=== PATIENT | male | born 1945 | race Caucasian/White ===

== ENCOUNTER 2017-05-12 09:27 | Inpatient (IN) | END 2017-05-14 11:49 | disposition home health service (06) | DRG 189 ==

== ENCOUNTER 2017-05-28 07:51 | Inpatient (IN) | END 2017-06-03 19:20 | disposition home health service (06) | DRG 871 ==

== ENCOUNTER 2018-05-11 15:07 | Observation (INO) | payer MEDICARE, OTHER ==
[~2018-05-11] VITALS: Ht 165.1 cm; Wt 79.0 kg
[~2018-05-11 15:07] MED LIST: ALFU10TA2 PO; ALLO100T PO; ASPI1CPM8 PO; CLON0.5T14 PO; DONE10TA7 PO; DUTA0.5C PO; FOLI-49 PO; ISOS30TA67 PO; LEVO25TA6 PO; MONT10TA24 PO; SEVE800T7 PO; TEMA15CA PO; TRAZ-111 PO
[2018-05-11] MEDS ORDERED: ALBUTEROL 0.5% (NEB) 2.5 MG/0.5 ML AMP INH STA (15:15)
[2018-05-11] MEDS ORDERED: METHYLPREDNISOLONE 125 MG INJ IV ONE (16:00)
[2018-05-11] MEDS ORDERED: FEBU40TA PO (16:22)
[2018-05-11] MEDS ORDERED: ALLO100T PO (16:22)
[2018-05-11] MEDS ORDERED: LEVO25TA6 PO (16:23)
[2018-05-11] MEDS ORDERED: CLON1TAB13 PO (16:23)
[2018-05-11] MEDS ORDERED: MONT10TA24 PO (16:24)
[2018-05-11] MEDS ORDERED: SEVE800T7 PO (16:24)
[2018-05-11] MEDS ORDERED: FOLI-49 PO (16:24)
[2018-05-11] MEDS ORDERED: DEXL60CA2 PO (16:25)
[2018-05-11] MEDS ORDERED: ROPI0.5T2 PO (16:26)
[2018-05-11] MEDS ORDERED: ROPI0.253 PO (16:27)
[2018-05-11] MEDS ORDERED: FENO160T13 PO (16:27)
[2018-05-11] MEDS ORDERED: ASPI1CPM8 PO (16:29)
[2018-05-11] MEDS ORDERED: VILA40TA PO (16:31)
[2018-05-11] MEDS ORDERED: LORAZEPAM 2 MG INJ IV ONE (17:30)
--- NOTE | 2018-05-11 18:16 | ERD ---
ER Documentation Chief Complaint Chief Complaint SOB 1 HOUR INTO DIALYSIS HPI This is 72 male with a history of asthma, COPD, ESRD who went to [facility] ER for COPD exacerbation/short of breath this morning. He was given breathing treatments and sent home. The patient then went to dialysis just prior to arrival and he was on the chair for about an hour when he began having shortness of breath again. The patient was brought here instead. He is complaining of shortness of breath consistent with prior COPD exacerbations. No recent cough illness or fever. No chest pain. The patient has oxygen at home he is wearing his oxygen 24/ for the past couple of weeks ROS All systems reviewed and are negative except as per history of present illness. Medications Home Meds Reported Medications Vilazodone Hcl (Viibryd) 40 Mg Tablet, 40 MG PO DAILY, TAB 05/11/18 Aspirin-Dipyridamole* (Aggrenox*) 25-200 Mg Cpmp.12hr, 1 CAP PO BID, CAP 05/11/18 Fenofibrate, Micronized* (Fenofibrate*) 160 Mg Tablet, 160 MG PO DAILY, TAB 05/11/18 Ropinirole Hcl* (Ropinirole Hcl*) 0.25 Mg Tablet, 0.25 MG PO HS, TAB 05/11/18 Dexlansoprazole (Dexilant) 60 Mg Jese., 60 MG PO DAILY, #30 CAP 05/11/18 Sevelamer Carbonate* (Renvela*) 800 Mg Tablet, 0.8 GM PO WITH MEALS, TAB 05/11/18 Montelukast Sodium* (Montelukast Sodium*) 10 Mg Tablet, 10 MG PO QHS, #30 TAB 05/11/18 Folic Acid* (Folic Acid*) 1 Mg Tablet, 1 MG PO DAILY, TAB 05/11/18 Levothyroxine Sodium* (Levothyroxine Sodium*) 25 Mcg Tablet, 25 MCG PO BEFORE BREAKFAST, #30 TAB 05/11/18 Clonazepam* (Clonazepam*) 1 Mg Tablet, 1 MG PO BID PRN for ANXIETY, TAB 05/11/18 Allopurinol* (Allopurinol*) 100 Mg Tablet, 100 MG PO DAILY, TAB 05/11/18 Febuxostat* (Uloric*) 40 Mg Tablet, 40 MG PO DAILY, TAB 05/11/18 Discontinued Reported Medications Ropinirole Hcl* (Ropinirole Hcl*) 0.5 Mg Tablet, 0.5 MG PO HS, TAB 05/11/18 Trazodone Hcl* (Trazodone Hcl*) 50 Mg Tablet, 50 MG PO QHS, #30 TAB 05/28/17 Temazepam* (Temazepam*) 15 Mg Capsule, 15 MG PO HS PRN for INSOMNIA, CAP 05/28/17 Sevelamer Carbonate* (Renvela*) 800 Mg Tablet, 1.6 GM PO WITH MEALS, TAB 05/28/17 Montelukast Sodium* (Montelukast Sodium*) 10 Mg Tablet, 10 MG PO QHS, #30 TAB 05/28/17 Levothyroxine Sodium* (Levothyroxine Sodium*) 25 Mcg Tablet, 25 MCG PO BEFORE BREAKFAST, #30 TAB 05/28/17 Isosorbide Mononitrate* (Isosorbide Mononitrate*) 30 Mg Tab.er.24h, 30 MG PO DAILY, TAB 05/28/17 Folic Acid* (Folic Acid*) 1 Mg Tablet, 1 MG PO DAILY, TAB 05/28/17 Dutasteride* (Avodart*) 0.5 Mg Capsule, 0.5 MG PO DAILY, CAP 05/28/17 Clonazepam* (Clonazepam*) 0.5 Mg Tablet, 0.5 MG PO BID PRN for ANXIETY, TAB 05/28/17 Donepezil* (Aricept*) 10 Mg Tablet, 10 MG PO QHS, TAB 05/28/17 Allopurinol* (Allopurinol*) 100 Mg Tablet, 100 MG PO DAILY, TAB 05/28/17 Alfuzosin Hcl* (Alfuzosin Hcl*) 10 Mg Tab.er.24h, 10 MG PO DAILY, #30 TAB.SA 05/28/17 Aspirin-Dipyridamole* (Aggrenox*) 25-200 Mg Cpmp.12hr, 1 CAP PO DAILY, CAP 05/28/17 Allergies Allergies: Coded Allergies: No Known Allergy (Unverified , 05/11/18) PMhx/Soc History of Surgery: Yes (LEFT KIDNEY REMOVAL, LEFT ARM STENT PLACEMENT) Anesthesia Reaction: No Hx Neurological Disorder: No Hx Respiratory Disorders: Yes (COPD) Hx Cardiac Disorders: Yes Hx Psychiatric Problems: No Hx Miscellaneous Medical Probl: Yes (CKD) Hx Alcohol Use: No Hx Substance Use: No Hx Tobacco Use: No Smoking Status: Unknown if ever smoked FmHx Family History: No coronary disease Physical Exam Vitals Vital Signs Date Temp Pulse Resp B/P (MAP) Pulse Ox O2 O2 Flow FiO2 Time Delivery Rate 05/11/18 95 30 131/53 97 Nasal 3.0 17:57 (79) Cannula 05/11/18 87 19 98 Nasal 3.0 16:34 Cannula 05/11/18 83 21 155/84 99 Nasal 16:23 (107) Cannula 05/11/18 Nasal 3.0 15:15 Cannula 05/11/18 Nasal 3 15:15 Cannula 05/11/18 97.8 78 24 152/76 95 15:12 (101) Physical Exam Const: Well-developed, well-nourished Head: Atraumatic, normocephalic Eyes: Normal Conjunctiva, PERRLA, EOMI, normal sclera, no nystagmus ENT: Normal External Ears, Nose and Mouth, moist mucus membranes. Neck: Full range of motion. No meningismus, no lymphadenopathy. Resp: Moderate increased work of breathing with decreased breath sounds bilaterally] Cardio: Regular rate and rhythm, no murmurs, S1 S2 present Abd: Soft, non tender x 4, non distended. Normal bowel sounds, no guarding or rebound, no pulsitile abdominal masses or bruits Skin: No petechiae or rashes, no ecchymosis , no maculopapular rash Back: No midline or flank tenderness Ext: No cyanosis, or edema, FROM x 4, normal inspection, neurovascularly intact x 4 Neur: Awake and alert, STR 5/5 x 4, sensation intact x 4, no focal findings, cerebellum intact Psych: Normal Mood and Affect Result Diagram: 05/11/18 1524 05/11/18 1524 Results 24 hrs Laboratory Tests Test 05/11/18 15:24 White Blood Count 6.7 10^3/ul Red Blood Count 3.71 10^6/ul Hemoglobin 11.5 g/dl Hematocrit 36.6 % Mean Corpuscular Volume 98.7 fl Mean Corpuscular Hemoglobin 31.0 pg Mean Corpuscular Hemoglobin Concent 31.4 g/dl Red Cell Distribution Width 14.4 % Platelet Count 225 10^3/UL Mean Platelet Volume 9.3 fl Immature Granulocytes % 0.500 % Neutrophils % 94.3 % Lymphocytes % 2.7 % Monocytes % 2.0 % Eosinophils % 0.3 % Basophils % 0.2 % Nucleated Red Blood Cells % 0.0 /100WBC Immature Granulocytes # 0.030 10^3/ul Neutrophils # 6.3 10^3/ul Lymphocytes # 0.2 10^3/ul Monocytes # 0.1 10^3/ul Eosinophils # 0.0 10^3/ul Basophils # 0.0 10^3/ul Nucleated Red Blood Cells # 0.0 10^3/ul Prothrombin Time 12.3 Sec Prothrombin Time Ratio 1.0 INR International Normalized Ratio 0.90 Activated Partial Thromboplast Time 37.5 Sec Sodium Level 137 mmol/L Potassium Level 4.0 mmol/L Chloride Level 89 mmol/L Carbon Dioxide Level 35 mmol/L Anion Gap 13 Blood Urea Nitrogen 53 mg/dl Creatinine 8.29 mg/dl Est Glomerular Filtrat Rate mL/min mL/min Glucose Level 124 mg/dl Calcium Level 9.5 mg/dl Total Bilirubin 0.1 mg/dl Direct Bilirubin 0.00 mg/dl Indirect Bilirubin 0.1 mg/dl Aspartate Amino Transf (AST/SGOT) 13 IU/L Alanine Aminotransferase (ALT/SGPT) 9 IU/L Alkaline Phosphatase 77 IU/L Troponin I 0.015 ng/ml Total Protein 8.3 g/dl Albumin 4.6 g/dl Globulin 3.70 g/dl Albumin/Globulin Ratio 1.24 Current Medications Medications Dose Sig/Juan Start Time Status Last (Trade) Ordered Route PRN Stop Time Admin Dose Reason Admin Albuterol 10 mg ONCE STAT 05/11/18 DC 05/11/18 (Proventil INH 15:15 05/11/18 16:34 0.5% (Neb)) 15:16 125 mg ONCE ONCE 05/11/18 DC 05/11/18 Methylprednis IV 16:00 05/11/18 16:05 olone Sodium 16:01 Succinate (Solu-Medrol) Lorazepam 0.5 mg ONCE ONCE 05/11/18 DC 05/11/18 (Ativan) IV 17:30 05/11/18 17:42 17:31 Procedures/MDM EKG: Rate/Rhythm: Normal sinus rhythm with PAC, heart rate 79, incomplete right bundle branch block QRS, ST, QT: NORMAL CA, QRS, QT] Impression: Abnormal EKG PROCEDURE: XR Chest. CLINICAL INDICATION: Shortness of breath TECHNIQUE: Single portable view of the chest was obtained COMPARISON: CR CHEST 11/23/2015 FINDINGS: The trachea is midline. The cardiac silhouette and pulmonary vascularity are within normal limits. The lungs are clear. The costophrenic angles are sharp. IMPRESSION: 1. No evidence of acute cardiopulmonary disease. RPTAT: AAPP Carl Moser Physician Date Time Electronically viewed and signed by Carl Moser Physician on 05/11/2018 15:53 JL/ CC: AMOS MARQUIS DO [id number] Patient received neb treatments here 10 mg continuous with IV Solu-Medrol. I will admit the patient for observation for COPD exacerbation because he has gone to the ER twice today and is not improving. He also only had 1 hour of dialysis and may need to have this done more tonight. Departure Diagnosis: Primary Impression: COPD exacerbation Additional Impression: Shortness of breath Condition: Stable AMOS MARQUIS DO May 11, 2018 18:16
[2018-05-11] MEDS ORDERED: ONDANSETRON 4 MG INJ IV PRN (18:30)
[2018-05-11] MEDS ORDERED: ACETAMINOPHEN 325 MG TAB PO PRN (18:30)
--- NOTE | 2018-05-11 18:49 | HP ---
Date/Time of Note Date/Time of Note DATE: 05/11/18 TIME: 18:43 Assessment/Plan VTE Prophylaxis Pharmacological prophylaxis: heparin Lines/Catheters IV Catheter Type (from Nrs): Saline Lock Assessment/Plan Hospital Course 72-year-old male with end-stage renal disease who presents with shortness of breath for the last couple weeks as well as with seems like urinary retention Shortness of breath: -Given known emphysema is suspected to this though he does not have any audible wheezing. We will still treat him with bronchodilators. This is not from overloaded his x-ray is clear. We will check an echo. We will check a VQ scan as well to exclude PE per Dr Santacruz ESRD: - HD per renal Suprapubic tenderness/fullness concerning for retention: - Caraballo insertion Gout: - Allopurinol Discharge pending workup Result Diagram: 05/11/18 1524 05/11/18 1524 Results 24hrs Laboratory Tests Test 05/11/18 15:24 White Blood Count 6.7 Red Blood Count 3.71 #L Hemoglobin 11.5 #L Hematocrit 36.6 #L Mean Corpuscular Volume 98.7 Mean Corpuscular Hemoglobin 31.0 Mean Corpuscular Hemoglobin Concent 31.4 L Red Cell Distribution Width 14.4 Platelet Count 225 # Mean Platelet Volume 9.3 Immature Granulocytes % 0.500 H Neutrophils % 94.3 H Lymphocytes % 2.7 L Monocytes % 2.0 Eosinophils % 0.3 Basophils % 0.2 Nucleated Red Blood Cells % 0.0 Immature Granulocytes # 0.030 Neutrophils # 6.3 Lymphocytes # 0.2 L Monocytes # 0.1 L Eosinophils # 0.0 Basophils # 0.0 Nucleated Red Blood Cells # 0.0 Prothrombin Time 12.3 Prothrombin Time Ratio 1.0 INR International Normalized Ratio 0.90 Activated Partial Thromboplast Time 37.5 H Sodium Level 137 Potassium Level 4.0 Chloride Level 89 L Carbon Dioxide Level 35 H Anion Gap 13 Blood Urea Nitrogen 53 H Creatinine 8.29 H Est Glomerular Filtrat Rate mL/min Glucose Level 124 Calcium Level 9.5 Total Bilirubin 0.1 L Direct Bilirubin 0.00 Indirect Bilirubin 0.1 Aspartate Amino Transf (AST/SGOT) 13 L Alanine Aminotransferase (ALT/SGPT) 9 L Alkaline Phosphatase 77 Troponin I 0.015 Total Protein 8.3 H Albumin 4.6 Globulin 3.70 H Albumin/Globulin Ratio 1.24 HPI/ROS Admit Date/Time Admit Date/Time Hx of Present Illness This 72-year-old male with a history of end-stage renal disease, and emphysema who presents with shortness of breath. Patient describes shortness of breath for the last couple weeks. Has generally been tolerant to this and did not seek medical care until today. Went to an outside ER at [facility] where they gave him prednisone and nebulizer treatments. They then sent him to his normally scheduled dialysis treatment. There he complained of shortness of breath though treating procurement forester Dr. Santacruz noted clear lungs at that time. Given his complaint however he was sent to the emergency room. Here he again he has been given bronchodilators. When I saw him he feels better. His daughter is at the bedside says that he has been having a hard time even walking across the room because he gets winded. He also complains of pain in his lower pelvis feels like he is retaining urine. He does have prominent tenderness in the suprapubic region PMH/Family/Social Past Medical History Medical History: renal disease Medications Current Medications Ondansetron HCl (Zofran Inj) 4 mg ER BRIDGE PRN IV NAUSEA AND/OR VOMITING; Start 05/11/18 at 18:30; Stop 05/12/18 at 18:29 Acetaminophen (Tylenol Tab) 650 mg ER BRIDGE PRN PO MILD PAIN(1-3)OR ELEVATED TEMP; Start 05/11/18 at 18:30; Stop 05/12/18 at 18:29 IV Flush (NS 3 ml) 3 ml PER PROTOCOL IV ; Start 05/11/18 at 19:00; Status UNV Acetaminophen/ Hydrocodone Bitart ([place] (5/325)) 1 tab Q6H PRN PO MODERATE PAIN LEVEL 4-6; Start 05/11/18 at 19:00; Status UNV Heparin Sodium (Porcine) (Heparin (5000 Units/1ml)) 5,000 unit Q12 SC ; Start 05/11/18 at 21:00; Status UNV Coded Allergies: No Known Allergy (Unverified , 05/11/18) Past Surgical History Past Surgical Hx: no surgical history Family History Significant Family History: no pertinent family hx Social History Alcohol Use: none Smoking Status: Unknown if ever smoked Drug Use: none Exam/Review of Systems Vital Signs Vitals Vital Signs Date Temp Pulse Resp B/P (MAP) Pulse Ox O2 O2 Flow FiO2 Time Delivery Rate 05/11/18 95 30 131/53 97 Nasal 3.0 17:57 (79) Cannula 05/11/18 97.8 15:12 Exam Exam Appears well and is in no distress Regular rate and rhythm with flat neck veins Breathing comfortably. Lungs are clear though distant breath sounds. No wheezing Abdomen with prominent suprapubic tenderness Remedies without edema JENELLE SIMPSON MD May 11, 2018 18:49
[2018-05-11] MEDS ORDERED: HYDROCODONE/APAP (5/325) TAB PO PRN (19:00)
[2018-05-11] MEDS ORDERED: NACL 0.9% 3 ML SYG IV SCH (19:00)
[2018-05-11] MEDS ORDERED: ROPINIROLE 0.25 MG TAB PO SCH (21:00)
[2018-05-11] MEDS: HEPARIN 5,000 UNIT/1 ML VIAL SC SCH (21:25)
[2018-05-11] MEDS: DIPYRIDAMOLE/ASPIRIN (SR) CAP PO SCH (21:25)
[2018-05-11] MEDS: MONTELUKAST 10 MG TAB PO SCH (21:25)
[2018-05-11] MEDS: ALBUTEROL/IPRATROPIUM (NEB) 3 ML AMP HHN SCH (21:34)
[2018-05-11 22:00] VITALS: Ht 165.1 cm; Wt 79.0 kg
[2018-05-11 22:27] VITALS: BP 147/70; PULSE 92; RESP 18
[2018-05-11 23:03] VITALS: PULSE 93
[2018-05-12] VITALS (18 sets, daily range): BP systolic 98–151; BP diastolic 52–93; PULSE 52–98; RESP 17–20
[2018-05-12] MEDS: ALBUTEROL/IPRATROPIUM (NEB) 3 ML AMP HHN SCH ×4 (01:04→20:00)
[2018-05-12] MEDS: clonAZEPAM 0.5 MG TAB PO PRN ×2 (04:27→20:41)
[2018-05-12] MEDS: LEVOTHYROXINE 25 MCG TAB PO SCH (06:28)
--- NOTE | 2018-05-12 08:23 | CONS ---
DATE OF ADMISSION: 05/11/2018 DATE OF CONSULTATION: 05/12/2018 TYPE OF CONSULTATION: Nephrology. REASON FOR CONSULTATION: End-stage renal disease. REQUESTING PHYSICIAN: Dr. Garcia. HISTORY OF PRESENT ILLNESS: This is a 72-year-old male with a past medical history of end-stage willard l disease, history of COPD, history of hypertension, anxiety disorder, and anemia who presents to [facility] from his dialysis center with shortness of breath. The patient states that he was having hemodialysis and in approximately 1 hour developed shortness of breath. The patient a s a result was brought in to the emergency room. Upon arrival in the emergency room, the patient had a chest x-ray which showed no obvious infiltrates. The patient was treated for COPD exacerbation wi th nebulizers, supplemental oxygen and steroids. The patient was then subsequently admitted to [facility] for continued care and further evaluation. Upon my evaluation of the patient at this time, he is complaining of general anxiety. Continue to co mplain of cough. Denies any hemoptysis, hematemesis, hematochezia. PAST MEDICAL HISTORY: As stated above, history of end-stage renal disease, history of COPD, history of mineral bone disorder, history of anxiety disorder. PAST SURGICAL HISTORY: Status post left nephrectomy, status post cataract surgery, status post Perm- A-Cath, status post AV fistula. FAMILY HISTORY: Noncontributory. SOCIAL HISTORY: Does not drink, smoke or do drugs. MEDICATIONS: The patient's medications have been reviewed. REVIEW OF SYSTEMS: A 14-point review of systems conducted. Pertinent positives stated in HPI, other villagomez negative. PHYSICAL EXAMINATION: VITAL SIGNS: Blood pressure is 146/86, respirations 16, pulse of 76, temperature 98.6. HEENT: Head is normocephalic. Pupils are reactive to light. NECK: Supple. HEART: Regular rate. LUNGS: Show diminished breath sounds at the base. ABDOMEN: Soft, nontender to palpation without rebound or guarding. EXTREMITIES: Negative for clubbing, cyanosis, no edema. DERMATOLOGIC: No rashes. MUSCULOSKELETAL: No joint effusions. NEUROLOGIC: No focal deficits. MEDICATIONS: The patient's medications have been reviewed. LABORATORY DATA: Has a white count 5.5, hemoglobin 10.6, platelet count 268. Sodium 141, potassium 4.5, BUN 76, creatinine 9.39, calcium is 8.3. ASSESSMENT AND PLAN: This is a 72-year-old male who presents with: 1. End-stage renal disease. The patient is on dialysis Friday, Friday, Friday. The patient had approximately 1 hour of hemodialysis yesterday. Plan is for dialysis today for 3 hours 3k bath, brandy cium 2.5. We will ultrafiltrate as tolerated. 2. Anemia. Continue to monitor hemoglobin and hematocrit levels. Will give Epogen as needed. 3. Mineral bone disorder, monitor calcium and phosphorus levels. 4. Hypertension. Continue current blood pressure regimen. Continue ultrafiltration dialysis. 5. Chronic obstructive pulmonary disease exacerbation. Continue medical management. Continue nebul izers, supplemental oxygen. 6. Urinary retention. The patient is status post Caraballo catheter placement. Continue to monitor. 7. History of gout. Continue allopurinol. Thank you, Dr. Garcia, for this interesting consult. It will be a pleasure to follow the patient wi th you throughout the hospital course. Dictated By: KITA ALVAREZ DO NR/NTS Conf#: [id number] DID#: [id number] CC: JENELLE GARCIA MD; SANKET SOLIMAN DO;*EndCC*
[2018-05-12] MEDS: FOLIC ACID 1 MG TAB PO SCH (09:20)
[2018-05-12] MEDS: predniSONE 20 MG TAB PO SCH (09:20)
[2018-05-12] MEDS: FEBUXOSTAT 40 MG TABLET PO SCH (09:20)
[2018-05-12] MEDS: SEVELAMER CARBONATE 0.8 GM PKT PO SCH ×3 (09:20→17:07)
[2018-05-12] MEDS: ALLOPURINOL 100 MG TAB PO SCH (09:20)
[2018-05-12] MEDS: HEPARIN 5,000 UNIT/1 ML VIAL SC SCH ×2 (09:49→20:43)
[2018-05-12] MEDS: DIPYRIDAMOLE/ASPIRIN (SR) CAP PO SCH ×2 (09:52→20:41)
--- NOTE | 2018-05-12 11:04 | RADRPT ---
Echocardiogram Report Patient Name: JERRICA HOPPER Gender: Male Date: 1945 Study Date: 12-May-2018 Supervisor Curing Room: [facility] Location: 503 Ref. Physician: JENELLE SIMPSON Quality: Technically Difficult Study Procedures: Transthoracic echocardiogram with complete 2D, M-Mode, and doppler examination. Indications: Shortness of breath. 2D/M Mode Doppler Measurement Value Normal Ranges Measurement Value Normal Ranges LVIDd 2D 4.2 3.5 - 5.6 cm AV Peak Merrill 1.4 m/sec LVIDs 2D 2.5 2.1 - 4.1 cm AV Peak PG 8.0 mmHg LVPWd 2D 1.2 0.6 - 1.1 cm LVOT Peak Merrill 0.8 m/sec IVSd 2D 1.2 0.6 - 1.1 cm LVOT Peak PG 3.0 mmHg AoR Diam 2D 3.1 2.0 - 3.7 cm TR Peak Merrill 2.8 m/sec LA/Ao 2D 1 0 - 1 TR Peak PG 31.0 mmHg LA Dimen 2D 3.7 2.3 - 4.0 cm RVSP 39.0 mmHg RA Pressure 8.0 Findings Left Ventricle: Normal left ventricular systolic function. Normal left ventricular cavity size. Mild concentric left ventricular hypertrophy. Ejection fraction is visually estimated at 60 %. Right Ventricle: Normal right ventricular size. Normal right ventricular systolic function. Left Atrium: The left atrium is normal in size. Right Atrium: The right atrium is normal in size. Mitral Valve: Normal appearance and function of the mitral valve with trace physiologic regurgitation. Aortic Valve: Normal appearance of the aortic valve. No significant aortic stenosis or insufficiency. Tricuspid Valve: Normal appearance of the tricuspid valve. Estimated peak PA systolic pressure 39 mmHg. There is mild tricuspid regurgitation. Pulmonic Valve: Normal pulmonic valve appearance. Pericardium: Normal pericardium with no significant pericardial effusion. Aorta: Normal aortic root. IVC: Dilated IVC with respiratory collapse consistent with elevated right atrial pressure. Conclusions Normal left ventricular systolic function. Normal left ventricular cavity size. Mild concentric left ventricular hypertrophy. Ejection fraction is visually estimated at 60 %. Normal appearance and function of the mitral valve with trace physiologic regurgitation. Normal appearance of the tricuspid valve. Estimated peak PA systolic pressure 39 mmHg. There is mild tricuspid regurgitation. Normal appearance of the aortic valve. No significant aortic stenosis or insufficiency. Electronically Signed By: Eladio Curiel 12-May-2018 11:02:50 -0800 Patient Name: JERRICA HOPPER Study Date: 12-May-[id number]
[2018-05-12] MEDS ORDERED: ONDANSETRON 4 MG INJ ONE (11:29)
[2018-05-12] MEDS: ONDANSETRON 4 MG INJ IV PRN (11:31)
--- NOTE | 2018-05-12 13:37 | CONS ---
Date/Time of Note Date/Time of Note DATE: 05/12/18 TIME: 13:36 Assessment/Plan Assessment/Plan Hospital Course Summary Assessment and Plan: Assessment: Epigastric pain Persistent nausea History of smokingquit 3 years ago COPD with exacerbation ESRD on HD Plan: Gallbladder us- if neg may need to repeat EGD Start PPI Endoscopy - risks/benefits/alternatives/indications of procedure and sedation/anesthesia discussed with patient who states understanding and gives informed consent to proceed. Monitor labs Patient seen in collaboration with Dr. Sesay Result Diagram: 05/12/18 0539 05/12/1839 Results 24hrs Laboratory Tests Test 05/11/18 15:24 05/12/18 05:39 White Blood Count 6.7 5.5 Red Blood Count 3.71 #L 3.41 L Hemoglobin 11.5 #L 10.6 L Hematocrit 36.6 #L 33.4 L Mean Corpuscular Volume 98.7 97.9 Mean Corpuscular Hemoglobin 31.0 31.1 Mean Corpuscular Hemoglobin Concent 31.4 L 31.7 L Red Cell Distribution Width 14.4 14.5 Platelet Count 225 # 268 Mean Platelet Volume 9.3 9.7 Immature Granulocytes % 0.500 H 0.700 H Neutrophils % 94.3 H 91.7 H Lymphocytes % 2.7 L 2.9 L Monocytes % 2.0 4.7 Eosinophils % 0.3 0.0 Basophils % 0.2 0.0 Nucleated Red Blood Cells % 0.0 0.0 Immature Granulocytes # 0.030 0.040 H Neutrophils # 6.3 5.0 Lymphocytes # 0.2 L 0.2 L Monocytes # 0.1 L 0.3 Eosinophils # 0.0 0.0 Basophils # 0.0 0.0 Nucleated Red Blood Cells # 0.0 0.0 Prothrombin Time 12.3 Prothrombin Time Ratio 1.0 INR International Normalized Ratio 0.90 Activated Partial Thromboplast Time 37.5 H Sodium Level 137 141 Potassium Level 4.0 4.5 Chloride Level 89 L 86 L Carbon Dioxide Level 35 H 36 H Anion Gap 13 19 H Blood Urea Nitrogen 53 H 76 H Creatinine 8.29 H 9.39 H Est Glomerular Filtrat Rate mL/min Glucose Level 124 124 Calcium Level 9.5 10.3 H Total Bilirubin 0.1 L 0.0 L Direct Bilirubin 0.00 0.00 Indirect Bilirubin 0.1 0.0 Aspartate Amino Transf (AST/SGOT) 13 L 14 L Alanine Aminotransferase (ALT/SGPT) 9 L 16 Alkaline Phosphatase 77 58 Troponin I 0.015 Total Protein 8.3 H 7.2 # Albumin 4.6 4.4 Globulin 3.70 H 2.80 Albumin/Globulin Ratio 1.24 1.57 Hemoglobin A1c 5.5 CC: ARLEEN COONEY ; Consultation Date/Type/Reason Admit Date/Time Date of Consultation: May 12, 2018 Type of Consult GI Reason for Consultation Persistent nausea Hx of Present Illness This is 72 male with PMH of asthma, COPD, ESRD admitted for SOB. With evaluation patient noted to have epigastric pain and postprandial nausea off and on for the past 2 months. Consulted for further evaluation. At time evaluation patient has just returned from nuclear med he is status post VQ scan, results showing ventilation/perfusion scan is considered technically in the ED determinant/intermediate probability of PE primarily secondary to obstructive airway disease. 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 He has not tried anything to alleviate the pain. He states he previously had an upper endoscopy about 3-6 months ago per patient he believes it was negative he is unable to obtain results. He additionally states he had a colonoscopy about a year ago also believes this is negative. Patient denies diarrhea, constipation, hematochezia. Does complain of dark stool however patient is on iron. Discussed plan to start PPI we will additionally obtain gallbladder ultrasound, if negative may need to repeat EGD patient verbalized understanding and is agreeable to plan. Review of Systems: A 12 system, review was conducted and is negative except as noted in the HPI or here. Past Medical History Medical History: renal disease Medications Current Medications IV Flush (NS 3 ml) 3 ml PER PROTOCOL IV ; Start 05/11/18 at 19:00 Acetaminophen/ Hydrocodone Bitart ([place] (5/325)) 1 tab Q6H PRN PO MODERATE PAIN LEVEL 4-6; Start 05/11/18 at 19:00 Heparin Sodium (Porcine) (Heparin (5000 Units/1ml)) 5,000 unit Q12 SC Last administered on 05/12/18at 09:49; Admin Dose 5,000 UNIT; Start 05/11/18 at 21:00 Allopurinol (Zyloprim) 100 mg DAILY PO Last administered on 05/12/18 09:20; Admin Dose 100 MG; Start 05/12/18 at 09:00 Dipyridamole/ Aspirin (Aggrenox) 1 cap BID PO Last administered on 05/12/18 09:52; Admin Dose 1 CAP; Start 05/11/18 at 21:00 Clonazepam (Klonopin) 1 mg BID PRN PO ANXIETY Last administered on 05/12/18 04:27; Admin Dose 1 MG; Start 05/11/18 at 19:00 Febuxostat (Uloric) 40 mg DAILY PO Last administered on 05/12/18 09:20; Admin Dose 40 MG; Start 05/12/18 at 09:00 Folic Acid (Folic Acid) 1 mg DAILY PO Last administered on 05/12/18 09:20; Admin Dose 1 MG; Start 05/12/18 at 09:00 Levothyroxine Sodium (Synthroid) 25 mcg BEFORE BREAKFAST PO Last administered on 05/12/18 06:28; Admin Dose 25 MCG; Start 05/12/18 at 07:00 Montelukast Sodium (Singulair) 10 mg QHS PO Last administered on 05/11/18 21:25; Admin Dose 10 MG; Start 05/11/18 at 21:00 Sevelamer Carbonate (Renvela) 0.8 gm WITH MEALS PO Last administered on 05/12/18 11:31; Admin Dose 0.8 GM; Start 05/12/18 at 07:55 Albuterol/ Ipratropium (Duoneb) 3 ml Q6H RESP THERAPY HHN Last administered on 05/12/18 13:23; Admin Dose 3 ML; Start 05/11/18 at 20:00 Prednisone (Prednisone) 40 mg DAILY PO Last administered on 05/12/18 09:20; Admin Dose 40 MG; Start 05/12/18 at 09:00 Ondansetron HCl (Zofran Inj) 4 mg Q6H PRN IV NAUSEA AND/OR VOMITING Last administered on 05/12/18 11:31; Admin Dose 4 MG; Start 05/12/18 at 11:30 Allergies: Coded Allergies: No Known Allergy (Unverified , 05/11/18) Past Surgical History Past Surgical Hx: no surgical history Social History Alcohol Use: none Smoking Status: Former smoker Drug Use: none Exam/Review of Systems Vital Signs Vitals Vital Signs Date Temp Pulse Resp B/P (MAP) Pulse Ox O2 O2 Flow FiO2 Time Delivery Rate 05/12/18 67 20 97 Nasal 2.0 13:24 Cannula 05/12/18 98.0 98/53 (68) 11:30 Intake and Output 05/11/18 05/11/18 05/12/18 1515:00 23:00 07:00 IntakeIntake Total 300 ml OutputOutput Total 450 ml BalanceBalance -150 ml Exam Constitutional: alert, oriented Psych: no complaints Head: normocephalic Eyes: nl conjunctiva ENMT: nl external ears & nose Neck: supple Respiratory: clear to auscultation, crackles/rales Cardiovascular: regular rate and rhythm Gastrointestinal: soft, bowel sounds; No ascites, No distended, No firm, No hepatomegaly, No mass Skin: other (dialysis catheter) Medications Medications Current Medications IV Flush (NS 3 ml) 3 ml PER PROTOCOL IV ; Start 05/11/18 at 19:00 Acetaminophen/ Hydrocodone Bitart ([place] (5/325)) 1 tab Q6H PRN PO MODERATE PAIN LEVEL 4-6; Start 05/11/18 at 19:00 Heparin Sodium (Porcine) (Heparin (5000 Units/1ml)) 5,000 unit Q12 SC Last administered on 05/12/18at 09:49; Admin Dose 5,000 UNIT; Start 05/11/18 at 21:00 Allopurinol (Zyloprim) 100 mg DAILY PO Last administered on 05/12/18at 09:20; Admin Dose 100 MG; Start 05/12/18 at 09:00 Dipyridamole/ Aspirin (Aggrenox) 1 cap BID PO Last administered on 05/12/18at 09:52; Admin Dose 1 CAP; Start 05/11/18 at 21:00 Clonazepam (Klonopin) 1 mg BID PRN PO ANXIETY Last administered on 05/12/18at 04:27; Admin Dose 1 MG; Start 05/11/18 at 19:00 Febuxostat (Uloric) 40 mg DAILY PO Last administered on 05/12/18at 09:20; Admin Dose 40 MG; Start 05/12/18 at 09:00 Folic Acid (Folic Acid) 1 mg DAILY PO Last administered on 05/12/18 09:20; Admin Dose 1 MG; Start 05/12/18 at 09:00 Levothyroxine Sodium (Synthroid) 25 mcg BEFORE BREAKFAST PO Last administered on 05/12/18 06:28; Admin Dose 25 MCG; Start 05/12/18 at 07:00 Montelukast Sodium (Singulair) 10 mg QHS PO Last administered on 05/11/18 21:25; Admin Dose 10 MG; Start 05/11/18 at 21:00 Sevelamer Carbonate (Renvela) 0.8 gm WITH MEALS PO Last administered on 05/12/18 11:31; Admin Dose 0.8 GM; Start 05/12/18 at 07:55 Albuterol/ Ipratropium (Duoneb) 3 ml Q6H RESP THERAPY HHN Last administered on 05/12/18 13:23; Admin Dose 3 ML; Start 05/11/18 at 20:00 Prednisone (Prednisone) 40 mg DAILY PO Last administered on 05/12/18 09:20; Admin Dose 40 MG; Start 05/12/18 at 09:00 Ondansetron HCl (Zofran Inj) 4 mg Q6H PRN IV NAUSEA AND/OR VOMITING Last administered on 05/12/18 11:31; Admin Dose 4 MG; Start 05/12/18 at 11:30 ALBA LEE May 12, 2018 13:37
--- NOTE | 2018-05-12 13:44 | PN ---
Date/Time of Note Date/Time of Note DATE: 05/12/18 TIME: 13:42 Assessment/Plan VTE Prophylaxis SCD applied (from Nsg): No SCD contraindicated: low risk/ambulating Pharmacological prophylaxis: heparin Lines/Catheters IV Catheter Type (from Nrsg): Saline Lock Central line still needed: Yes Urinary Cath still in place: Yes Reason Cath still needed: urinary retention Assessment/Plan Hospital Course 72-year-old male with end-stage renal disease who presents with shortness of breath for the last couple weeks as well as with seems like urinary retention Shortness of breath: -Given known emphysema is suspected to this though he does not have any audible wheezing. We will still treat him with bronchodilators. This is not from overloaded his x-ray is clear. Echo nnoraml. We will check a VQ scan as well to exclude PE per Dr Santacruz - Swapnil standing nebs as causing agitation, breathing normalized Dyspepsia and nausea: - EGD per GI given onc risk factors Anxiety; - Continue chronic benzos, has been on klonipin daily for many years he says ESRD: - HD per renal Suprapubic tenderness/fullness concerning for retention: - swapnil patel Gout: - Allopurinol Discharge pending workup Result Diagram: 05/12/18 0539 05/12/18 0539 Results 24hrs Laboratory Tests Test 05/11/18 15:24 05/12/18 05:39 White Blood Count 6.7 5.5 Red Blood Count 3.71 #L 3.41 L Hemoglobin 11.5 #L 10.6 L Hematocrit 36.6 #L 33.4 L Mean Corpuscular Volume 98.7 97.9 Mean Corpuscular Hemoglobin 31.0 31.1 Mean Corpuscular Hemoglobin Concent 31.4 L 31.7 L Red Cell Distribution Width 14.4 14.5 Platelet Count 225 # 268 Mean Platelet Volume 9.3 9.7 Immature Granulocytes % 0.500 H 0.700 H Neutrophils % 94.3 H 91.7 H Lymphocytes % 2.7 L 2.9 L Monocytes % 2.0 4.7 Eosinophils % 0.3 0.0 Basophils % 0.2 0.0 Nucleated Red Blood Cells % 0.0 0.0 Immature Granulocytes # 0.030 0.040 H Neutrophils # 6.3 5.0 Lymphocytes # 0.2 L 0.2 L Monocytes # 0.1 L 0.3 Eosinophils # 0.0 0.0 Basophils # 0.0 0.0 Nucleated Red Blood Cells # 0.0 0.0 Prothrombin Time 12.3 Prothrombin Time Ratio 1.0 INR International Normalized Ratio 0.90 Activated Partial Thromboplast Time 37.5 H Sodium Level 137 141 Potassium Level 4.0 4.5 Chloride Level 89 L 86 L Carbon Dioxide Level 35 H 36 H Anion Gap 13 19 H Blood Urea Nitrogen 53 H 76 H Creatinine 8.29 H 9.39 H Est Glomerular Filtrat Rate mL/min Glucose Level 124 124 Calcium Level 9.5 10.3 H Total Bilirubin 0.1 L 0.0 L Direct Bilirubin 0.00 0.00 Indirect Bilirubin 0.1 0.0 Aspartate Amino Transf (AST/SGOT) 13 L 14 L Alanine Aminotransferase (ALT/SGPT) 9 L 16 Alkaline Phosphatase 77 58 Troponin I 0.015 Total Protein 8.3 H 7.2 # Albumin 4.6 4.4 Globulin 3.70 H 2.80 Albumin/Globulin Ratio 1.24 1.57 Hemoglobin A1c 5.5 Subjective 24 Hr Interval Summary Free Text/Dictation Complaints of nausea, some dysphagia and heartburn over past months. Lots of TUMS. some benefit Anxiety and tremors as well Exam/Review of Systems Vital Signs Vitals Vital Signs Date Temp Pulse Resp B/P (MAP) Pulse Ox O2 O2 Flow FiO2 Time Delivery Rate 05/12/18 67 20 97 Nasal 2.0 13:24 Cannula 05/12/18 98.0 98/53 (68) 11:30 Intake and Output 05/11/18 05/11/18 05/12/18 1515:00 23:00 07:00 IntakeIntake Total 300 ml OutputOutput Total 450 ml BalanceBalance -150 ml Exam Constitutional: alert, oriented, well developed Psych: no complaints, nl mood/affect Head: normocephalic, atraumatic Eyes: nl conjunctiva, EOMI, nl lids, nl sclera, PERRL ENMT: nl external ears & nose, nl lips & teeth, nl nasal mucosa & septum Neck: supple, non-tender Respiratory: clear to auscultation, normal air movement Cardiovascular: regular rate and rhythm, nl pulses Gastrointestinal: soft, nl liver, spleen, non-tender Musculoskeletal: nl extremities to inspection, nl gait and stance Extremities: normal pulses 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, nl mental status, nl speech, nl strength Skin: nl turgor; No rash or lesions Lymph: nl lymph nodes Medications Medications Current Medications IV Flush (NS 3 ml) 3 ml PER PROTOCOL IV ; Start 05/11/18 at 19:00 Acetaminophen/ Hydrocodone Bitart ([place] (5/325)) 1 tab Q6H PRN PO MODERATE PAIN LEVEL 4-6; Start 05/11/18 at 19:00 Heparin Sodium (Porcine) (Heparin (5000 Units/1ml)) 5,000 unit Q12 SC Last administered on 05/12/18 09:49; Admin Dose 5,000 UNIT; Start 05/11/18 at 21:00 Allopurinol (Zyloprim) 100 mg DAILY PO Last administered on 05/12/18 09:20; Admin Dose 100 MG; Start 05/12/18 at 09:00 Dipyridamole/ Aspirin (Aggrenox) 1 cap BID PO Last administered on 05/12/18 09:52; Admin Dose 1 CAP; Start 05/11/18 at 21:00 Clonazepam (Klonopin) 1 mg BID PRN PO ANXIETY Last administered on 05/12/18 04:27; Admin Dose 1 MG; Start 05/11/18 at 19:00 Febuxostat (Uloric) 40 mg DAILY PO Last administered on 05/12/18 09:20; Admin Dose 40 MG; Start 05/12/18 at 09:00 Folic Acid (Folic Acid) 1 mg DAILY PO Last administered on 05/12/18 09:20; Admin Dose 1 MG; Start 05/12/18 at 09:00 Levothyroxine Sodium (Synthroid) 25 mcg BEFORE BREAKFAST PO Last administered on 05/12/18 06:28; Admin Dose 25 MCG; Start 05/12/18 at 07:00 Montelukast Sodium (Singulair) 10 mg QHS PO Last administered on 05/11/18 21:25; Admin Dose 10 MG; Start 05/11/18 at 21:00 Sevelamer Carbonate (Renvela) 0.8 gm WITH MEALS PO Last administered on 05/12/18 11:31; Admin Dose 0.8 GM; Start 05/12/18 at 07:55 Albuterol/ Ipratropium (Duoneb) 3 ml Q6H RESP THERAPY HHN Last administered on 05/12/18 13:23; Admin Dose 3 ML; Start 05/11/18 at 20:00 Prednisone (Prednisone) 40 mg DAILY PO Last administered on 05/12/18 09:20; Admin Dose 40 MG; Start 05/12/18 at 09:00 Ondansetron HCl (Zofran Inj) 4 mg Q6H PRN IV NAUSEA AND/OR VOMITING Last admin istered on 05/12/18at 11:31; Admin Dose 4 MG; Start 05/12/18 at 11:30 JENELLE SIMPSON MD May 12, 2018 13:44
[2018-05-12] MEDS: MONTELUKAST 10 MG TAB PO SCH (20:41)
[2018-05-13] VITALS (14 sets, daily range): BP systolic 102–144; BP diastolic 55–72; PULSE 68–102; RESP 18–38
[2018-05-13] MEDS: ALBUTEROL/IPRATROPIUM (NEB) 3 ML AMP HHN SCH ×2 (01:18→07:41)
[2018-05-13] MEDS: LEVOTHYROXINE 25 MCG TAB PO SCH (05:59)
[2018-05-13] MEDS ORDERED: PANTOPRAZOLE (EC) 40 MG TAB PO SCH (06:00)
[2018-05-13] MEDS: SEVELAMER CARBONATE 0.8 GM PKT PO SCH ×3 (07:55→17:26)
[2018-05-13] MEDS: DIPYRIDAMOLE/ASPIRIN (SR) CAP PO SCH ×2 (08:12→20:05)
[2018-05-13] MEDS: predniSONE 20 MG TAB PO SCH (08:12)
[2018-05-13] MEDS: FOLIC ACID 1 MG TAB PO SCH (08:12)
[2018-05-13] MEDS: FEBUXOSTAT 40 MG TABLET PO SCH (08:12)
[2018-05-13] MEDS: ALLOPURINOL 100 MG TAB PO SCH (08:12)
--- NOTE | 2018-05-13 08:21 | PN ---
DATE: 05/13/2018 SUBJECTIVE: The patient continues to have cough and is pending EGD this morning. The patient also c ontinues to have episodes of agitation. No other events noted. OBJECTIVE: VITAL SIGNS: Blood pressure is 141/71, respirations 19, pulse 68, temperature 97.7. HEENT: Head is normocephalic. NECK: Supple. HEART: Regular rate. LUNGS: Show diminished breath sounds at the base. ABDOMEN: Soft, nontender to palpation without rebound or guarding. EXTREMITIES: Negative for clubbing, cyanosis, no edema. DERMATOLOGIC: No rashes. MUSCULOSKELETAL: No joint effusion. NEUROLOGIC: No change in exam. MEDICATIONS: The patient's medications have been reviewed. LABORATORY DATA: From 05/12/18 has been reviewed. Laboratory data from 05/13/2018 is pending. ASSESSMENT AND PLAN: 1. End-stage renal disease. The patient is on Friday, Friday, Friday. Currently, off schedule. The patient had hemodialysis yesterday, tolerated well. Plan is for dialysis tomorrow. 2. Anemia. Continue to monitor hemoglobin and hematocrit levels. We will continue Epogen as needed . 3. Mineral bone disorder. We will check calcium and phosphorus, vitamin D levels. We will continue phosphate binders, vitamin D analogs as needed. 4. Hypertension. Continue current blood pressure regimen. Continue ultrafiltration dialysis. 5. Nausea, vomiting, epigastric pain. Continue proton pump inhibitor. The patient is pending EGD. 6. Chronic obstructive pulmonary disease exacerbation. Continue medical management. Continue nebul izers. 7. Urinary retention. Continue to monitor. Consider discontinuing Caraballo catheter. 8. History of gout. Continue allopurinol. 9. Anxiety disorder. Continue p.r.n. Ativan. Dictated By: KITA ALVAREZ DO NR/NTS Conf#: [id number] DID#: [id number] CC: JENELLE SIMPSON MD; SANKET SOLIMAN DO;*EndCC*
[2018-05-13] MEDS: clonAZEPAM 0.5 MG TAB PO PRN ×2 (10:18→22:06)
[2018-05-13] MEDS ORDERED: ALBUTEROL/IPRATROPIUM (NEB) 3 ML AMP HHN PRN (11:00)
--- NOTE | 2018-05-13 13:48 | PREAC ---
Date/Time of Note Date/Time of Note DATE: 05/13/18 TIME: 13:44 Anesthesia Eval and Record Evaluation Time Pre-Procedure Interview DATE: 05/13/18 TIME: 13:44 Age 72 Sex male NPO: 8 hrs Preoperative diagnosis epigastric pain Planned procedure egd Past Medical History Past Medical History: Includes Pulm: COPD Musculoskeletal: Other (gout ) Renal: ESRD on dialysis Heme: Anemia Surgery & Anesthesia Issues No known issue Meds Anticoagulation: No Beta Kaitlynn within 24 hr: No Reason Beta Kaitlynn not given: Pt. not on B-Kaitlynn Reported Medications Vilazodone Hcl (Viibryd) 40 Mg Tablet, 40 MG PO DAILY, TAB 05/11/18 Aspirin-Dipyridamole* (Aggrenox*) 25-200 Mg Cpmp.12hr, 1 CAP PO BID, CAP 05/11/18 Fenofibrate, Micronized* (Fenofibrate*) 160 Mg Tablet, 160 MG PO DAILY, TAB 05/11/18 Ropinirole Hcl* (Ropinirole Hcl*) 0.25 Mg Tablet, 0.25 MG PO HS, TAB 05/11/18 Dexlansoprazole (Dexilant) 60 Mg Jese., 60 MG PO DAILY, #30 CAP 05/11/18 Sevelamer Carbonate* (Renvela*) 800 Mg Tablet, 0.8 GM PO WITH MEALS, TAB 05/11/18 Montelukast Sodium* (Montelukast Sodium*) 10 Mg Tablet, 10 MG PO QHS, #30 TAB 05/11/18 Folic Acid* (Folic Acid*) 1 Mg Tablet, 1 MG PO DAILY, TAB 05/11/18 Levothyroxine Sodium* (Levothyroxine Sodium*) 25 Mcg Tablet, 25 MCG PO BEFORE BREAKFAST, #30 TAB 05/11/18 Clonazepam* (Clonazepam*) 1 Mg Tablet, 1 MG PO BID PRN for ANXIETY, TAB 05/11/18 Allopurinol* (Allopurinol*) 100 Mg Tablet, 100 MG PO DAILY, TAB 05/11/18 Febuxostat* (Uloric*) 40 Mg Tablet, 40 MG PO DAILY, TAB 05/11/18 Discontinued Reported Medications Ropinirole Hcl* (Ropinirole Hcl*) 0.5 Mg Tablet, 0.5 MG PO HS, TAB 05/11/18 Trazodone Hcl* (Trazodone Hcl*) 50 Mg Tablet, 50 MG PO QHS, #30 TAB 05/28/17 Temazepam* (Temazepam*) 15 Mg Capsule, 15 MG PO HS PRN for INSOMNIA, CAP 05/28/17 Sevelamer Carbonate* (Renvela*) 800 Mg Tablet, 1.6 GM PO WITH MEALS, TAB 05/28/17 Montelukast Sodium* (Montelukast Sodium*) 10 Mg Tablet, 10 MG PO QHS, #30 TAB 05/28/17 Levothyroxine Sodium* (Levothyroxine Sodium*) 25 Mcg Tablet, 25 MCG PO BEFORE BREAKFAST, #30 TAB 05/28/17 Isosorbide Mononitrate* (Isosorbide Mononitrate*) 30 Mg Tab.er.24h, 30 MG PO DAILY, TAB 05/28/17 Folic Acid* (Folic Acid*) 1 Mg Tablet, 1 MG PO DAILY, TAB 05/28/17 Dutasteride* (Avodart*) 0.5 Mg Capsule, 0.5 MG PO DAILY, CAP 05/28/17 Clonazepam* (Clonazepam*) 0.5 Mg Tablet, 0.5 MG PO BID PRN for ANXIETY, TAB 05/28/17 Donepezil* (Aricept*) 10 Mg Tablet, 10 MG PO QHS, TAB 05/28/17 Allopurinol* (Allopurinol*) 100 Mg Tablet, 100 MG PO DAILY, TAB 05/28/17 Alfuzosin Hcl* (Alfuzosin Hcl*) 10 Mg Tab.er.24h, 10 MG PO DAILY, #30 TAB.SA 05/28/17 Aspirin-Dipyridamole* (Aggrenox*) 25-200 Mg Cpmp.12hr, 1 CAP PO DAILY, CAP 05/28/17 Current Medications IV Flush (NS 3 ml) 3 ml PER PROTOCOL IV ; Start 05/11/18 at 19:00 Acetaminophen/ Hydrocodone Bitart ([place] (5/325)) 1 tab Q6H PRN PO MODERATE PAIN LEVEL 4-6 Last administered on 05/13/18at 01:51; Admin Dose 1 TAB; Start 05/11/18 at 19:00 Heparin Sodium (Porcine) (Heparin (5000 Units/1ml)) 5,000 unit Q12 SC Last administered on 1/8/19at 20:43; Admin Dose 5,000 UNIT; Start 05/11/18 at 21:00; Status Hold Allopurinol (Zyloprim) 100 mg DAILY PO Last administered on 05/13/18 08:12; Admin Dose 100 MG; Start 05/12/18 at 09:00 Dipyridamole/ Aspirin (Aggrenox) 1 cap BID PO Last administered on 05/13/18 08:12; Admin Dose 1 CAP; Start 05/11/18 at 21:00 Clonazepam (Klonopin) 1 mg BID PRN PO ANXIETY Last administered on 05/13/18 10:18; Admin Dose 1 MG; Start 05/11/18 at 19:00 Febuxostat (Uloric) 40 mg DAILY PO Last administered on 05/13/18 08:12; Admin Dose 40 MG; Start 05/12/18 at 09:00 Folic Acid (Folic Acid) 1 mg DAILY PO Last administered on 05/13/18 08:12; Admin Dose 1 MG; Start 05/12/18 at 09:00 Levothyroxine Sodium (Synthroid) 25 mcg BEFORE BREAKFAST PO Last administered on 05/13/18 05:59; Admin Dose 25 MCG; Start 05/12/18 at 07:00 Montelukast Sodium (Singulair) 10 mg QHS PO Last administered on 05/12/18 20:41; Admin Dose 10 MG; Start 05/11/18 at 21:00 Sevelamer Carbonate (Renvela) 0.8 gm WITH MEALS PO Last administered on 05/12/18 17:07; Admin Dose 0.8 GM; Start 05/12/18 at 07:55 Prednisone (Prednisone) 40 mg DAILY PO Last administered on 05/13/18 08:12; Admin Dose 40 MG; Start 05/12/18 at 09:00 Ondansetron HCl (Zofran Inj) 4 mg Q6H PRN IV NAUSEA AND/OR VOMITING Last administered on 05/12/18 11:31; Admin Dose 4 MG; Start 05/12/18 at 11:30 Pantoprazole (Protonix Tab) 40 mg DAILY@06 PO Last administered on 05/13/18 05:59; Admin Dose 40 MG; Start 05/13/18 at 06:00 Epoetin Jamar (Epogen (Esrd)) 8,000 units MoWeFr@17 SC ; Start 05/13/18 at 17:00 Albuterol/ Ipratropium (Duoneb) 3 ml Q6H RESP THERAPY PRN HHN dypsnea; Start 05/13/18 at 11:00 Meds reviewed: Yes Allergies Coded Allergies: No Known Allergy (Unverified , 05/11/18) Allergies Reviewed: Yes Labs/Studies Labs Reviewed: Reviewed by anesthesiologist Result Diagram: 05/13/18 0703 05/13/18 0703 Laboratory Tests 05/13/18 07:03 test: N/A Pre-procedure Exam Last vitals Vital Signs Date Temp Pulse Resp B/P (MAP) Pulse Ox O2 O2 Flow FiO2 Time Delivery Rate 05/13/18 92 12:10 05/13/18 98.0 19 129/59 100 11:04 (82) 05/13/18 Nasal 2.0 07:51 Cannula Airway: Adequate mouth opening, Adequate thyromental dist Mallampati: Mallampati III Teeth: Abnormal (none) Lung: Normal Heart: Normal ASA Physical Status ASA physical status: 4 Emergency: None Pre-operative Attestations Prior to commencing anesthesia and surgery, the patient was re-evaluated, there was verification of: *The patient's identity *The results of appropriate recent lab work and preoperative vital signs *The above evaluation not changing prior to induction *Anesthetic plan, risk benefits, alternative and complications discussed with patient/family; questions answered; patient/family understands, accepts and wishes to proceed. KAROLINA IZQUIERDO DO May 13, 2018 13:48
[2018-05-13] MEDS ORDERED: ETOMIDATE 20 MG INJ ONE (13:52)
[2018-05-13] MEDS ORDERED: LIDOCAINE 2% (SDV) 5 ML INJ ONE (13:52)
[2018-05-13] MEDS ORDERED: PROPOFOL 20 ML ONE (13:52)
[2018-05-13] MEDS ORDERED: MIDAZOLAM 1 MG/ML 2 ML INJ ONE (13:52)
--- NOTE | 2018-05-13 14:41 | PAC ---
Date/Time of Note Date/Time of Note DATE: 05/13/18 TIME: 14:41 Post-Anesthesia Notes Post-Anesthesia Note Last documented vital signs Vital Signs Date Temp Pulse Resp B/P (MAP) Pulse Ox O2 O2 Flow FiO2 Time Delivery Rate 05/13/18 98 70 15 135/62 100 1441 05/13/18 98.0 19 129/59 100 11:04 (82) 05/13/18 Nasal 2.0 07:51 Cannula Activity: WNL Respiratory function: WNL Cardiovascular function: WNL Mental status: Baseline Pain reasonably controlled: Yes Hydration appropriate: Yes Nausea/Vomiting absent: Yes KAROLINA IZQUIERDO DO May 13, 2018 14:41
--- NOTE | 2018-05-13 14:42 | PN ---
Date/Time of Note Date/Time of Note DATE: 05/13/18 TIME: 14:42 Assessment/Plan VTE Prophylaxis SCD applied (from Nsg): Yes Pharmacological prophylaxis: heparin Lines/Catheters IV Catheter Type (from Nrsg): Saline Lock Urinary Cath still in place: No Assessment/Plan Hospital Course 72-year-old male with end-stage renal disease who presents with shortness of breath for the last couple weeks as well as with seems like urinary retention Shortness of breath: -Given known emphysema is suspected to this though he does not have any audible wheezing. We will still treat him with bronchodilators. This is not from overloaded his x-ray is clear. Echo nnoraml. We will check a VQ scan as well to exclude PE per Dr Santacruz - Swapnil standing nebs as causing agitation, breathing normalized Dyspepsia and nausea: - EGD per GI given onc risk factors Anxiety; - Continue chronic benzos, has been on klonipin daily for many years he says ESRD: - HD per renal Suprapubic tenderness/fullness concerning for retention: - swapnil patel Gout: - Allopurinol Discharge pending workup Result Diagram: 05/13/18 0703 05/13/18 0703 Results 24hrs Laboratory Tests Test 05/12/18 17:16 05/13/18 07:03 Hepatitis B Surface Antigen NEGATIVE White Blood Count 6.8 # Red Blood Count 3.39 L Hemoglobin 10.4 L Hematocrit 33.9 L Mean Corpuscular Volume 100.0 Mean Corpuscular Hemoglobin 30.7 Mean Corpuscular Hemoglobin Concent 30.7 L Red Cell Distribution Width 14.5 Platelet Count 245 Mean Platelet Volume 9.9 Immature Granulocytes % 0.600 H Neutrophils % 80.7 H Lymphocytes % 7.8 L Monocytes % 10.7 Eosinophils % 0.1 Basophils % 0.1 Nucleated Red Blood Cells % 0.0 Immature Granulocytes # 0.040 H Neutrophils # 5.5 Lymphocytes # 0.5 L Monocytes # 0.7 Eosinophils # 0.0 Basophils # 0.0 Nucleated Red Blood Cells # 0.0 Sodium Level 140 Potassium Level 4.3 Chloride Level 92 L Carbon Dioxide Level 35 H Anion Gap 13 Blood Urea Nitrogen 66 H Creatinine 8.36 H Est Glomerular Filtrat Rate mL/min Glucose Level 85 Calcium Level 10.0 Phosphorus Level 6.7 H Magnesium Level 2.5 Subjective 24 Hr Interval Summary Free Text/Dictation Breathing stable Awaiting EGD today Exam/Review of Systems Vital Signs Vitals Vital Signs Date Temp Pulse Resp B/P (MAP) Pulse Ox O2 O2 Flow FiO2 Time Delivery Rate 05/13/18 2.0 14:27 05/13/18 97.5 92 24 136/64 98 13:53 (88) 05/13/18 Nasal 13:45 Cannula Intake and Output 05/12/18 05/12/18 05/13/18 1515:00 23:00 07:00 IntakeIntake Total 900 ml 200 ml OutputOutput Total 900 ml 5848 ml 0 ml BalanceBalance -900 ml -4948 ml 200 ml Medications Medications Current Medications IV Flush (NS 3 ml) 3 ml PER PROTOCOL IV ; Start 05/11/18 at 19:00 Acetaminophen/ Hydrocodone Bitart (Berthoud (5/325)) 1 tab Q6H PRN PO MODERATE PAIN LEVEL 4-6 Last administered on 05/13/18 01:51; Admin Dose 1 TAB; Start 05/11/18 at 19:00 Heparin Sodium (Porcine) (Heparin (5000 Units/1ml)) 5,000 unit Q12 SC Last administered on 05/12/18at 20:43; Admin Dose 5,000 UNIT; Start 05/11/18 at 21:00; Status Hold Allopurinol (Zyloprim) 100 mg DAILY PO Last administered on 05/13/18 08:12; Admin Dose 100 MG; Start 05/12/18 at 09:00 Dipyridamole/ Aspirin (Aggrenox) 1 cap BID PO Last administered on 05/13/18 08:12; Admin Dose 1 CAP; Start 05/11/18 at 21:00 Clonazepam (Klonopin) 1 mg BID PRN PO ANXIETY Last administered on 05/13/18 10:18; Admin Dose 1 MG; Start 05/11/18 at 19:00 Febuxostat (Uloric) 40 mg DAILY PO Last administered on 05/13/18 08:12; Admin Dose 40 MG; Start 05/12/18 at 09:00 Folic Acid (Folic Acid) 1 mg DAILY PO Last administered on 05/13/18 08:12; Admin Dose 1 MG; Start 05/12/18 at 09:00 Levothyroxine Sodium (Synthroid) 25 mcg BEFORE BREAKFAST PO Last administered on 05/13/18 05:59; Admin Dose 25 MCG; Start 05/12/18 at 07:00 Montelukast Sodium (Singulair) 10 mg QHS PO Last administered on 05/12/18 20:41; Admin Dose 10 MG; Start 05/11/18 at 21:00 Sevelamer Carbonate (Renvela) 0.8 gm WITH MEALS PO Last administered on 05/12/18 17:07; Admin Dose 0.8 GM; Start 05/12/18 at 07:55 Prednisone (Prednisone) 40 mg DAILY PO Last administered on 05/13/18 08:12; Admin Dose 40 MG; Start 05/12/18 at 09:00 Ondansetron HCl (Zofran Inj) 4 mg Q6H PRN IV NAUSEA AND/OR VOMITING Last administered on 05/12/18 11:31; Admin Dose 4 MG; Start 05/12/18 at 11:30 Epoetin Jamar (Epogen (Esrd)) 8,000 units MoWeFr@17 SC ; Start 05/13/18 at 17:00 Albuterol/ Ipratropium (Duoneb) 3 ml Q6H RESP THERAPY PRN HHN dypsnea; Start 05/13/18 at 11:00 Pantoprazole (Protonix Tab) 40 mg BID PO ; Start 05/13/18 at 21:00; Status JENELLE HOLT MD May 13, 2018 14:42
[2018-05-13] MEDS ORDERED: EPOETIN 4000 UNITS/1 ML INJ (ESRD) SC SCH (17:00)
[2018-05-13] MEDS: PANTOPRAZOLE (EC) 40 MG TAB PO SCH (17:27)
[2018-05-13] MEDS: MONTELUKAST 10 MG TAB PO SCH (20:05)
[2018-05-13] MEDS: HEPARIN 5,000 UNIT/1 ML VIAL SC SCH (20:15)
[2018-05-14] VITALS (22 sets, daily range): BP systolic 111–148; BP diastolic 52–75; PULSE 62–95; RESP 17–20
[2018-05-14] MEDS: ONDANSETRON 4 MG INJ IV PRN (02:04)
[2018-05-14] MEDS: LEVOTHYROXINE 25 MCG TAB PO SCH (05:02)
[2018-05-14] MEDS: PANTOPRAZOLE (EC) 40 MG TAB PO SCH (05:02)
[2018-05-14] MEDS: FEBUXOSTAT 40 MG TABLET PO SCH (08:18)
[2018-05-14] MEDS: SEVELAMER CARBONATE 0.8 GM PKT PO SCH ×2 (08:18→11:50)
[2018-05-14] MEDS: FOLIC ACID 1 MG TAB PO SCH (08:18)
[2018-05-14] MEDS: predniSONE 20 MG TAB PO SCH (08:18)
[2018-05-14] MEDS: DIPYRIDAMOLE/ASPIRIN (SR) CAP PO SCH (08:18)
[2018-05-14] MEDS: ALLOPURINOL 100 MG TAB PO SCH (08:18)
[2018-05-14] MEDS: HEPARIN 5,000 UNIT/1 ML VIAL SC SCH (08:24)
--- NOTE | 2018-05-14 08:32 | PN ---
DATE: 05/14/2018 SUBJECTIVE: The patient's esophagogastroduodenoscopy performed yesterday, found evidence of gastriti s. Overnight, the patient has been anxious. No other acute events noted. OBJECTIVE: VITAL SIGNS: Blood pressure is 148/64, respirations 20, pulse 69, temperature 98.0. HEENT: Head is normocephalic. NECK: Supple. HEART: Regular rate. LUNGS: Show diminished breath sounds at the base. ABDOMEN: Soft, nontender to palpation without rebound or guarding. EXTREMITIES: Negative for clubbing, cyanosis, no edema. DERMATOLOGIC: No rashes. MUSCULOSKELETAL: No joint effusion. NEUROLOGIC: No change in exam. MEDICATIONS: Reviewed. LABORATORY DATA: Reviewed. There are no new labs for 05/14/2018. ASSESSMENT AND PLAN: 1. End-stage renal disease. The patient is on dialysis Friday, Friday, and Friday. Currently, o ff schedule. Plan is for hemodialysis today. We will dialyze for 3 hours 3k bath, calcium 2.5. 2. Anemia. Continue to monitor hemoglobin and hematocrit levels. We will continue Epogen as needed . 3. Mineral bone disorder, monitor calcium and phosphorus levels. Continue phosphate binders, vitami n D analogs. 4. Hypertension. Continue current blood pressure regimen. Continue ultrafiltration dialysis. 5. Peptic ulcer disease/gastroesophageal reflux disease. The patient is status post esophagogastrod uodenoscopy with evidence of gastritis. Continue proton pump inhibitor. 6. Chronic obstructive pulmonary disease exacerbation, improving. Continue medical management. Con tinue taper down steroids. 7. History of gout. Continue allopurinol. 8. Anxiety disorder. Continue antiemetics and clonazepam. 9. Hypothyroidism. Continue Synthroid. Dictated By: KITA ALVAREZ DO NR/NTS Conf#: [id number] DID#: [id number] CC: SANKET SOLIMAN DO; JENELLE SIMPSON MD;*End*
[2018-05-14] MEDS: clonAZEPAM 0.5 MG TAB PO PRN (09:29)
[2018-05-14] MEDS ORDERED: ALBU90AE INHALATION (10:20)
[2018-05-14] MEDS ORDERED: BUDE6.9H INHALATION (10:20)
[2018-05-14] MEDS ORDERED: clonAZEPAM 0.5 MG TAB PO ONE (11:30)
[2018-05-14] MEDS ORDERED: PANT40TA4 PO (12:24)
--- NOTE | 2018-05-14 12:28 | PDOCDIS ---
Discharge Instructions DIAGNOSIS Discharge Diagnosis Emphysema CONDITION [id number] Patient Condition: [id number] Stable FOLLOW UP/APPOINTMENTS Follow-up Plan It is very important to see your doctor to manage your emphysema. You will have this condition forever and you need to use inhalers everyday You also have gastritis for which I have prescribed you an antiacid medication. Call the office of Dr Sesay to schedule a follow up appointment. His office number is Continue dialysis as prescribed JENELLE SIMPSON MD May 14, 2018 12:28
--- NOTE | 2018-05-14 12:49 | DS ---
Date/Time of Note Date/Time of Note DATE: 05/14/18 TIME: 12:47 Discharge Summary Admission/Discharge Info Admit Date/Time May 11, 2018 at 18:17 Discharge Date/Time Discharge Diagnosis Emphysema Patient Condition: Stable Hx of Present Illness This 72-year-old male with a history of end-stage renal disease, and emphysema who presents with shortness of breath. Patient describes shortness of breath for the last couple weeks. Has generally been tolerant to this and did not seek medical care until today. Went to an outside ER at [facility] where they gave him prednisone and nebulizer treatments. They then sent him to his normally scheduled dialysis treatment. There he complained of shortness of breath though treating infrastructure director Dr. Santacruz noted clear lungs at that time. Given his complaint however he was sent to the emergency room. Here he again he has been given bronchodilators. When I saw him he feels better. His daughter is at the bedside says that he has been having a hard time even walking across the room because he gets winded. He also complains of pain in his lower pelvis feels like he is retaining urine. He does have prominent tenderness in the suprapubic region Hospital Course 72-year-old male with end-stage renal disease who presents with shortness of breath for the last couple weeks as well as dysphagia/nausea He was treated with systemic steroids and bronchodilators for emphysema. respiratory status was stable. He was counseled on lifelong nature of COPD and need for daily inhaler adherence. He was prescribed symibcort and albuterol PRN at discharge He complained of priandial nausea and dypahgia. He underwent EGD showing esophogitis. He was prescribed PPI BID and encouraged to follow up with Dr Sesay He was continued on HD for ESRD Home Meds Reported Medications Vilazodone Hcl (Viibryd) 40 Mg Tablet, 40 MG PO DAILY, TAB 05/11/18 Aspirin-Dipyridamole* (Aggrenox*) 25-200 Mg Cpmp.12hr, 1 CAP PO BID, CAP 05/11/18 Fenofibrate, Micronized* (Fenofibrate*) 160 Mg Tablet, 160 MG PO DAILY, TAB 05/11/18 Ropinirole Hcl* (Ropinirole Hcl*) 0.25 Mg Tablet, 0.25 MG PO HS, TAB 05/11/18 Dexlansoprazole (Dexilant) 60 Mg , 60 MG PO DAILY, #30 CAP 05/11/18 Sevelamer Carbonate* (Renvela*) 800 Mg Tablet, 0.8 GM PO WITH MEALS, TAB 05/11/18 Montelukast Sodium* (Montelukast Sodium*) 10 Mg Tablet, 10 MG PO QHS, #30 TAB 05/11/18 Folic Acid* (Folic Acid*) 1 Mg Tablet, 1 MG PO DAILY, TAB 05/11/18 Levothyroxine Sodium* (Levothyroxine Sodium*) 25 Mcg Tablet, 25 MCG PO BEFORE BREAKFAST, #30 TAB 05/11/18 Clonazepam* (Clonazepam*) 1 Mg Tablet, 1 MG PO BID PRN for ANXIETY, TAB 05/11/18 Allopurinol* (Allopurinol*) 100 Mg Tablet, 100 MG PO DAILY, TAB 05/11/18 Febuxostat* (Uloric*) 40 Mg Tablet, 40 MG PO DAILY, TAB 05/11/18 Discontinued Reported Medications Ropinirole Hcl* (Ropinirole Hcl*) 0.5 Mg Tablet, 0.5 MG PO HS, TAB 05/11/18 Trazodone Hcl* (Trazodone Hcl*) 50 Mg Tablet, 50 MG PO QHS, #30 TAB 05/28/17 Temazepam* (Temazepam*) 15 Mg Capsule, 15 MG PO HS PRN for INSOMNIA, CAP 05/28/17 Sevelamer Carbonate* (Renvela*) 800 Mg Tablet, 1.6 GM PO WITH MEALS, TAB 05/28/17 Montelukast Sodium* (Montelukast Sodium*) 10 Mg Tablet, 10 MG PO QHS, #30 TAB 05/28/17 Levothyroxine Sodium* (Levothyroxine Sodium*) 25 Mcg Tablet, 25 MCG PO BEFORE BREAKFAST, #30 TAB 05/28/17 Isosorbide Mononitrate* (Isosorbide Mononitrate*) 30 Mg Tab.er.24h, 30 MG PO DAILY, TAB 05/28/17 Folic Acid* (Folic Acid*) 1 Mg Tablet, 1 MG PO DAILY, TAB 05/28/17 Dutasteride* (Avodart*) 0.5 Mg Capsule, 0.5 MG PO DAILY, CAP 05/28/17 Clonazepam* (Clonazepam*) 0.5 Mg Tablet, 0.5 MG PO BID PRN for ANXIETY, TAB 05/28/17 Donepezil* (Aricept*) 10 Mg Tablet, 10 MG PO QHS, TAB 05/28/17 Allopurinol* (Allopurinol*) 100 Mg Tablet, 100 MG PO DAILY, TAB 05/28/17 Alfuzosin Hcl* (Alfuzosin Hcl*) 10 Mg Tab.er.24h, 10 MG PO DAILY, #30 TAB.SA 05/28/17 Aspirin-Dipyridamole* (Aggrenox*) 25-200 Mg Cpmp.12hr, 1 CAP PO DAILY, CAP 05/28/17 Follow-up Plan It is very important to see your doctor to manage your emphysema. You will have this condition forever and you need to use inhalers everyday You also have gastritis for which I have prescribed you an antiacid medication. Call the office of Dr Sesay to schedule a follow up appointment. His office number is Continue dialysis as prescribed Primary Care Provider Not On Staff Doctor JENELLE SIMPSON MD May 14, 2018 12:49
[2018-06-01] MEDS ORDERED: DOCU-159 PO (16:55)
[2018-06-01] MEDS ORDERED: TRAZ150T65 PO (16:55)
[2018-06-01] MEDS ORDERED: METO-448 PO (16:55)
[2018-06-01] MEDS ORDERED: BUDE6HFA INHALATION (16:55)
[2018-06-01] MEDS ORDERED: ROPI1TAB PO (16:55)
[2018-06-01] MEDS ORDERED: ATOR10TA65 PO (16:55)
[2018-06-01] MEDS ORDERED: TAMS-14 PO (16:55)
[2018-06-02] MEDS ORDERED: CLON1TAB13 PO (16:36)
[2018-06-04] MEDS ORDERED: PRED20TA PO (12:34)
[2018-06-04] MEDS ORDERED: LEVO250T9 PO (12:34)
[2018-06-12] MEDS ORDERED: MIRT15TA5 PO (10:35)
[2018-06-12] MEDS ORDERED: LEVO500T48 PO (10:35)
[2018-06-12] MEDS ORDERED: CLON1TAB13 PO (10:35)
== END 2018-05-14 16:08 | disposition home or self-care (01) ==
LOC: E/R 15:07 → TEL 18:17
PROVIDERS: ADMIT Internal Medicine; ATTEND Internal Medicine
DX: J43.9 Emphysema, unspecified (principal); I12.0 Hypertensive chronic kidney disease with stage 5 chronic kidney disease or end stage renal disease; N18.6 End stage renal disease; Z99.2 Dependence on renal dialysis; D64.9 Anemia, unspecified; M89.9 Disorder of bone, unspecified; R33.9 Retention of urine, unspecified; M10.9 Gout, unspecified; E03.9 Hypothyroidism, unspecified; F41.9 Anxiety disorder, unspecified
CPT/HCPCS: 36415; 71045; 76705; 78582; 80048; 80053; 83036; 83735; 84100; 84484; 85025; 85610; 85730; 87340; 88305; 90935; 93005; 93306; 94640; 94644; 94664; 96374; 96375; 99285; A9540; G0378; J1644; J2060; J2250; J2405; J2930; J7512; 88312; G0257; Q4081

== ENCOUNTER 2018-06-24 14:41 | Inpatient (IN) | payer MEDICARE, OTHER ==
[~2018-06-24] VITALS: Ht 167.6 cm; Wt 83.8 kg
[~2018-06-24 14:41] MED LIST changes: +ALBU90AE INHALATION; -ALFU10TA2 PO; -ALLO100T PO; +ATOR10TA65 PO; +BUDE6HFA INHALATION; -CLON0.5T14 PO; +CLON1TAB13 PO; +DOCU-159 PO; -DONE10TA7 PO; -DUTA0.5C PO; +FEBU40TA PO; -ISOS30TA67 PO; +LEVO500T48 PO; +METO-448 PO; +MIRT15TA5 PO; +ROPI1TAB PO; +TAMS-14 PO; -TEMA15CA PO; -TRAZ-111 PO
[2018-06-24] MEDS ORDERED: LORAZEPAM 2 MG INJ IV ONE ×3 (15:30→18:30)
[2018-06-24] MEDS ORDERED: ACETAMINOPHEN 325 MG TAB PO PRN (18:00)
[2018-06-24] MEDS ORDERED: ONDANSETRON 4 MG INJ IV PRN (18:00)
[2018-06-24] MEDS ORDERED: ALBUTEROL 0.5% (NEB) 2.5 MG/0.5 ML AMP NEB STA (18:55)
[2018-06-24] MEDS ORDERED: LORAZEPAM 2 MG INJ IM ONE (19:00)
--- NOTE | 2018-06-24 19:01 | ERD ---
ER Documentation Chief Complaint Chief Complaint bib ra from dialysis for sob, and weakness, only finished 45 min of dialysi HPI 72-year-old male with a history of hypertension, COPD, dementia brought in by ambulance from his dialysis center for shortness of breath and generalized weakness. He did not complete dialysis secondary to his symptoms. Patient is denying any chest pain but he seems very confused and is very agitated. He is unable to answer my questions. ROS Unable to obtain due to mental status Medications Home Meds Active Scripts Mirtazapine* (Mirtazapine*) 15 Mg Tablet, 15 MG PO HS for 30 Days, #60 TAB take 15mg for 1 week and increase to 30mg at night Prov:HANK LUO MD 06/12/18 Levofloxacin* (Levaquin*) 500 Mg Tablet, 500 MG PO Q48H for 1 Day, #1 TAB take on 06/14 Prov:HANK LUO MD 06/12/18 Clonazepam* (Clonazepam*) 1 Mg Tablet, 1 MG PO BID PRN for ANXIETY for 10 Days, #20 TAB Prov:HANK LUO MD 06/12/18 Albuterol Sulfate (Proair Respiclick) 90 Mcg Aer.pow.ba, 2 PUFFS INHALATION Q6 PRN for SHORTNESS OF BREATH, #1 BOTTLE 5 Refills Prov:JENELLE SIMPSON MD 05/14/18 Reported Medications Docusate Sodium* (Docusate Sodium*) 100 Mg Capsule, 100 MG PO DAILY, #30 CAP 06/01/18 Tamsulosin Hcl* (Flomax*) 0.4 Mg Cap.er.24h, 0.4 MG PO HS, CAP 06/01/18 Ropinirole Hcl* (Ropinirole Hcl*) 1 Mg Tablet, 1 MG PO HS, TAB 06/01/18 Metoprolol Tartrate* (Lopressor*) 25 Mg Tab, 12.5 MG PO BID, #60 TAB 06/01/18 Budesonide-Formoterol Fumarate* (Symbicort*) 160-4.5 Hfa.aer.ad, 2 PUFF INHALATION BID, #1 EACH 06/01/18 Atorvastatin Calcium (Atorvastatin Calcium) 10 Mg Tablet, 10 MG PO QHS, #30 TAB 06/01/18 Aspirin-Dipyridamole* (Aggrenox*) 25-200 Mg Cpmp.12hr, 1 CAP PO BID, CAP 1/7/19 Sevelamer Carbonate* (Renvela*) 800 Mg Tablet, 1600 MG PO WITH MEALS, TAB 05/11/18 Montelukast Sodium* (Montelukast Sodium*) 10 Mg Tablet, 10 MG PO QHS, #30 TAB 05/11/18 Folic Acid* (Folic Acid*) 1 Mg Tablet, 1 MG PO DAILY, TAB 05/11/18 Levothyroxine Sodium* (Levothyroxine Sodium*) 25 Mcg Tablet, 25 MCG PO BEFORE BREAKFAST, #30 TAB 05/11/18 Febuxostat* (Uloric*) 40 Mg Tablet, 40 MG PO DAILY, TAB 05/11/18 Allergies Allergies: Coded Allergies: No Known Allergy (Unverified , 06/08/18) PMhx/Soc History of Surgery: Yes (Left upper arm AV fistula) Anesthesia Reaction: No Hx Respiratory Disorders: Yes (COPD) Hx Cardiac Disorders: Yes (HTN, high cholesterol) Hx Psychiatric Problems: No Hx Miscellaneous Medical Probl: Yes (ANXIETY, ESRD, ON HD, HTN , COPD , CAD, GOUT , ANEMIA) Hx Alcohol Use: Yes (stopped drinking 4 years ago) Hx Substance Use: No Hx Tobacco Use: No (stopped smoking 4 years ago) Smoking Status: Former smoker FmHx Family History: No diabetes Physical Exam Vitals Vital Signs Date Temp Pulse Resp B/P (MAP) Pulse Ox O2 O2 Flow FiO2 Time Delivery Rate 06/24/18 96 18 138/72 100 BIPAP 17:34 (94) 06/24/18 95 99 25 17:00 06/24/18 Nasal 15:45 Cannula 06/24/18 98.1 100 19 115/65 100 14:50 (82) 06/24/18 98.1 101 19 119/63 100 14:45 (81) Physical Exam Const: Very agitated, restless, trying to climb out of bed Head: Atraumatic Eyes: Normal Conjunctiva ENT: Normal External Ears, Nose and Mouth. Neck: Full range of motion. No meningismus. No JVD Resp: Diminished breath sounds bilaterally with expiratory wheezing Cardio: Regular rate and rhythm, no murmurs Abd: Soft, non tender, non distended. Normal bowel sounds Skin: No petechiae or rashes Back: No midline or flank tenderness Ext: No cyanosis, trace peripheral edema Neur: Awake and alert, normal speech, moving all extremities Psych: Agitated, anxious Result Diagram: 06/24/18 1514 06/24/18 1514 Results 24 hrs Laboratory Tests Test 06/24/18 15:11 06/24/18 15:14 06/24/18 15:29 06/24/18 16:41 Bedside Glucose 140 mg/dL White Blood 6.5 10^3/ul Count Red Blood Count 2.52 10^6/ul Hemoglobin 7.8 g/dl Hematocrit 25.3 % Mean Corpuscular 100.4 fl Volume Mean Corpuscular 31.0 pg Hemoglobin Mean Corpuscular 30.8 g/dl Hemoglobin Monica nt Red Cell 14.8 % Distribution Width Platelet Count 178 10^3/UL Mean Platelet 9.9 fl Volume Immature 0.600 % Granulocytes % Neutrophils % 81.3 % Lymphocytes % 5.6 % Monocytes % 11.3 % Eosinophils % 1.2 % Basophils % 0.0 % Nucleated Red 0.0 /100WBC Blood Cells % Immature 0.040 10^3/ul Granulocytes # Neutrophils # 5.3 10^3/ul Lymphocytes # 0.4 10^3/ul Monocytes # 0.7 10^3/ul Eosinophils # 0.1 10^3/ul Basophils # 0.0 10^3/ul Nucleated Red 0.0 10^3/ul Blood Cells # Prothrombin Time 11.7 Sec Prothrombin Time 0.9 Ratio INR 0.85 International Normalized Ratio Activated 30.9 Sec Partial Thrombop last Time Sodium Level 141 mmol/L Potassium Level 4.1 mmol/L Chloride Level 95 mmol/L Carbon Dioxide 28 mmol/L Level Anion Gap 18 Blood Urea 102 mg/dl Nitrogen Creatinine 10.69 mg/dl Est Glomerular mL/min Filtrat Rate mL/min Glucose Level 138 mg/dl Calcium Level 9.4 mg/dl Troponin I 0.043 ng/ml B-Type 3140 PG/ML Natriuretic Peptide POC Venous 1.2 mmol/L Lactate Blood Gas Blood arterial Specimen Source Arterial Blood 06/24/2018 4:37:5 Date Drawn 6 PM Arterial Blood 7.263 pH (Temp corrected) Arterial Blood 71.6 mmhg pCO2 (Temp correct) Arterial Blood 121.6 mmHG pO2 (Temp corrected) Arterial Blood 31.6 mmol/L HCO3 Arterial Blood 3.6 mmol/L Base Excess Arterial Blood 97.2 mmHG Oxygen Saturatio n Beck Test N/A Arterial Blood Right Brachial Gas Puncture Site Arterial 0.6 % Blood Carboxyhem oglobin Arterial Blood 0.8 % Methemoglobin Blood Gas A-a O2 30.1 mmHg Differential Oxyhemoglobin 95.8 % Percent Blood Gas 37.0 C Temperature Blood Gas NASAL CANNULA Modality FiO2 33.0 % Blood Gas DR. CORREA Critical Value Read Back Blood Gas M.DMickey Notified Whom Blood Gas 06/24/2018 4:45:2 Notified Time 6 PM Current Medications Medications Dose Sig/Juan Start Time Status Last (Trade) Ordered Route PRN Stop Time Admin Dose Reason Admin Lorazepam 0.5 mg ONCE ONCE 06/24/18 DC 06/24/18 (Ativan) IV 15:30 15:24 06/24/18 15:31 Lorazepam 0.5 mg ONCE ONCE 06/24/18 DC 06/24/18 (Ativan) IV 17:00 17:04 06/24/18 17:01 Ondansetron 4 mg ER BRIDGE 06/24/18 HCl (Zofran PRN IV 18:00 Inj) NAUSEA/VOMITI 06/25/18 17:59 NG 650 mg ER BRIDGE 06/24/18 Acetaminophen PRN PO 18:00 (Tylenol .MILD PAIN 06/25/18 17:59 Tab) 1-3 OR TEMP Lorazepam 0.5 mg ONCE ONCE 06/24/18 DC (Ativan) IV 18:30 06/24/18 18:31 Procedures/MDM EMERGENT LABS AND DIAGNOSTIC STUDIES: Lab Results above were reviewed and interpreted by me. CBC: Anemia BMP: Evidence of renal failure with uremia but with no electrolyte abnormality. Troponin within normal limits, not indicative of cardiac ischemia ABG shows evidence of acidosis with elevated PaCO2, consistent with hypercapnic respiratory failure 12-lead EKG was interpreted by Zoila Correa MD: Sinus rhythm with PACs at 95 bpm Normal axis Normal intervals No acute ST or T wave changes suggestive of acute ischemia or STEMI. Radiology Results as interpreted by Radiology below were reviewed by Prasanna Correa MD: Chest x-ray shows no acute abnormalities Initial Nursing notes reviewed. Previous Medical Records requested via the Electronic Health Record. EMERGENCY DEPARTMENT COURSE / MEDICAL DECISION MAKING: Patient is presenting with agitation and respiratory distress. His saturations are normal but he is tachypneic on exam with wheezing. EKG did not show any evidence of acute ischemia. Workup consistent with hypercapnic respiratory failure. Doubt sepsis or pneumonia. Doubt pulmonary embolism or ACS. Patient required multiple doses of Ativan due to his agitation. This may be secondary to his dementia, uremia, on top of his hypercapnia. He was started on BiPAP and albuterol. He will require admission for further stabilization. Critical Care Time: 50 minutes Treatments/Evaluations: Close monitoring and treatment of unstable vital signs, cardiorespiratory, and neurologic status, while maintaining tight balance of fluid, respiratory, and cardiac interventions. This time includes discussing the case with the patient and the patients family. This time does not include all procedures stated elsewhere in this record. This time also includes reviewing old records, labs and radiological studies. This time includes examining and re- examining the patient. Additionally, this time also includes arranging care with admitting and consulting physicians. Accepting Care Team: Current data and ongoing care discussed. Time: Time of admission Primary Provider: Dr. Christi Rosado Diagnosis: Primary Impression: Acute hypercapnic respiratory failure Additional Impressions: Chronic anemia Altered mental status Altered mental status type: disorientation Qualified Codes: R41.0 - Disorientation, unspecified Condition: Serious DONIS CORREA MD Jun 24, 2018 19:01
[2018-06-24] MEDS ORDERED: NACL 0.9% 3 ML SYG IV SCH (20:00)
[2018-06-24] MEDS ORDERED: DOCUSATE SODIUM 100 MG CAP PO PRN (20:00)
[2018-06-24] MEDS ORDERED: ALBUTEROL/IPRATROPIUM (NEB) 3 ML AMP NEB PRN (20:00)
[2018-06-24 20:30] VITALS: PULSE 95
[2018-06-24 20:32] VITALS: PULSE 96
[2018-06-24] MEDS: ALBUTEROL/IPRATROPIUM (NEB) 3 ML AMP NEB SCH (20:32)
[2018-06-24 20:44] VITALS: BP 133/71; PULSE 97; RESP 21
--- NOTE | 2018-06-24 20:46 | HP ---
DATE OF ADMISSION: 06/24/2018 REASON FOR ADMISSION: Encephalopathy, acute hypercapnic respiratory failure. HISTORY OF PRESENT ILLNESS: The patient is an unfortunate 72-year-old [place]ine[place]-speaking male, very we ll known to me from recent admission to [facility]. The patient has a history of end -stage renal disease, COPD advanced, hypertension, anxiety disorder, gout, and hypothyroidism who has been admitted multiple times to the hospital in the past few months due to anxiety, pneumonia, and r espiratory failure. The patient was just discharged two days ago from [facility] as he was treated for respiratory failure, pneumonia, and ongoing anxiety. He was seen by the psychiatr ist and he was prescribed Zyprexa and Ativan. The patient was doing overall okay up until this morni ng when he was noted to be slightly more anxious. He went to the dialysis center and in the dialysis center, he was noted to be more encephalopathic, confused, and with shortness of breath. He was not ed to be weaker. The patient could not complete his dialysis and was brought into the Emergency Depa [facility]ment of [facility]. He was noted to be confused and very agitated, unable to answer quest ions. The patient underwent extensive workup including labs. White count was normal at 6.5. Hemogl obin was slightly low at 7.8. Chemistry showed a BUN of 102 and a creatinine of 10.69. Potassium wa s normal at 4.1. BNP is high at 3140. ABG showed respiratory acidosis, pH of 7.26, pCO2 of 71, bica rbonate 32, O2 sat 97% at 33% FIO2. The patient was placed immediately on BiPAP and received Ativan 1 mg IM x1. The patient is to be admitted to telemetry for further care. He did not appear to be in fluid overlo ad state. Again, patient was unable to complete his dialysis session today. I requested a nephrolog y consultation with his hotel room attendant, Dr. Elliot Marcial. Case discussed with daughter at bedside regjosé miguel villasenoring the patient's overall condition and plan of care. The patient is admitted for further care. PAST MEDICAL HISTORY: End-stage renal disease, hypertension, COPD, hypoxemic hypercapnic respiratory failure, anxiety, gout, hypothyroidism, coronary artery disease. SURGICAL HISTORY: Left upper extremity AV fistula and status post left nephrectomy. SOCIAL HISTORY: The patient is a prior smoker. Alcohol and IV drug abuse none. The patient is in h ospice. The patient currently resides at the shelter facility at [facility], previously was at home. FAMILY HISTORY: Noncontributory. MEDICATIONS: The patient's medications reviewed. Per reconciliation, these are the medication he ta kes: 1. Flomax 0.4 at bedtime. 2. Aggrenox, but I believe he only takes Aspirin 81 mg daily. 3. Atorvastatin 10 mg at bedtime. 4. Lopressor 12.5 b.i.d. 5. Clonazepam 1 mg b.i.d. p.r.n. 6. Mirtazapine 50 mg at bedtime. 7. Ropinirole 1 mg at bedtime. 8. Renvela 1600 with meals. 9. Symbicort two puffs b.i.d. 10. Singulair 10 mg at bedtime. 11. Colace 100 daily. 12. Synthroid 25 mcg daily. 13. Folic acid 1 mg daily. 14. Uloric 40 mg daily. We will also review his current meds at [facility] in which I believe they are slightly differen t. PHYSICAL EXAMINATION: VITAL SIGNS: Temperature is 98.1, pulse 76, respiration 18, blood pressure is 138/72, saturation 100 % on BiPAP 125% FIO2. GENERAL: The patient is in no acute distress. BiPAP is in place. The patient is a sleeping, restin g, difficult to arouse or to communicate with currently. CARDIOVASCULAR: S1, S2, regular rate. LUNGS: Clear. ABDOMEN: Soft, nontender. EXTREMITIES: Actually, no clubbing, cyanosis or edema. Spontaneously moving all extremities. Left AV fistula is in place. LABORATORY DATA: White count 6.5, hemoglobin 7.8, hematocrit 25, platelet count 178, neutrophil 81%, lymphocytes 6%, and monocytes 11%. Chemistry: Sodium 141, potassium 4.1, chloride 95, bicarbonate 20, BUN is 102, creatinine 10.69, and glucose 138. Calcium is 9.4. Troponin negative at 0.043. BNP 3140. INR 0.85. IMAGING DATA: The patient's chest x-ray shows no acute cardiopulmonary disease. ASSESSMENT AND PLAN: This is a 72-year-old [place]-speaking male with history of end-stage renal dis ease, chronic obstructive pulmonary disease, and anxiety disorder who presented with encephalopathy a nd hypercapnic respiratory failure. 1. Respiratory failure. The patient with hypercapnic respiratory failure and elevated CO2. The pat ient will be placed on BiPAP at night and p.r.n. We will consult housekeeping room attendant. We well to obtain A BG in the a.m. Chest x-ray is otherwise negative. No evidence of fluid overload state, status post recent treatment for pneumonia. 2. Cardiovascular. The patient was placed on heparin for DVT prophylaxis. Continue beta blockers. Monitor vitals closely in telemetry unit. Troponin is negative. 3. Infectious disease. Currently, no evidence of infectious process. Recently completed treatment for pneumonia. 4. Encephalopathy, may be due to uremia or hypercapnic respiratory failure. In the meantime, contin ue with BiPAP. Anxiolytics p.r.n. Continue Zyprexa. Monitor mood closely. This may be due to hosp ital psychosis, new environment and shelter facility, etc. We will follow closely. Currentl y, there is no evidence of infectious process to explain above encephalopathy. We will follow. 5. Hypothyroidism. Continue Synthroid. 6. Gout. Followup uric acid levels. 7. History of coronary artery disease. Continue statin and aspirin. Control his risk factors. 8. We will request a sitter to maximum the patient's safety and restraints as needed. 9. Anemia, likely anemia of chronic kidney disease. Epogen to be given by nephrology team. Transf use p.r.n. There is no evidence of blood loss or bleeding. We will place the patient on Protonix fo r GI prophylaxis. 10. Restless leg syndrome. Continue Requip. 11 Benign prostatic hypertrophy. Continue Flomax. 12. Case discussed with daughter at bedside. We will monitor closely. Family are aware of plan of care. Dictated By: LEONORA SNIDER/VIKTOR Conf#: [id number] DID#: [id number]
[2018-06-24 21:00] VITALS: Ht 167.6 cm; Wt 83.8 kg
[2018-06-24] MEDS: TAMSULOSIN (SR) 0.4 MG CAP PO SCH (21:00)
[2018-06-24] MEDS: ATORVASTATIN 10 MG TAB PO SCH (21:00)
[2018-06-24] MEDS: ROPINIROLE 1 MG TAB PO SCH (21:00)
[2018-06-24] MEDS: MIRTAZAPINE 15 MG TAB PO SCH (21:00)
[2018-06-24] MEDS: METOPROLOL 25 MG TAB PO SCH (21:00)
[2018-06-24] MEDS: MONTELUKAST 10 MG TAB PO SCH (21:00)
[2018-06-24 21:43] VITALS: PULSE 96
[2018-06-24] MEDS: LORAZEPAM 2 MG INJ IV PRN (22:03)
[2018-06-24 22:10] VITALS: BP 136/52; PULSE 87; RESP 30
[2018-06-24] MEDS: HEPARIN 5,000 UNIT/1 ML VIAL SC SCH (23:06)
[2018-06-24] MEDS: DEXTROSE 5%-0.45% NACL 1,000 ML IV SCH (23:06)
[2018-06-24 23:24] VITALS: PULSE 90
[2018-06-25] VITALS (31 sets, daily range): BP systolic 102–162; BP diastolic 48–91; PULSE 74–99; RESP 16–24
[2018-06-25] MEDS: ALBUTEROL/IPRATROPIUM (NEB) 3 ML AMP NEB SCH ×6 (01:19→21:10)
[2018-06-25] MEDS: LORAZEPAM 2 MG INJ IV PRN ×4 (03:40→22:16)
[2018-06-25] MEDS: morphine 2 MG INJ IV PRN ×2 (05:32→23:34)
[2018-06-25] MEDS: PANTOPRAZOLE 40 MG INJ IV SCH (06:06)
[2018-06-25] MEDS: LEVOTHYROXINE 25 MCG TAB PO SCH (06:41)
[2018-06-25] MEDS: SEVELAMER CARBONATE 0.8 GM PKT PO SCH ×3 (07:55→17:55)
--- NOTE | 2018-06-25 08:31 | CONS ---
DATE OF ADMISSION: 06/24/2018 DATE OF CONSULTATION: 06/25/2018 HOSPITAL COURSE : This is a 72-year-old male well known to me with a past medical history of end-sta ge renal disease, on dialysis Friday, Friday, Friday, access AV fistula, history of chronic obstru ctive pulmonary disease, history of anemia, history of anxiety disorder, history of cognitive decline , history of hypothyroidism, who presents to the [facility] from the dialysis unit with respiratory failure. The patient went to dialysis unit, was noted to be very confused and agita ramin. As a result, he was brought into [facility] Emergency Room. Upon arrival, the patient had laboratory data drawn, which showed white count 6.5, hemoglobin 7.8, BUN of 102, creatinine 10.6 9. The patient also had ABG, which showed hypercapnic respiratory failure with a pH of 7.26, pCO2 of 71. The patient was placed on BiPAP, was given Ativan, admitted to telemetry for evaluation. In terms of patient's renal history, the patient is on dialysis Friday, Friday and Friday. Last h emodialysis is unknown. The patient denies any hemoptysis, hematemesis or hematochezia. PAST SURGICAL HISTORY: History of end-stage renal disease, hypertension, chronic obstructive pulmona ry disease, anxiety, gout, hypothyroidism, coronary artery disease. PAST SURGICAL HISTORY: Left upper extremity AV fistula, status post left nephrectomy. SOCIAL HISTORY: Prior smoker. FAMILY HISTORY: Noncontributory. MEDICATIONS: The patient's medications have been reviewed. REVIEW OF SYSTEMS: A 14-point review of systems was conduction. Pertinent positives stated in HPI, otherwise negative. PHYSICAL EXAMINATION: VITAL SIGNS: Blood pressure is 146/72, respirations 16, pulse 96, temperature 98.8. HEENT: Head is normocephalic. NECK: Supple. HEART: Regular rate. LUNGS: Show diminished breath sounds at the base. ABDOMEN: Soft, nontender to palpation. No rebound or guarding. EXTREMITIES: Negative for clubbing, cyanosis, no edema. DERMATOLOGIC: No rashes. MUSCULOSKELETAL: No joint effusion. NEUROLOGIC: No change in exam. LABORATORY DATA: Showed a white count of 5.2, hemoglobin 7.6, platelet count 156. Sodium 141, potas sium 4.1, BUN 102, creatinine 10.69. ASSESSMENT AND PLAN: This is a 72-year-old male who presents with: 1. End-stage renal disease, access AV fistula. Anticipate dialysis daily for solute clearance volum e removal. We will plan for dialysis today for 3 hours 3k bath, calcium 2.5, ultrafiltrate as tolera ramin. 2. Anemia. We will check iron panel. Give the patient Epogen. Monitor hemoglobin and hematocrit l evels. 3. Mineral bone disorder, monitor calcium and phosphorus levels. Continue phosphate binders. 4. Hypertension. Continue current blood pressure regimen. 5. Acute hypoxemic respiratory failure. Etiology is possibly secondary to chronic obstructive pulmo nary disease exacerbation, questionable pneumonia. Continue BiPAP. Continue nebulizers. Follow up with pulmonary. 6. Encephalopathy, etiology is multifactorial, toxic metabolic, possible uremia. Plan is to continu e hemodialysis for solute clearance and monitor closely. 7. Anxiety disorder. Continue Ativan. 8. Coronary artery disease. Continue medical management. 9. History of restless leg syndrome. Continue medical management. 10. Benign prostatic hypertrophy. Continue Flomax. 12. Hypothyroidism. Continue Synthroid. Thank you, Dr. Barraza, for this interesting consult. It will be a pleasure to follow patient with you throughout the hospital course. Dictated By: KITA ALVAREZ DO NR/NTS Conf#: [id number] DID#: [id number] CC: LEONORA BARRAZA MD;*EndCC*
[2018-06-25] MEDS: FOLIC ACID 1 MG TAB PO SCH (09:00)
[2018-06-25] MEDS: METOPROLOL 25 MG TAB PO SCH ×2 (09:00→21:00)
[2018-06-25] MEDS: DOCUSATE SODIUM 100 MG CAP PO SCH (09:00)
[2018-06-25] MEDS: OLANZAPINE 5 MG TAB PO SCH (09:00)
[2018-06-25] MEDS: HEPARIN 5,000 UNIT/1 ML VIAL SC SCH (10:00)
[2018-06-25] MEDS: METHYLPREDNISOLONE 40 MG INJ IV SCH ×2 (13:40→18:44)
--- NOTE | 2018-06-25 13:52 | CONS ---
DATE OF ADMISSION: 06/24/2018 DATE OF CONSULTATION: TYPE OF CONSULTATION: Pulmonary. REASON FOR CONSULTATION: Shortness of breath. Thank you, Dr. Barraza, for this consultation. HISTORY OF PRESENT ILLNESS: This is an unfortunate 72-year-old gentleman with multiple medical probl ems, recent admission to [facility] for advanced COPD, comes in this time with increa sing shortness of breath, orthopnea, PND following recent discharge. He remains significantly agitat ed, hypoxemic with mild respiratory acidosis on recent arterial blood gas. PAST MEDICAL HISTORY: 1. As noted COPD. 2. Chronic hypercapnic respiratory failure. 3. End-stage renal failure, on hemodialysis. 4. Hypothyroidism. MEDICATIONS: Extensive, please see chart. SOCIAL HISTORY: He Is an ex-smoker. No alcohol, no history of drug use. FAMILY HISTORY: Noncontributory. REVIEW OF SYSTEMS: A 12-point review of systems was negative other than that mentioned above. PHYSICAL EXAMINATION: GENERAL: Agitated, elderly appearing gentleman. VITAL SIGNS: Temperature 98, pulse 91, blood pressure 134/91, O2 saturation 98% on 2 liters nasal ca nnula. NECK: Supple. No JVD or lymphadenopathy. CARDIAC: S1, S2. No added sounds or murmurs. CHEST: Diminished air entry bilaterally. ABDOMEN: Soft, nontender. No guarding or rebound. EXTREMITIES: No cyanosis, clubbing or edema. NEUROLOGIC: Generalized weakness. LABORATORY DATA: White count 5.2, hemoglobin 7.6, platelets of 157. BUN 109, creatinine 12.07. INR was 1.85. DIAGNOSTIC DATA: Chest x-ray was reviewed, which showed no acute cardiopulmonary disease. IMPRESSION AND PLAN: 1. Acute on chronic hypoxemic and hypercapnic respiratory failure secondary to chronic obstructive p ulmonary disease exacerbation. 2. Underlying significant encephalopathy complicated by likely dementia and psychiatric disease. 3. End-stage renal failure on hemodialysis; however no evidence of volume overload on chest x-ray. The patient will require: 1. Steroid taper. 2. Bronchodilators. 3. P.r.n. noninvasive positive pressure ventilation. 4. Aspiration precautions. 5. DVT and GI prophylaxis. Dictated By: BIA VALDIVIA MD SV/VIKTOR Conf#: [id number] DID#: [id number] CC: LEONORA BARRAZA MD;*End*
--- NOTE | 2018-06-25 15:31 | PN ---
DATE: 06/25/2018 SUBJECTIVE: The patient was seen, currently on nasal cannula. ABG showed respiratory acidosis, pH 7 .27, pCO2 of 64, bicarbonate 29, saturation is 94% on 31% FiO2 earlier on BiPAP. The patient a t 7:00 p.m. yesterday. The patient was seen by nephrology and pulmonology. Plan for dialysis today. Case was discussed with complex case manager regarding placement. It was difficult to place recently due t o patient's anxiety disorder. PHYSICAL EXAMINATION: VITAL SIGNS: Temperature 98.7, pulse 99, respirations 24, blood pressure 134/91, saturation 98% on 2 liters. GENERAL: The patient is resting in bed, nasal cannula in place, currently difficult to communicate w ith and he is difficult to arouse, overall moving around. CARDIOVASCULAR: S1, S2. LUNGS: Decreased bilaterally. ABDOMEN: Soft, nontender. EXTREMITIES: No clubbing, cyanosis or edema. LABORATORY DATA: White count 5.2, hemoglobin 7.6, hematocrit 25, platelet count 157, neutrophils 71% , lymphs 11%, monocytes 15%. Chemistry: Sodium 144, potassium 4.6, chloride 104, bicarbonate 25, BU N is 109, creatinine 12.07, glucose of 88. Hemoglobin A1c is 5.5. DIAGNOSTIC DATA: Chest x-ray dated yesterday shows no acute cardiopulmonary disease. MEDICATIONS: 1. Epogen 10,000 every Friday, Friday and Friday. 2. Solu-Medrol 40 IV q.6. 3. Colace 100 daily. 4. Folic acid daily. 5. Zyprexa 5 mg daily. 6. Renvela 1.6 t.i.d. meals. 7. Synthroid 25 daily. 8. Protonix 40 IV daily. 9. Heparin 5000 q.12. 10. DuoNeb every 4 hours. 11. Lipitor 10 mg at bedtime. 12. Lopressor 12.5 b.i.d. 13. Remeron 15 at bedtime. 14. Singulair 10 mg at bedtime. 15. Requip 1 mg at bedtime. 16. Flomax 0.4 at bedtime. 17. Ativan p.r.n. 18. Zofran. 19. Tylenol p.r.n. 20. Morphine. 21. Colace. 22. Milk of Magnesia. 23. D5 half normal at 35 mL an hour. ASSESSMENT AND PLAN: This is a 72-year-old Irish-speaking male with history of end-stage renal dis ease, chronic obstructive pulmonary disease, anxiety disorder, presented with encephalopathy and hype rcapnic respiratory failure. 1. Respiratory. The patient with hypercapnic respiratory failure. We would like him to be on BiPAP at night and p.r.n. The patient was started on steroids for chronic obstructive pulmonary disease e xacerbation and also already on breathing treatment. We will continue to monitor. Steroids may exac erbate his psychosis. 2. Cardiovascular. Deep venous thrombosis prophylaxis will be provided. Observe. 3. Infectious disease. Currently off antibiotics, status post recent treatment for pneumonia. 4. Encephalopathy, may be multifactorial due to his recurrent hospitalizations, uremia, infectious p rocess, dementia, et cetera. We will follow. Anxiolytics p.r.n. and Zyprexa was recently by the jose armando chiatrist. 5. Hypothyroidism. Continue Synthroid. 6. Diet: Currently n.p.o. as the patient was too lethargic to participate with speech therapy. We will continue to follow. Continue D5 half normal saline for now. 7. End-stage renal disease, dialysis 3 times a week. The patient will be dialyzed today. 8. Anemia of chronic disease due to chronic kidney disease. Continue Epogen per nephrology team. 9. Restless leg syndrome. Continue Requip. 10. Benign prostatic hypertrophy, on Flomax. Continue to follow. Case was discussed with family regarding placement possibly at [facility] as they have a Irish-speaking staff. Previously, it was difficult to place him there du e to patient's ongoing severe anxiety. We will follow. Dictated By: LEONORA SNIDER/NTS Conf#: [id number] DID#: [id number] CC: BIA VALDIVIA MD;*End*
[2018-06-25] MEDS: DEXTROSE 5%-0.45% NACL 1,000 ML IV SCH (19:46)
[2018-06-25] MEDS: TAMSULOSIN (SR) 0.4 MG CAP PO SCH (21:00)
[2018-06-25] MEDS: MONTELUKAST 10 MG TAB PO SCH (21:00)
[2018-06-25] MEDS: ROPINIROLE 1 MG TAB PO SCH (21:00)
[2018-06-25] MEDS: ATORVASTATIN 10 MG TAB PO SCH (21:00)
[2018-06-25] MEDS: MIRTAZAPINE 15 MG TAB PO SCH (21:00)
[2018-06-26] VITALS (36 sets, daily range): BP systolic 110–161; BP diastolic 50–100; PULSE 68–119; RESP 16–25
[2018-06-26] MEDS ORDERED: hydrALAzine 20 MG INJ IV PRN
[2018-06-26] MEDS: ONDANSETRON 4 MG INJ IV PRN (00:28)
[2018-06-26] MEDS: METHYLPREDNISOLONE 40 MG INJ IV SCH ×4 (00:34→22:11)
[2018-06-26] MEDS: HEPARIN 5,000 UNIT/1 ML VIAL SC SCH ×3 (00:39→22:22)
[2018-06-26] MEDS: HALOPERIDOL 5 MG INJ IV PRN ×4 (00:53→14:51)
[2018-06-26] MEDS: LORAZEPAM 2 MG INJ IV PRN ×6 (01:18→23:59)
[2018-06-26] MEDS: ALBUTEROL/IPRATROPIUM (NEB) 3 ML AMP NEB SCH ×6 (01:22→20:40)
[2018-06-26] MEDS: EPOETIN 10000 UNITS/1 ML INJ (ESRD) SC ONE ×2 (01:43→01:49)
[2018-06-26] MEDS: morphine 2 MG INJ IV PRN (03:37)
[2018-06-26] MEDS: PANTOPRAZOLE 40 MG INJ IV SCH (05:48)
[2018-06-26] MEDS: LEVOTHYROXINE 25 MCG TAB PO SCH (07:00)
[2018-06-26] MEDS: OLANZAPINE 5 MG TAB PO SCH ×2 (07:47→22:10)
[2018-06-26] MEDS: FOLIC ACID 1 MG TAB PO SCH (07:47)
[2018-06-26] MEDS: SEVELAMER CARBONATE 0.8 GM PKT PO SCH ×3 (07:47→17:55)
[2018-06-26] MEDS: DOCUSATE SODIUM 100 MG CAP PO SCH (07:48)
[2018-06-26] MEDS: METOPROLOL 25 MG TAB PO SCH ×2 (07:49→22:12)
--- NOTE | 2018-06-26 08:20 | PN ---
DATE: 06/26/2018 SUBJECTIVE: The patient remains confused, had a sitter overnight. No other events noted. OBJECTIVE: VITAL SIGNS: Blood pressure is 145/72, respirations 16, pulse 72, temperature 98.6. HEENT: Head is normocephalic. Pupils are reactive to light. NECK: Supple. HEART: Regular rate. LUNGS: Show diminished breath sounds at the base. ABDOMEN: Soft, nontender to palpation. No rebound or guarding. EXTREMITIES: Negative for clubbing, cyanosis, no edema. DERMATOLOGIC: No rashes. MUSCULOSKELETAL: No joint effusion. NEUROLOGIC: No change in exam. MEDICATIONS: Reviewed. LABORATORY DATA: From 06/25/2018 has been reviewed. ASSESSMENT AND PLAN: 1. End-stage renal disease with access AV fistula. The patient had hemodialysis yesterday, tolerate d well. Plan is for dialysis again today for solute clearance. 2. Anemia. Continue to monitor hemoglobin and hematocrit levels. We will give Epogen as needed. 3. Mineral bone disorder, monitor calcium and phosphorus levels. 4. Hypertension. Continue current blood pressure regimen. 5. Acute hypoxemic respiratory failure, etiology is secondary to chronic obstructive pulmonary disea se exacerbation, possible pneumonia. Continue medical management. Continue nebulizers. 6. Encephalopathy. Etiology is likely multifactorial, toxic metabolic, uremic. Continue hemodialys is for solute clearance. 7. Anxiety disorder. Continue Ativan. 8. Coronary artery disease. Continue medical management. 9. History of restless leg syndrome. Continue current treatment plan. 10. Benign prostatic hypertrophy. Continue Flomax. 11. Hypothyroidism. Continue Synthroid. Dictated By: KITA ALVAREZ DO NR/NTS Conf#: [id number] DID#: [id number] CC: LEONORA LOUISE MD; BIA VALDIVIA MD;*EndCC*
--- NOTE | 2018-06-26 14:00 | PN ---
DATE: 06/26/2018 SUBJECTIVE: The patient was seen, appears to be very anxious still ongoing. We will taper down the Solu-Medrol. This may be exacerbate his psychosis and anxiety. ABG today showed improved in the pat ient's CO2, pH of 7.36, pCO2 of 52, bicarbonate 29, pO2 is 53, saturation is documented at 85% on 25% FiO2. PHYSICAL EXAMINATION: VITAL SIGNS: Temperature 98.2, pulse is 73, respiratory rate 20, saturation 94% on 2 liters. GENERAL: No acute distress. HEENT: The patient is anxious, pale. CARDIOVASCULAR: S1, S2. LUNGS: Decreased bilaterally clear. ABDOMEN: Soft, nontender. EXTREMITIES: No clubbing, cyanosis or edema. LABORATORY DATA: White count is 6, hemoglobin 7.9, hematocrit 25, platelets 172, neutrophils 91%, ly mphs 4%. Chemistry: Sodium 137, potassium 4.9, chloride 100, bicarbonate 29, BUN is 57, creatinine 6.68, glucose of 95. The patient's MRSA screening is negative. DIAGNOSTIC DATA: Chest x-ray done on 06/24/2018 shows no acute cardiopulmonary disease. MEDICATIONS: Reviewed and they include: 1. Solu-Medrol 40 IV q.6. We will reduce it to q.12. 2. Epogen 10,000 every Friday, Friday, Friday. 3. Haldol 2 mg IV q.4 p.r.n. 4. Hydralazine p.r.n. 5. Colace 100 daily. 6. Folic acid 1 mg daily. 7. Zyprexa 5 mg daily. 8. Renvela with meals. 9. Synthroid 25 mcg daily. 10. Lipitor 40 mg IV daily. 11. Heparin 5000 q.12. 12. DuoNeb q.4. 13. Lipitor 10 mg at bedtime. 14. Lopressor 12.5 b.i.d. 15. Remeron 15 mg at bedtime. 16. Singulair 10 mg at bedtime. 17. Requip 1 mg at bedtime. 16. Flomax 0.4 at bedtime. 17. Ativan as directed. 18. Zofran. 19. Tylenol. 20. Morphine. 21. Milk of Magnesia. 22. D5 half normal at 35 mL an hour. This patient has a tendency for mild hypoglycemia. ASSESSMENT AND PLAN: This is a 72-year-old Mexican-speaking male with history of end-stage renal dis ease, chronic obstructive pulmonary disease, anxiety disorder, presented with encephalopathy and hype rcapnic respiratory failure. 1. Respiratory. The patient with hypercapnic respiratory failure. Continue BiPAP at night and p.r. n. Pulmonary is following. Taper down steroids. No evidence of infectious process. 2. Cardiovascular. Continue deep venous thrombosis prophylaxis. Vitals are overall stable. 3. Infectious disease, off antibiotics. 4. Encephalopathy, likely due to multiple hospitalizations, possible hospital psychosis, possible st eroid-induced psychosis, possible uremia versus other. We will continue to monitor. Increase Zyprex a to 5 mg b.i.d. then taper down steroids. Continue to monitor. P.r.n. Ativan and Haldol will be pr ovided. The patient with restraints plus or minus sitter. 5. Hypothyroidism. Continue Synthroid. 6. Diet as tolerated. 7. Tendency for hypoglycemic. Continue D5 half normal at 30 mL an hour. 8. End-stage renal disease. Dialysis 3 times a week. No tremaine fluid overload state. Monitor elect rolytes. 9. Restless leg syndrome. Continue Requip. 10. Benign prostatic hypertrophy. Continue Flomax. We will follow closely. Dictated By: LEONORA SNIDER/VIKTOR Conf#: [id number] DID#: [id number] CC: BIA VALDIVIA MD;*EndCC*
--- NOTE | 2018-06-26 15:47 | CONS ---
Consult Date/Type/Reason Admit Date/Time Jun 24, 2018 at 17:49 Initial Consult Date Type of Consult Pulmonary Date/Time of Note DATE: 06/26/18 TIME: 15:47 Subjective Less agitated. Objective Vital Signs Date Temp Pulse Resp B/P (MAP) Pulse Ox O2 O2 Flow FiO2 Time Delivery Rate 06/26/18 71 92 35 15:43 06/26/18 28 Nasal 4.0 13:54 Cannula 06/26/18 134/65 12:00 (88) 06/26/18 98.2 11:36 Intake and Output 06/25/18 06/25/18 06/26/18 1515:00 23:00 07:00 IntakeIntake Total 0 ml OutputOutput Total 200 ml 1400 ml BalanceBalance -200 ml -1400 ml Exam PHYSICAL EXAMINATION: GENERAL: Agitated, elderly appearing gentleman. VITAL SIGNS: Temperature 98, pulse 91, blood pressure 134/91, O2 saturation 98% on 2 liters nasal cannula. NECK: Supple. No JVD or lymphadenopathy. CARDIAC: S1, S2. No added sounds or murmurs. CHEST: Diminished air entry bilaterally. ABDOMEN: Soft, nontender. No guarding or rebound. EXTREMITIES: No cyanosis, clubbing or edema. NEUROLOGIC: Generalized weakness. Vent Setting Fraction of Inspired Oxygen pe: 28 Results/Medications Result Diagram: 06/26/18 0931 06/26/18 0654 Results 24 hrs Laboratory Tests Test 06/26/18 05:00 06/26/18 06:54 06/26/18 09:31 Blood Gas Specimen Source Blood arterial Arterial Blood Date Drawn 06/26/2018 4:49:13 AM Arterial Blood pH 7.364 (Temp corrected) Arterial Blood pCO2 52.4 H (Temp correct) Arterial Blood pO2 53.1 *L (Temp corrected) Arterial Blood HCO3 29.2 H Arterial Blood Base Excess 2.9 Arterial Blood 84.6 L Oxygen Saturation Beck Test ACCEPTAB Arterial Blood Gas Right Radial Puncture Site Arterial 0.8 Blood Carboxyhemoglobin Arterial Blood Methemoglobin 0.3 Blood Gas A-a O2 62.9 H Differential Oxyhemoglobin Percent 83.7 L Blood Gas Temperature 37.0 Blood Gas Respiration Rate 14.0 Blood Gas Actual 24 Respiration Rate Blood Gas Modality MASK - BIPAP FiO2 25.0 Blood Gas IPAP/EPAP Ratio 18/6 Blood Gas Critical Value J SANTANA RN Read Back Blood Gas Notified Whom ROSALIA Blood Gas Notified Time 06/26/2018 4:54:16 AM Sodium Level 137 Potassium Level 4.9 Chloride Level 100 Carbon Dioxide Level 29 Anion Gap 8 Blood Urea Nitrogen 57 #H Creatinine 6.68 #H Est Glomerular Filtrat Rate mL/min Glucose Level 95 Calcium Level 9.1 Phosphorus Level 5.9 H Magnesium Level 2.0 White Blood Count 6.0 Red Blood Count 2.50 L Hemoglobin 7.9 L Hematocrit 25.4 L Mean Corpuscular Volume 101.6 H Mean Corpuscular Hemoglobin 31.6 Mean Corpuscular 31.1 L Hemoglobin Concent Red Cell Distribution Width 14.6 H Platelet Count 173 Mean Platelet Volume 9.9 Immature Granulocytes % 0.700 H Neutrophils % 91.3 H Lymphocytes % 4.0 L Monocytes % 3.8 Eosinophils % 0.0 Basophils % 0.2 Nucleated Red Blood Cells % 0.0 Immature Granulocytes # 0.040 H Neutrophils # 5.5 Lymphocytes # 0.2 L Monocytes # 0.2 L Eosinophils # 0.0 Basophils # 0.0 Nucleated Red Blood Cells # 0.0 Medications Current Medications Dextrose/Sodium Chloride 1,000 ml @ 35 mls/hr Q24H IV Last administered on 06/24/18at 23:06; Admin Dose 35 MLS/HR; Start 06/24/18 at 19:46 IV Flush (NS 3 ml) 3 ml PER PROTOCOL IV ; Start 06/24/18 at 20:00 Lorazepam (Ativan) 0.5 mg Q3H PRN IV .ANXIETY Last administered on 06/26/18at 15:13; Admin Dose 0.5 MG; Start 06/24/18 at 20:00 Ondansetron HCl (Zofran Inj) 4 mg Q6H PRN IV NAUSEA/VOMITING Last administered on 06/26/18at 00:28; Admin Dose 4 MG; Start 06/24/18 at 20:00 Acetaminophen (Tylenol Tab) 650 mg Q6H PRN PO .PAIN 1-3 OR TEMP; Start 06/24/18 at 20:00 Morphine Sulfate (morphine) 2 mg Q4H PRN IV .PAIN 7-10 Last administered on 06/26/18at 03:37; Admin Dose 2 MG; Start 06/24/18 at 20:00 Docusate Sodium (Colace) 100 mg Q12H PRN PO .CONSTIPATION; Start 06/24/18 at 20:00 Magnesium Hydroxide (Milk Of Mag) 30 ml DAILY PRN PO .CONSTIPATION; Start 06/24/18 at 20:00 Pantoprazole (Protonix Iv) 40 mg DAILY@06 IV Last administered on 06/26/18at 05:48; Admin Dose 40 MG; Start 06/25/18 at 06:00 Heparin Sodium (Porcine) (Heparin (5000 Units/1ml)) 5,000 unit Q12 SC Last administered on 06/26/18at 09:10; Admin Dose 5,000 UNIT; Start 06/24/18 at 21:00 Albuterol/ Ipratropium (Duoneb) 3 ml Q4H RESP THERAPY NEB Last administered on 06/26/18 13:53; Admin Dose 3 ML; Start 06/24/18 at 21:00 Albuterol/ Ipratropium (Duoneb) 3 ml Q2H RESP THERAPY PRN NEB SHORTNESS OF BREATH; Start 06/24/18 at 20:00 Atorvastatin Calcium (Lipitor) 10 mg QHS PO ; Start 06/24/18 at 21:00 Docusate Sodium (Colace) 100 mg DAILY PO Last administered on 06/26/18 07:48; Admin Dose 100 MG; Start 06/25/18 at 09:00 Folic Acid (Folic Acid) 1 mg DAILY PO Last administered on 06/26/18 07:47; Admin Dose 1 MG; Start 06/25/18 at 09:00 Levothyroxine Sodium (Synthroid) 25 mcg BEFORE BREAKFAST PO ; Start 06/25/18 at 07:00 Metoprolol Tartrate (Lopressor) 12.5 mg BID PO Last administered on 06/26/18 07:49; Admin Dose 12.5 MG; Start 06/24/18 at 21:00 Mirtazapine (Remeron) 15 mg HS PO ; Start 06/24/18 at 21:00 Montelukast Sodium (Singulair) 10 mg QHS PO ; Start 06/24/18 at 21:00 Ropinirole HCl (Requip) 1 mg HS PO ; Start 06/24/18 at 21:00 Sevelamer Carbonate (Renvela) 1.6 gm WITH MEALS PO Last administered on 06/26/18 07:47; Admin Dose 1.6 GM; Start 06/25/18 at 07:55 Tamsulosin HCl (Flomax) 0.4 mg HS PO ; Start 06/24/18 at 21:00 Lorazepam (Ativan) 1 mg Q6H PRN PO anxiety; Start 06/24/18 at 20:00 Epoetin Jamar (Epogen (Esrd)) 10,000 units MoWeFr@17 SC ; Start 06/26/18 at 17:00 Hydralazine HCl (Apresoline) 10 mg Q6H PRN IV ELEVATED BLOOD PRESSURE; Start 06/26/18 at 00:00 Haloperidol (Haldol) 2 mg Q4H PRN IV AGITATION/ANXIETY Last administered on 06/26/18at 14:51; Admin Dose 2 MG; Start 06/26/18 at 01:00 Methylprednisolone Sodium Succinate (Solu-Medrol) 40 mg Q12 IV ; Start 06/26/18 at 21:00 Olanzapine (Zyprexa) 5 mg BID PO ; Start 06/26/18 at 21:00 Assessment/Plan Hospital Course (Demo Recall) IMPRESSION 1. Acute on chronic hypoxemic and hypercapnic respiratory failure secondary to chronic obstructive pulmonary disease exacerbation. 2. Underlying significant encephalopathy complicated by likely dementia and psychiatric disease. 3. End-stage renal failure on hemodialysis; however no evidence of volume overload on chest x-ray. 4. Anemia. Plan 1. Steroid taper. 2. Bronchodilators. 3. P.r.n. noninvasive positive pressure ventilation. 4. Aspiration precautions. 5. DVT and GI prophylaxis. 6. GI eval ? BIA VALDIVIA MD, [facility] Jun 26, 2018 15:47
[2018-06-26] MEDS: EPOETIN 10000 UNITS/1 ML INJ (ESRD) SC SCH (18:46)
[2018-06-26] MEDS: DEXTROSE 5%-0.45% NACL 1,000 ML IV SCH (22:00)
[2018-06-26] MEDS: ROPINIROLE 1 MG TAB PO SCH (22:10)
[2018-06-26] MEDS: TAMSULOSIN (SR) 0.4 MG CAP PO SCH (22:10)
[2018-06-26] MEDS: MONTELUKAST 10 MG TAB PO SCH (22:11)
[2018-06-26] MEDS: MIRTAZAPINE 15 MG TAB PO SCH (22:13)
[2018-06-26] MEDS: ATORVASTATIN 10 MG TAB PO SCH (22:15)
[2018-06-27] VITALS (19 sets, daily range): BP systolic 118–155; BP diastolic 51–99; PULSE 88–106; RESP 18–28
[2018-06-27] MEDS: ALBUTEROL/IPRATROPIUM (NEB) 3 ML AMP NEB SCH ×6 (00:36→20:10)
[2018-06-27] MEDS: HALOPERIDOL 5 MG INJ IV PRN ×3 (00:46→23:13)
[2018-06-27] MEDS: PANTOPRAZOLE 40 MG INJ IV SCH (06:00)
[2018-06-27] MEDS: SEVELAMER CARBONATE 0.8 GM PKT PO SCH ×4 (07:55→18:25)
[2018-06-27] MEDS: OLANZAPINE 5 MG TAB PO SCH ×2 (08:13→21:00)
[2018-06-27] MEDS: LEVOTHYROXINE 25 MCG TAB PO SCH (08:13)
[2018-06-27] MEDS: METHYLPREDNISOLONE 40 MG INJ IV SCH (08:15)
[2018-06-27] MEDS: FOLIC ACID 1 MG TAB PO SCH (08:15)
[2018-06-27] MEDS: LORAZEPAM 2 MG INJ IV PRN ×2 (08:16→20:52)
[2018-06-27] MEDS: METOPROLOL 25 MG TAB PO SCH ×2 (08:18→21:00)
[2018-06-27] MEDS: HEPARIN 5,000 UNIT/1 ML VIAL SC SCH ×2 (08:28→21:00)
[2018-06-27] MEDS: DOCUSATE SODIUM 100 MG CAP PO SCH (08:31)
[2018-06-27] MEDS: DEXTROSE 5%-0.45% NACL 1,000 ML IV SCH (11:17)
--- NOTE | 2018-06-27 11:34 | CONS ---
Consult Date/Type/Reason Admit Date/Time Jun 24, 2018 at 17:49 Initial Consult Date Date/Time of Note DATE: 06/27/18 TIME: 11:32 Subjective The patient remains confused with periods of agitation, had a sitter overnight. No other events noted. tolerated hd yesterday. required medication OBJECTIVE: HEENT: Head is normocephalic. Pupils are reactive to light. NECK: Supple. HEART: Regular rate. LUNGS: Show diminished breath sounds at the base. ABDOMEN: Soft, nontender to palpation. No rebound or guarding. EXTREMITIES: Negative for clubbing, cyanosis, no edema. DERMATOLOGIC: No rashes. MUSCULOSKELETAL: No joint effusion. NEUROLOGIC: No change in exam. Objective Vitals Vital Signs Date Temp Pulse Resp B/P (MAP) Pulse Ox O2 O2 Flow FiO2 Time Delivery Rate 06/27/18 98.1 91 24 128/77 98 10:00 (94) 06/27/18 Nasal 2.0 09:47 Cannula 06/27/18 32 08:42 Intake and Output 06/26/18 06/26/18 06/27/18 1515:00 23:00 07:00 IntakeIntake Total 0 ml 420 ml OutputOutput Total 1500 ml BalanceBalance 0 ml -1080 ml Results/Medications Result Diagram: 06/27/18 0547 06/27/18 0547 Results 24 hrs Laboratory Tests Test 06/27/18 05:47 White Blood Count 7.4 # Red Blood Count 2.75 L Hemoglobin 8.5 L Hematocrit 27.8 L Mean Corpuscular Volume 101.1 H Mean Corpuscular Hemoglobin 30.9 Mean Corpuscular Hemoglobin Concent 30.6 L Red Cell Distribution Width 14.6 H Platelet Count 202 Mean Platelet Volume 10.3 Immature Granulocytes % 0.500 H Neutrophils % 90.6 H Lymphocytes % 2.7 L Monocytes % 6.1 Eosinophils % 0.0 Basophils % 0.1 Nucleated Red Blood Cells % 0.0 Immature Granulocytes # 0.040 H Neutrophils # 6.7 Lymphocytes # 0.2 L Monocytes # 0.5 Eosinophils # 0.0 Basophils # 0.0 Nucleated Red Blood Cells # 0.0 Sodium Level 136 Potassium Level 5.0 Chloride Level 98 Carbon Dioxide Level 24 Anion Gap 14 H Blood Urea Nitrogen 37 #H Creatinine 4.43 #H Est Glomerular Filtrat Rate mL/min Glucose Level 128 Calcium Level 9.3 Phosphorus Level 6.1 H Magnesium Level 2.2 Home Meds Active Scripts Mirtazapine* (Mirtazapine*) 15 Mg Tablet, 15 MG PO HS for 30 Days, #60 TAB take 15mg for 1 week and increase to 30mg at night Prov:HANK LUO MD 06/12/18 Clonazepam* (Clonazepam*) 1 Mg Tablet, 1 MG PO BID PRN for ANXIETY for 10 Days, #20 TAB Prov:HANK LUO MD 06/12/18 Reported Medications Docusate Sodium* (Docusate Sodium*) 100 Mg Capsule, 100 MG PO DAILY, #30 CAP 06/01/18 Tamsulosin Hcl* (Flomax*) 0.4 Mg Cap.er.24h, 0.4 MG PO HS, CAP 06/01/18 Ropinirole Hcl* (Ropinirole Hcl*) 1 Mg Tablet, 1 MG PO HS, TAB 06/01/18 Metoprolol Tartrate* (Lopressor*) 25 Mg Tab, 12.5 MG PO BID, #60 TAB 06/01/18 Budesonide-Formoterol Fumarate* (Symbicort*) 160-4.5 Hfa.aer.ad, 2 PUFF INHALATION BID, #1 EACH 06/01/18 Atorvastatin Calcium (Atorvastatin Calcium) 10 Mg Tablet, 10 MG PO QHS, #30 TAB 06/01/18 Aspirin-Dipyridamole* (Aggrenox*) 25-200 Mg Cpmp.12hr, 1 CAP PO BID, CAP 05/11/18 Sevelamer Carbonate* (Renvela*) 800 Mg Tablet, 1600 MG PO WITH MEALS, TAB 05/11/18 Montelukast Sodium* (Montelukast Sodium*) 10 Mg Tablet, 10 MG PO QHS, #30 TAB 05/11/18 Folic Acid* (Folic Acid*) 1 Mg Tablet, 1 MG PO DAILY, TAB 05/11/18 Levothyroxine Sodium* (Levothyroxine Sodium*) 25 Mcg Tablet, 25 MCG PO BEFORE BREAKFAST, #30 TAB 05/11/18 Febuxostat* (Uloric*) 40 Mg Tablet, 40 MG PO DAILY, TAB 05/11/18 Discontinued Scripts Levofloxacin* (Levaquin*) 500 Mg Tablet, 500 MG PO Q48H for 1 Day, #1 TAB take on 06/14 Prov:HANK LUO MD 06/12/18 Albuterol Sulfate (Proair Respiclick) 90 Mcg Aer.pow.ba, 2 PUFFS INHALATION Q6 PRN for SHORTNESS OF BREATH, #1 BOTTLE 5 Refills Prov:JENELLE SIMPSON MD 05/14/18 Medications Current Medications Dextrose/Sodium Chloride 1,000 ml @ 35 mls/hr Q24H IV Last administered on 06/27/18 11:17; Admin Dose 35 MLS/HR; Start 06/24/18 at 19:46 IV Flush (NS 3 ml) 3 ml PER PROTOCOL IV ; Start 06/24/18 at 20:00 Lorazepam (Ativan) 0.5 mg Q3H PRN IV .ANXIETY Last administered on 06/27/18 08:16; Admin Dose 0.5 MG; Start 06/24/18 at 20:00 Ondansetron HCl (Zofran Inj) 4 mg Q6H PRN IV NAUSEA/VOMITING Last administered on 06/26/18 00:28; Admin Dose 4 MG; Start 06/24/18 at 20:00 Acetaminophen (Tylenol Tab) 650 mg Q6H PRN PO .PAIN 1-3 OR TEMP; Start 06/24/18 at 20:00 Morphine Sulfate (morphine) 2 mg Q4H PRN IV .PAIN 7-10 Last administered on 06/26/18 03:37; Admin Dose 2 MG; Start 06/24/18 at 20:00 Docusate Sodium (Colace) 100 mg Q12H PRN PO .CONSTIPATION; Start 06/24/18 at 20:00 Magnesium Hydroxide (Milk Of Mag) 30 ml DAILY PRN PO .CONSTIPATION; Start 06/24/18 at 20:00 Pantoprazole (Protonix Iv) 40 mg DAILY@06 IV Last administered on 06/26/18 05:48; Admin Dose 40 MG; Start 06/25/18 at 06:00 Heparin Sodium (Porcine) (Heparin (5000 Units/1ml)) 5,000 unit Q12 SC Last administered on 06/27/18 08:28; Admin Dose 5,000 UNIT; Start 06/24/18 at 21:00 Albuterol/ Ipratropium (Duoneb) 3 ml Q4H RESP THERAPY NEB Last administered on 06/27/18 08:41; Admin Dose 3 ML; Start 06/24/18 at 21:00 Albuterol/ Ipratropium (Duoneb) 3 ml Q2H RESP THERAPY PRN NEB SHORTNESS OF BREATH; Start 06/24/18 at 20:00 Atorvastatin Calcium (Lipitor) 10 mg QHS PO Last administered on 06/26/18 22:15; Admin Dose 10 MG; Start 06/24/18 at 21:00 Docusate Sodium (Colace) 100 mg DAILY PO Last administered on 06/26/18 07:48; Admin Dose 100 MG; Start 06/25/18 at 09:00 Folic Acid (Folic Acid) 1 mg DAILY PO Last administered on 06/27/18 08:15; Admin Dose 1 MG; Start 06/25/18 at 09:00 Levothyroxine Sodium (Synthroid) 25 mcg BEFORE BREAKFAST PO Last administered on 06/27/18 08:13; Admin Dose 25 MCG; Start 06/25/18 at 07:00 Metoprolol Tartrate (Lopressor) 12.5 mg BID PO Last administered on 06/27/18 08:18; Admin Dose 12.5 MG; Start 06/24/18 at 21:00 Mirtazapine (Remeron) 15 mg HS PO Last administered on 06/26/18 22:13; Admin Dose 15 MG; Start 06/24/18 at 21:00 Montelukast Sodium (Singulair) 10 mg QHS PO Last administered on 06/26/18 22:11; Admin Dose 10 MG; Start 06/24/18 at 21:00 Ropinirole HCl (Requip) 1 mg HS PO Last administered on 06/26/18 22:10; Admin Dose 1 MG; Start 06/24/18 at 21:00 Sevelamer Carbonate (Renvela) 1.6 gm WITH MEALS PO Last administered on 06/26/18 07:47; Admin Dose 1.6 GM; Start 06/25/18 at 07:55 Tamsulosin HCl (Flomax) 0.4 mg HS PO Last administered on 06/26/18 22:10; Adm in Dose 0.4 MG; Start 06/24/18 at 21:00 Lorazepam (Ativan) 1 mg Q6H PRN PO anxiety; Start 06/24/18 at 20:00 Epoetin Jamar (Epogen (Esrd)) 10,000 units MoWeFr@17 SC Last administered on 06/26/18at 18:46; Admin Dose 10,000 UNITS; Start 06/26/18 at 17:00 Hydralazine HCl (Apresoline) 10 mg Q6H PRN IV ELEVATED BLOOD PRESSURE; Start 06/26/18 at 00:00 Haloperidol (Haldol) 2 mg Q4H PRN IV AGITATION/ANXIETY Last administered on 06/27/18at 00:46; Admin Dose 2 MG; Start 06/26/18 at 01:00 Methylprednisolone Sodium Succinate (Solu-Medrol) 40 mg Q12 IV Last administered on 06/27/18 08:15; Admin Dose 40 MG; Start 06/26/18 at 21:00 Olanzapine (Zyprexa) 5 mg BID PO Last administered on 06/27/18at 08:13; Admin Dose 5 MG; Start 06/26/18 at 21:00 Assessment/Plan Hospital Course (Demo Recall) 1. End-stage renal disease with access AV fistula. The patient had hemodialysis yesterday, tolerated well. Plan is for dialysis again tomorrow for solute clearance. 2. Anemia. Continue to monitor hemoglobin and hematocrit levels. We will give Epogen as needed. 3. Mineral bone disorder, monitor calcium and phosphorus levels. 4. Hypertension. Continue current blood pressure regimen. 5. Acute hypoxemic respiratory failure, etiology is secondary to chronic obstructive pulmonary disease exacerbation, possible pneumonia. Continue medical management. Continue nebulizers. 6. Encephalopathy. Etiology is likely multifactorial, toxic metabolic, uremic. Continue hemodialysis for solute clearance. 7. Anxiety disorder. Continue Ativan. 8. Coronary artery disease. Continue medical management. 9. History of restless leg syndrome. Continue current treatment plan. 10. Benign prostatic hypertrophy. Continue Flomax. 11. Hypothyroidism. Continue Synthroid. SEFERINO NAYAK MD Jun 27, 2018 11:34
--- NOTE | 2018-06-27 11:58 | CONS ---
Consult Date/Type/Reason Admit Date/Time Jun 24, 2018 at 17:49 Initial Consult Date Type of Consult Pulmonary Date/Time of Note DATE: 06/27/18 TIME: 11:57 Subjective Still with significant agitation requiring nasal cannula O2. Objective Vital Signs Date Temp Pulse Resp B/P (MAP) Pulse Ox O2 O2 Flow FiO2 Time Delivery Rate 06/27/18 98.1 91 24 128/77 98 10:00 (94) 06/27/18 Nasal 2.0 09:47 Cannula 06/27/18 32 08:42 Intake and Output 06/26/18 06/26/18 06/27/18 1515:00 23:00 07:00 IntakeIntake Total 0 ml 420 ml OutputOutput Total 1500 ml BalanceBalance 0 ml -1080 ml Exam GENERAL: Well-nourished well-developed gentleman on mechanical ventilation VITAL SIGNS: per chart NECK: Supple. No JVD or lymphadenopathy. CARDIAC EXAM: S1, S2. No added sounds or murmurs. CHEST: clear bilaterally, No added sounds, rales or wheezes ABDOMEN: Soft, nontender. No guarding or rebound. EXTREMITIES: No cyanosis, clubbing or edema. NEUROLOGIC: Unresponsive on mechanical ventilation. Vent Setting Fraction of Inspired Oxygen pe: 32 Results/Medications Result Diagram: 06/27/18 0547 06/27/18 0547 Results 24 hrs Laboratory Tests Test 06/27/18 05:47 White Blood Count 7.4 # Red Blood Count 2.75 L Hemoglobin 8.5 L Hematocrit 27.8 L Mean Corpuscular Volume 101.1 H Mean Corpuscular Hemoglobin 30.9 Mean Corpuscular Hemoglobin Concent 30.6 L Red Cell Distribution Width 14.6 H Platelet Count 202 Mean Platelet Volume 10.3 Immature Granulocytes % 0.500 H Neutrophils % 90.6 H Lymphocytes % 2.7 L Monocytes % 6.1 Eosinophils % 0.0 Basophils % 0.1 Nucleated Red Blood Cells % 0.0 Immature Granulocytes # 0.040 H Neutrophils # 6.7 Lymphocytes # 0.2 L Monocytes # 0.5 Eosinophils # 0.0 Basophils # 0.0 Nucleated Red Blood Cells # 0.0 Sodium Level 136 Potassium Level 5.0 Chloride Level 98 Carbon Dioxide Level 24 Anion Gap 14 H Blood Urea Nitrogen 37 #H Creatinine 4.43 #H Est Glomerular Filtrat Rate mL/min Glucose Level 128 Calcium Level 9.3 Phosphorus Level 6.1 H Magnesium Level 2.2 Medications Current Medications Dextrose/Sodium Chloride 1,000 ml @ 35 mls/hr Q24H IV Last administered on 06/27/18 11:17; Admin Dose 35 MLS/HR; Start 06/24/18 at 19:46 IV Flush (NS 3 ml) 3 ml PER PROTOCOL IV ; Start 06/24/18 at 20:00 Lorazepam (Ativan) 0.5 mg Q3H PRN IV .ANXIETY Last administered on 06/27/18 08:16; Admin Dose 0.5 MG; Start 06/24/18 at 20:00 Ondansetron HCl (Zofran Inj) 4 mg Q6H PRN IV NAUSEA/VOMITING Last administered on 06/26/18 00:28; Admin Dose 4 MG; Start 06/24/18 at 20:00 Acetaminophen (Tylenol Tab) 650 mg Q6H PRN PO .PAIN 1-3 OR TEMP; Start 06/24/18 at 20:00 Morphine Sulfate (morphine) 2 mg Q4H PRN IV .PAIN 7-10 Last administered on 06/26/18 03:37; Admin Dose 2 MG; Start 06/24/18 at 20:00 Docusate Sodium (Colace) 100 mg Q12H PRN PO .CONSTIPATION; Start 06/24/18 at 20:00 Magnesium Hydroxide (Milk Of Mag) 30 ml DAILY PRN PO .CONSTIPATION; Start 06/24/18 at 20:00 Pantoprazole (Protonix Iv) 40 mg DAILY@06 IV Last administered on 06/26/18 05:48; Admin Dose 40 MG; Start 06/25/18 at 06:00 Heparin Sodium (Porcine) (Heparin (5000 Units/1ml)) 5,000 unit Q12 SC Last administered on 06/27/18 08:28; Admin Dose 5,000 UNIT; Start 06/24/18 at 21:00 Albuterol/ Ipratropium (Duoneb) 3 ml Q4H RESP THERAPY NEB Last administered on 06/27/18 08:41; Admin Dose 3 ML; Start 06/24/18 at 21:00 Albuterol/ Ipratropium (Duoneb) 3 ml Q2H RESP THERAPY PRN NEB SHORTNESS OF BREATH; Start 06/24/18 at 20:00 Atorvastatin Calcium (Lipitor) 10 mg QHS PO Last administered on 06/26/18 22:15; Admin Dose 10 MG; Start 06/24/18 at 21:00 Docusate Sodium (Colace) 100 mg DAILY PO Last administered on 06/26/18 07:48; Admin Dose 100 MG; Start 06/25/18 at 09:00 Folic Acid (Folic Acid) 1 mg DAILY PO Last administered on 06/27/18 08:15; Admin Dose 1 MG; Start 06/25/18 at 09:00 Levothyroxine Sodium (Synthroid) 25 mcg BEFORE BREAKFAST PO Last administered on 06/27/18 08:13; Admin Dose 25 MCG; Start 06/25/18 at 07:00 Metoprolol Tartrate (Lopressor) 12.5 mg BID PO Last administered on 06/27/18 08:18; Admin Dose 12.5 MG; Start 06/24/18 at 21:00 Mirtazapine (Remeron) 15 mg HS PO Last administered on 06/26/18 22:13; Admin Dose 15 MG; Start 06/24/18 at 21:00 Montelukast Sodium (Singulair) 10 mg QHS PO Last administered on 06/26/18 22:11; Admin Dose 10 MG; Start 06/24/18 at 21:00 Ropinirole HCl (Requip) 1 mg HS PO Last administered on 06/26/18 22:10; Admin Dose 1 MG; Start 06/24/18 at 21:00 Sevelamer Carbonate (Renvela) 1.6 gm WITH MEALS PO Last administered on 06/26/18 07:47; Admin Dose 1.6 GM; Start 06/25/18 at 07:55 Tamsulosin HCl (Flomax) 0.4 mg HS PO Last administered on 06/26/18 22:10; Admin Dose 0.4 MG; Start 06/24/18 at 21:00 Lorazepam (Ativan) 1 mg Q6H PRN PO anxiety; Start 06/24/18 at 20:00 Epoetin Jamar (Epogen (Esrd)) 10,000 units MoWeFr@17 SC Last administered on 06/26/18 18:46; Admin Dose 10,000 UNITS; Start 06/26/18 at 17:00 Hydralazine HCl (Apresoline) 10 mg Q6H PRN IV ELEVATED BLOOD PRESSURE; Start 06/26/18 at 00:00 Haloperidol (Haldol) 2 mg Q4H PRN IV AGITATION/ANXIETY Last administered on 06/27/18at 00:46; Admin Dose 2 MG; Start 06/26/18 at 01:00 Methylprednisolone Sodium Succinate (Solu-Medrol) 40 mg Q12 IV Last administered on 06/27/18at 08:15; Admin Dose 40 MG; Start 06/26/18 at 21:00 Olanzapine (Zyprexa) 5 mg BID PO Last administered on 06/27/18at 08:13; Admin Dose 5 MG; Start 06/26/18 at 21:00 Assessment/Plan Hospital Course (Demo Recall) IMPRESSION 1. Acute on chronic hypoxemic and hypercapnic respiratory failure secondary to chronic obstructive pulmonary disease exacerbation. 2. Underlying significant encephalopathy complicated by likely dementia and psychiatric disease. 3. End-stage renal failure on hemodialysis; however no evidence of volume overload on chest x-ray. 4. Anemia. Plan 1. Steroid taper. We will decrease dose may be contributing to his encephalopathy 2. Bronchodilators. 3. P.r.n. noninvasive positive pressure ventilation. 4. Aspiration precautions. 5. DVT and GI prophylaxis. 6. Continue hemodialysis as tolerated BIA VALDIVIA MD, [facility] Jun 27, 2018 11:58
--- NOTE | 2018-06-27 16:10 | PN ---
DATE: 06/26/2018 SUBJECTIVE: The patient seen, remains very anxious, but overall alert, tolerating full-liquid diet w ell. Can advance his diet as he tolerates applesauce well. Remains anxious, partly may be due to So savita-Medrol, which we are decreasing. PHYSICAL EXAMINATION: VITAL SIGNS: Temperature 98.6, pulse 97, respirations 25, blood pressure 129/69, saturation 97% on 3 liters. GENERAL: The patient remains confused, pale. CARDIAC: S1 and S2. LUNGS: Decreased bilaterally. ABDOMEN: Soft, nontender. EXTREMITIES: No clubbing, cyanosis, or edema. LABORATORY DATA: White count 7.4, hemoglobin 8.5, hematocrit 28, platelet count of 202. Neutrophils 93%. Chemistry: Sodium 136, potassium 5.0, chloride 98, bicarbonate 24, BUN is 37, creatinine 4.43 , glucose 128. MRSA screening negative. MEDICATIONS: 1. Solu-Medrol 40 IV daily. 2. Zyprexa 5 mg b.i.d. 3. Epogen every Friday, Friday and Friday. 4. Haldol 2 mg IV q.4 p.r.n. 5. Hydralazine p.r.n. 6. Colace 100 daily. 7. Folic acid 1 mg daily. 8. Renvela 1.6 with meals. 9. Synthroid 25 mcg daily. 10. Heparin 5000 q.12. 11. DuoNebs as directed q.4. 12. Lipitor 10 mg at bedtime. 13. Lopressor 12.5 b.i.d. 14. Remeron 15 at bedtime. 15. Singulair 10 mg at bedtime. 16. Requip 1 mg at bedtime. 17. Flomax 0.4 at bedtime. 18. Ativan p.r.n. 19. Zofran p.r.n. 20. Tylenol p.r.n. 21. Morphine p.r.n. 22. Colace p.r.n. 23. Milk of magnesia p.r.n. 24. DuoNebs p.r.n. 25. Ativan p.r.n. 26. D5 half-normal saline at 35 mL an hour. ASSESSMENT AND PLAN: This is a 72-year-old Samoan-speaking male with history of end-stage renal dis ease, chronic obstructive pulmonary disease, anxiety disorder, presents with encephalopathy and hyper capnic respiratory failure. 1. Respiratory: Continue at bedtime BiPAP and p.r.n. Taper down steroids. Breathing treatment as needed. 2. Cardiovascular: Continue deep venous thrombosis prophylaxis. Vital signs are stable. 3. Infectious disease, off antibiotics. Status post recent treatment for pneumonia. 4. Encephalopathy, multifactorial. Continue Zyprexa. Taper down steroids. Observe. Continue p.r. n. Ativan and Haldol. 5. Hypothyroidism. Continue Synthroid. 6. Diet as tolerated. 7. Tendency for hypoglycemia, on D5. Advance diet and see how his sugars are. 8. Infectious disease: Dialysis times a week. 9. Restless leg syndrome. Continue Requip. 10. The patient has a sitter for close monitoring due to risk of fall. 11. Continue Flomax for BPH. 12. We will follow closely. Case discussed with nursing staff. Dictated By: LEONORA SNIDER/VIKTOR Conf#: [id number] DID#: [id number] CC: LEONORA LOUISE MD;*End*
[2018-06-27] MEDS: ROPINIROLE 1 MG TAB PO SCH (21:00)
[2018-06-27] MEDS: MONTELUKAST 10 MG TAB PO SCH (21:00)
[2018-06-27] MEDS: MIRTAZAPINE 15 MG TAB PO SCH (21:00)
[2018-06-27] MEDS: TAMSULOSIN (SR) 0.4 MG CAP PO SCH (21:00)
[2018-06-27] MEDS: ATORVASTATIN 10 MG TAB PO SCH (21:00)
[2018-06-28] VITALS (19 sets, daily range): BP systolic 94–143; BP diastolic 50–93; PULSE 75–95; RESP 15–29
[2018-06-28] MEDS: MONTELUKAST 10 MG TAB PO SCH ×2 (00:30→21:22)
[2018-06-28] MEDS: TAMSULOSIN (SR) 0.4 MG CAP PO SCH ×2 (00:30→21:29)
[2018-06-28] MEDS: ROPINIROLE 1 MG TAB PO SCH ×2 (00:30→21:22)
[2018-06-28] MEDS: METOPROLOL 25 MG TAB PO SCH ×3 (00:30→21:30)
[2018-06-28] MEDS: ATORVASTATIN 10 MG TAB PO SCH ×2 (00:30→21:22)
[2018-06-28] MEDS: OLANZAPINE 5 MG TAB PO SCH ×4 (00:30→21:22)
[2018-06-28] MEDS: MIRTAZAPINE 15 MG TAB PO SCH ×2 (00:30→21:22)
[2018-06-28] MEDS: ALBUTEROL/IPRATROPIUM (NEB) 3 ML AMP NEB SCH ×6 (00:37→21:35)
[2018-06-28] MEDS: LORAZEPAM 2 MG INJ IV PRN ×3 (02:36→22:11)
[2018-06-28] MEDS: PANTOPRAZOLE 40 MG INJ IV SCH (05:20)
[2018-06-28] MEDS: LEVOTHYROXINE 25 MCG TAB PO SCH (08:03)
[2018-06-28] MEDS: SEVELAMER CARBONATE 0.8 GM PKT PO SCH ×3 (08:11→17:55)
[2018-06-28] MEDS: HEPARIN 5,000 UNIT/1 ML VIAL SC SCH ×2 (08:26→21:33)
[2018-06-28] MEDS: FOLIC ACID 1 MG TAB PO SCH (09:00)
[2018-06-28] MEDS ORDERED: METHYLPREDNISOLONE 40 MG INJ IV SCH (09:00)
[2018-06-28] MEDS: DOCUSATE SODIUM 100 MG CAP PO SCH (09:00)
--- NOTE | 2018-06-28 10:04 | CONS ---
Consult Date/Type/Reason Admit Date/Time Jun 24, 2018 at 17:49 Initial Consult Date Date/Time of Note DATE: 06/28/18 TIME: 10:02 Subjective The patient remains confused with periods of agitation, had a sitter overnight. refused medication. No other events noted. tolerated hd on friday. OBJECTIVE: HEENT: Head is normocephalic. Pupils are reactive to light. NECK: Supple. HEART: Regular rate. LUNGS: Show diminished breath sounds at the base. ABDOMEN: Soft, nontender to palpation. No rebound or guarding. EXTREMITIES: Negative for clubbing, cyanosis, no edema. DERMATOLOGIC: No rashes. MUSCULOSKELETAL: No joint effusion. NEUROLOGIC: No change in exam. Objective Vitals Vital Signs Date Temp Pulse Resp B/P (MAP) Pulse Ox O2 O2 Flow FiO2 Time Delivery Rate 06/28/18 82 08:19 06/28/18 98.2 18 133/75 100 Nasal 08:00 (94) Cannula 06/28/18 3.0 07:52 06/27/18 32 16:49 Intake and Output 06/27/18 06/27/18 06/28/18 1515:00 23:00 07:00 IntakeIntake Total 140 ml 725 ml 400 ml BalanceBalance 140 ml 725 ml 400 ml Results/Medications Result Diagram: 06/28/18 0608 06/28/18 0608 Results 24 hrs Laboratory Tests Test 06/28/18 06:08 White Blood Count 6.5 Red Blood Count 2.55 L Hemoglobin 7.9 L Hematocrit 25.7 L Mean Corpuscular Volume 100.8 Mean Corpuscular Hemoglobin 31.0 Mean Corpuscular Hemoglobin Concent 30.7 L Red Cell Distribution Width 14.6 H Platelet Count 194 Mean Platelet Volume 10.0 Immature Granulocytes % 1.700 H Neutrophils % 79.7 H Lymphocytes % 7.1 L Monocytes % 11.1 H Eosinophils % 0.2 Basophils % 0.2 Nucleated Red Blood Cells % 0.5 H Immature Granulocytes # 0.110 H Neutrophils # 5.2 Lymphocytes # 0.5 L Monocytes # 0.7 Eosinophils # 0.0 Basophils # 0.0 Nucleated Red Blood Cells # 0.0 Sodium Level 138 Potassium Level 4.8 Chloride Level 101 Carbon Dioxide Level 24 Anion Gap 13 Blood Urea Nitrogen 61 H Creatinine 7.01 #H Est Glomerular Filtrat Rate mL/min Glucose Level 108 Calcium Level 9.4 Phosphorus Level 7.1 H Magnesium Level 2.2 Home Meds Active Scripts Mirtazapine* (Mirtazapine*) 15 Mg Tablet, 15 MG PO HS for 30 Days, #60 TAB take 15mg for 1 week and increase to 30mg at night Prov:HANK LUO MD 06/12/18 Clonazepam* (Clonazepam*) 1 Mg Tablet, 1 MG PO BID PRN for ANXIETY for 10 Days, #20 TAB Prov:HANK LUO MD 06/12/18 Reported Medications Docusate Sodium* (Docusate Sodium*) 100 Mg Capsule, 100 MG PO DAILY, #30 CAP 06/01/18 Tamsulosin Hcl* (Flomax*) 0.4 Mg Cap.er.24h, 0.4 MG PO HS, CAP 06/01/18 Ropinirole Hcl* (Ropinirole Hcl*) 1 Mg Tablet, 1 MG PO HS, TAB 06/01/18 Metoprolol Tartrate* (Lopressor*) 25 Mg Tab, 12.5 MG PO BID, #60 TAB 06/01/18 Budesonide-Formoterol Fumarate* (Symbicort*) 160-4.5 Hfa.aer.ad, 2 PUFF INHALATION BID, #1 EACH 06/01/18 Atorvastatin Calcium (Atorvastatin Calcium) 10 Mg Tablet, 10 MG PO QHS, #30 TAB 06/01/18 Aspirin-Dipyridamole* (Aggrenox*) 25-200 Mg Cpmp.12hr, 1 CAP PO BID, CAP 05/11/18 Sevelamer Carbonate* (Renvela*) 800 Mg Tablet, 1600 MG PO WITH MEALS, TAB 05/11/18 Montelukast Sodium* (Montelukast Sodium*) 10 Mg Tablet, 10 MG PO QHS, #30 TAB 05/11/18 Folic Acid* (Folic Acid*) 1 Mg Tablet, 1 MG PO DAILY, TAB 05/11/18 Levothyroxine Sodium* (Levothyroxine Sodium*) 25 Mcg Tablet, 25 MCG PO BEFORE BREAKFAST, #30 TAB 05/11/18 Febuxostat* (Uloric*) 40 Mg Tablet, 40 MG PO DAILY, TAB 05/11/18 Discontinued Scripts Levofloxacin* (Levaquin*) 500 Mg Tablet, 500 MG PO Q48H for 1 Day, #1 TAB take on 06/14 Prov:HANK LUO MD 06/12/18 Albuterol Sulfate (Proair Respiclick) 90 Mcg Aer.pow.ba, 2 PUFFS INHALATION Q6 PRN for SHORTNESS OF BREATH, #1 BOTTLE 5 Refills Prov:JENELLE SIMPSON MD 05/14/18 Medications Current Medications Dextrose/Sodium Chloride 1,000 ml @ 35 mls/hr Q24H IV Last administered on 06/27/18at 11:17; Admin Dose 35 MLS/HR; Start 06/24/18 at 19:46 IV Flush (NS 3 ml) 3 ml PER PROTOCOL IV ; Start 06/24/18 at 20:00 Lorazepam (Ativan) 0.5 mg Q3H PRN IV .ANXIETY Last administered on 06/28/18at 02:36; Admin Dose 0.5 MG; Start 06/24/18 at 20:00 Ondansetron HCl (Zofran Inj) 4 mg Q6H PRN IV NAUSEA/VOMITING Last administered on 06/26/18at 00:28; Admin Dose 4 MG; Start 06/24/18 at 20:00 Acetaminophen (Tylenol Tab) 650 mg Q6H PRN PO .PAIN 1-3 OR TEMP; Start 06/24/18 at 20:00 Morphine Sulfate (morphine) 2 mg Q4H PRN IV .PAIN 7-10 Last administered on 06/26/18at 03:37; Admin Dose 2 MG; Start 06/24/18 at 20:00 Docusate Sodium (Colace) 100 mg Q12H PRN PO .CONSTIPATION; Start 06/24/18 at 20:00 Magnesium Hydroxide (Milk Of Mag) 30 ml DAILY PRN PO .CONSTIPATION; Start 06/24/18 at 20:00 Pantoprazole (Protonix Iv) 40 mg DAILY@06 IV Last administered on 06/28/18at 05:20; Admin Dose 40 MG; Start 06/25/18 at 06:00 Heparin Sodium (Porcine) (Heparin (5000 Units/1ml)) 5,000 unit Q12 SC Last administered on 06/28/18at 08:26; Admin Dose 5,000 UNIT; Start 06/24/18 at 21:00 Albuterol/ Ipratropium (Duoneb) 3 ml Q4H RESP THERAPY NEB Last administered on 06/28/18 04:17; Admin Dose 3 ML; Start 06/24/18 at 21:00 Albuterol/ Ipratropium (Duoneb) 3 ml Q2H RESP THERAPY PRN NEB SHORTNESS OF BREATH; Start 06/24/18 at 20:00 Atorvastatin Calcium (Lipitor) 10 mg QHS PO Last administered on 06/28/18 00:30; Admin Dose 10 MG; Start 06/24/18 at 21:00 Docusate Sodium (Colace) 100 mg DAILY PO Last administered on 06/26/18 07:48; Admin Dose 100 MG; Start 06/25/18 at 09:00 Folic Acid (Folic Acid) 1 mg DAILY PO Last administered on 06/27/18 08:15; Admin Dose 1 MG; Start 06/25/18 at 09:00 Levothyroxine Sodium (Synthroid) 25 mcg BEFORE BREAKFAST PO Last administered on 06/28/18 08:03; Admin Dose 25 MCG; Start 06/25/18 at 07:00 Metoprolol Tartrate (Lopressor) 12.5 mg BID PO Last administered on 06/28/18 00:30; Admin Dose 12.5 MG; Start 06/24/18 at 21:00 Mirtazapine (Remeron) 15 mg HS PO Last administered on 06/28/18 00:30; Admin Dose 15 MG; Start 06/24/18 at 21:00 Montelukast Sodium (Singulair) 10 mg QHS PO Last administered on 06/28/18 00:30; Admin Dose 10 MG; Start 06/24/18 at 21:00 Ropinirole HCl (Requip) 1 mg HS PO Last administered on 06/28/18 00:30; Admin Dose 1 MG; Start 06/24/18 at 21:00 Sevelamer Carbonate (Renvela) 1.6 gm WITH MEALS PO Last administered on 06/28/18 08:11; Admin Dose 1.6 GM; Start 06/25/18 at 07:55 Tamsulosin HCl (Flomax) 0.4 mg HS PO Last administered on 06/28/18 00:30; Admin Dose 0.4 MG; Start 06/24/18 at 21:00 Lorazepam (Ativan) 1 mg Q6H PRN PO anxiety; Start 06/24/18 at 20:00 Epoetin Jamar (Epogen (Esrd)) 10,000 units MoWeFr@17 SC Last administered on 06/26/18at 18:46; Admin Dose 10,000 UNITS; Start 06/26/18 at 17:00 Hydralazine HCl (Apresoline) 10 mg Q6H PRN IV ELEVATED BLOOD PRESSURE; Start 06/26/18 at 00:00 Haloperidol (Haldol) 2 mg Q4H PRN IV AGITATION/ANXIETY Last administered on 06/27/18at 23:13; Admin Dose 2 MG; Start 06/26/18 at 01:00 Olanzapine (Zyprexa) 5 mg BID PO Last administered on 06/28/18at 00:30; Admin Dose 5 MG; Start 06/26/18 at 21:00 Methylprednisolone Sodium Succinate (Solu-Medrol) 40 mg DAILY IV Last administered on 06/28/18at 08:15; Admin Dose 40 MG; Start 06/28/18 at 09:00 Assessment/Plan Hospital Course (Demo Recall) 1. End-stage renal disease with access AV fistula. The patient had hemodialysis friday, tolerated well. Plan is for dialysis again tomorrow for solute clearance. 2. Anemia. Continue to monitor hemoglobin and hematocrit levels. We will give Epogen as needed. 3. Mineral bone disorder, monitor calcium and phosphorus levels. 4. Hypertension. Continue current blood pressure regimen. 5. Acute hypoxemic respiratory failure, etiology is secondary to chronic obstructive pulmonary disease exacerbation, possible pneumonia. Continue medical management. Continue nebulizers. 6. Encephalopathy. Etiology is likely multifactorial, toxic metabolic, uremic. Continue hemodialysis for solute clearance. 7. Anxiety disorder. Continue Ativan. 8. Coronary artery disease. Continue medical management. 9. History of restless leg syndrome. Continue current treatment plan. 10. Benign prostatic hypertrophy. Continue Flomax. 11. Hypothyroidism. Continue Synthroid. SEFERINO NAYAK MD Jun 28, 2018 10:04
[2018-06-28] MEDS: morphine 2 MG INJ IV PRN (12:33)
--- NOTE | 2018-06-28 12:58 | CONS ---
Consult Date/Type/Reason Admit Date/Time Jun 24, 2018 at 17:49 Initial Consult Date Type of Consult Pulmonary Date/Time of Note DATE: 06/28/18 TIME: 12:57 Subjective Confused but no resp distress. Objective Vital Signs Date Temp Pulse Resp B/P (MAP) Pulse Ox O2 O2 Flow FiO2 Time Delivery Rate 06/28/18 92 12:23 06/28/18 98.1 21 121/57 100 Nasal 3.0 10:05 (78) Cannula 06/27/18 32 16:49 Intake and Output 06/27/18 06/27/18 06/28/18 1515:00 23:00 07:00 IntakeIntake Total 140 ml 725 ml 400 ml BalanceBalance 140 ml 725 ml 400 ml Exam GENERAL: Well-nourished well-developed gentleman on mechanical ventilation VITAL SIGNS: per chart NECK: Supple. No JVD or lymphadenopathy. CARDIAC EXAM: S1, S2. No added sounds or murmurs. CHEST: clear bilaterally, No added sounds, rales or wheezes ABDOMEN: Soft, nontender. No guarding or rebound. EXTREMITIES: No cyanosis, clubbing or edema. NEUROLOGIC: Unresponsive on mechanical ventilation. Vent Setting Fraction of Inspired Oxygen pe: 32 Results/Medications Result Diagram: 06/28/18 0608 06/28/18 0608 Results 24 hrs Laboratory Tests Test 06/28/18 06:08 White Blood Count 6.5 Red Blood Count 2.55 L Hemoglobin 7.9 L Hematocrit 25.7 L Mean Corpuscular Volume 100.8 Mean Corpuscular Hemoglobin 31.0 Mean Corpuscular Hemoglobin Concent 30.7 L Red Cell Distribution Width 14.6 H Platelet Count 194 Mean Platelet Volume 10.0 Immature Granulocytes % 1.700 H Neutrophils % 79.7 H Lymphocytes % 7.1 L Monocytes % 11.1 H Eosinophils % 0.2 Basophils % 0.2 Nucleated Red Blood Cells % 0.5 H Immature Granulocytes # 0.110 H Neutrophils # 5.2 Lymphocytes # 0.5 L Monocytes # 0.7 Eosinophils # 0.0 Basophils # 0.0 Nucleated Red Blood Cells # 0.0 Sodium Level 138 Potassium Level 4.8 Chloride Level 101 Carbon Dioxide Level 24 Anion Gap 13 Blood Urea Nitrogen 61 H Creatinine 7.01 #H Est Glomerular Filtrat Rate mL/min Glucose Level 108 Calcium Level 9.4 Phosphorus Level 7.1 H Magnesium Level 2.2 Medications Current Medications Dextrose/Sodium Chloride 1,000 ml @ 35 mls/hr Q24H IV Last administered on 06/27/18 11:17; Admin Dose 35 MLS/HR; Start 06/24/18 at 19:46 IV Flush (NS 3 ml) 3 ml PER PROTOCOL IV ; Start 06/24/18 at 20:00 Lorazepam (Ativan) 0.5 mg Q3H PRN IV .ANXIETY Last administered on 06/28/18 12:10; Admin Dose 0.5 MG; Start 06/24/18 at 20:00 Ondansetron HCl (Zofran Inj) 4 mg Q6H PRN IV NAUSEA/VOMITING Last administered on 06/26/18 00:28; Admin Dose 4 MG; Start 06/24/18 at 20:00 Acetaminophen (Tylenol Tab) 650 mg Q6H PRN PO .PAIN 1-3 OR TEMP; Start 06/24/18 at 20:00 Morphine Sulfate (morphine) 2 mg Q4H PRN IV .PAIN 7-10 Last administered on 06/28/18 12:33; Admin Dose 2 MG; Start 06/24/18 at 20:00 Docusate Sodium (Colace) 100 mg Q12H PRN PO .CONSTIPATION; Start 06/24/18 at 20:00 Magnesium Hydroxide (Milk Of Mag) 30 ml DAILY PRN PO .CONSTIPATION; Start 06/24/18 at 20:00 Pantoprazole (Protonix Iv) 40 mg DAILY@06 IV Last administered on 06/28/18 05:20; Admin Dose 40 MG; Start 06/25/18 at 06:00 Heparin Sodium (Porcine) (Heparin (5000 Units/1ml)) 5,000 unit Q12 SC Last administered on 06/28/18 08:26; Admin Dose 5,000 UNIT; Start 06/24/18 at 21:00 Albuterol/ Ipratropium (Duoneb) 3 ml Q4H RESP THERAPY NEB Last administered on 06/28/18 04:17; Admin Dose 3 ML; Start 06/24/18 at 21:00 Albuterol/ Ipratropium (Duoneb) 3 ml Q2H RESP THERAPY PRN NEB SHORTNESS OF BREATH; Start 06/24/18 at 20:00 Atorvastatin Calcium (Lipitor) 10 mg QHS PO Last administered on 06/28/18 00:30; Admin Dose 10 MG; Start 06/24/18 at 21:00 Docusate Sodium (Colace) 100 mg DAILY PO Last administered on 06/26/18 07:48; Admin Dose 100 MG; Start 06/25/18 at 09:00 Folic Acid (Folic Acid) 1 mg DAILY PO Last administered on 06/27/18 08:15; Admin Dose 1 MG; Start 06/25/18 at 09:00 Levothyroxine Sodium (Synthroid) 25 mcg BEFORE BREAKFAST PO Last administered on 06/28/18 08:03; Admin Dose 25 MCG; Start 06/25/18 at 07:00 Metoprolol Tartrate (Lopressor) 12.5 mg BID PO Last administered on 06/28/18 00:30; Admin Dose 12.5 MG; Start 06/24/18 at 21:00 Mirtazapine (Remeron) 15 mg HS PO Last administered on 06/28/18 00:30; Admin Dose 15 MG; Start 06/24/18 at 21:00 Montelukast Sodium (Singulair) 10 mg QHS PO Last administered on 06/28/18 00:30; Admin Dose 10 MG; Start 06/24/18 at 21:00 Ropinirole HCl (Requip) 1 mg HS PO Last administered on 06/28/18 00:30; Admin Dose 1 MG; Start 06/24/18 at 21:00 Sevelamer Carbonate (Renvela) 1.6 gm WITH MEALS PO Last administered on 06/28/18 08:11; Admin Dose 1.6 GM; Start 06/25/18 at 07:55 Tamsulosin HCl (Flomax) 0.4 mg HS PO Last administered on 06/28/18 00:30; Admin Dose 0.4 MG; Start 06/24/18 at 21:00 Lorazepam (Ativan) 1 mg Q6H PRN PO anxiety; Start 06/24/18 at 20:00 Epoetin Jamar (Epogen (Esrd)) 10,000 units MoWeFr@17 SC Last administered on 06/26/18 18:46; Admin Dose 10,000 UNITS; Start 06/26/18 at 17:00 Hydralazine HCl (Apresoline) 10 mg Q6H PRN IV ELEVATED BLOOD PRESSURE; Start 06/26/18 at 00:00 Haloperidol (Haldol) 2 mg Q4H PRN IV AGITATION/ANXIETY Last administered on 06/27/18at 23:13; Admin Dose 2 MG; Start 06/26/18 at 01:00 Olanzapine (Zyprexa) 5 mg BID PO Last administered on 06/28/18at 00:30; Admin Dose 5 MG; Start 06/26/18 at 21:00 Methylprednisolone Sodium Succinate (Solu-Medrol) 40 mg DAILY IV Last administered on 06/28/18at 08:15; Admin Dose 40 MG; Start 06/28/18 at 09:00 Assessment/Plan Hospital Course (Demo Recall) IMPRESSION 1. Acute on chronic hypoxemic and hypercapnic respiratory failure secondary to chronic obstructive pulmonary disease exacerbation. 2. Underlying significant encephalopathy complicated by likely dementia and psychiatric disease. 3. End-stage renal failure on hemodialysis; however no evidence of volume overload on chest x-ray. 4. Anemia. Plan 1. Steroid taper. will dc tomorrow. 2. Bronchodilators. 3. P.r.n. noninvasive positive pressure ventilation. 4. Aspiration precautions. 5. DVT and GI prophylaxis. 6. Continue hemodialysis as tolerated [facility]DIVIA [facility] Jun 28, 2018 12:58
--- NOTE | 2018-06-28 13:56 | PN ---
DATE: 06/28/2018 SUBJECTIVE: The patient seen, remains restless on restraints, difficult to arouse, moving on the bed . Case discussed with nursing staff. The patient just received morphine per report. Try to give le ss pain meds, less sedative, but he was recommended to be started on antipsychotics at the outside [facility]. PHYSICAL EXAMINATION: VITAL SIGNS: Temperature 98.1, pulse 92, respirations 21, blood pressure 120/57, saturation 100% on 3 liters. GENERAL: The patient in no acute distress. The patient is pale, frail. CARDIOVASCULAR: S1, S2, regular rate. LUNGS: Clear. ABDOMEN: Soft, nontender. EXTREMITIES: No clubbing. Patient moving all extremities. LABORATORY DATA: White count 6.5, hemoglobin 7.9, hematocrit 26, platelets 194, neutrophils 80%, lym phocytes 7%. Chemistry: Sodium is 138, potassium 4.8, chloride 101, bicarbonate 24, BUN is 61, crea tinine 7.01, glucose 108. MRSA screening was negative. MEDICATIONS: 1. Solu-Medrol 40 IV daily. We will discontinue it. 2. Zyprexa 5 mg b.i.d. 3. Epogen every Friday, Friday and Friday mg IV q.4h. p.r.n. 4. Hydralazine p.r.n. 5. Colace 100 daily. 6. Folic acid 1 mg daily. 7. Renvela 1.6 grams t.i.d. meals. 8. Synthroid 25 mg daily. 9. Heparin 5000 q.12h. 10. DuoNebs every 4 hours. 11. Lipitor 10 mg at bedtime. 12. Lopressor 12.5 b.i.d. 13. Remeron 15 q.h.s. 14. Singulair 20 mg at bedtime. 15. Requip 1 mg at bedtime. 16. Flomax 0.4 at bedtime. 17. Ativan. 18. Zofran. 19. Tylenol. 20. Morphine p.r.n. 21. Colace. 22. Milk of magnesia 20. 23. Ativan p.r.n. 24. D5 half normal at 35 mL an hour. ASSESSMENT AND PLAN: This is a 72-year-old Bhutanese-speaking male with history of end-stage renal dis ease, chronic obstructive pulmonary disease, anxiety disorder, presented with encephalopathy, hyperca pnic respiratory failure. 1. Respiratory. Continue p.r.n. BiPAP at night. Discontinue steroids. Continue breathing treatmen t. 2. Cardiovascular. Continue deep venous thrombosis prophylaxis. Vitals are otherwise stable. 3. Infectious disease, off antibiotics, status post recent treatment for pneumonia. 4. Encephalopathy, multifactorial. Discontinue steroids. Try to avoid Ativan or morphine. Continu e antipsychotics. 5. Hypothyroidism. Continue Synthroid. 6. Diet as tolerated. 7. Tendency for hypoglycemia on low dose D5 half normal. 8. Restless leg syndrome, on Requip. 9. Sitter. In restraints for safety. 10. Benign prostatic hypertrophy, on Flomax. 11. Continue to monitor. Continue physical therapy soon. 12. Anemia, Currently, no need for transfusion. Epogen per nephrology and transfuse p.r.n. 13. End-stage renal disease. Next dialysis tomorrow. We will follow electrolytes. Dictated By: LEONORA SNIDER/VIKTOR Conf#: [id number] DID#: [id number]
[2018-06-28] MEDS: DEXTROSE 5%-0.45% NACL 1,000 ML IV SCH (17:00)
[2018-06-29] VITALS (33 sets, daily range): BP systolic 96–145; BP diastolic 41–97; PULSE 61–96; RESP 17–22
[2018-06-29] MEDS: HALOPERIDOL 5 MG INJ IV PRN ×2 (00:09→09:05)
[2018-06-29] MEDS: ALBUTEROL/IPRATROPIUM (NEB) 3 ML AMP NEB SCH ×6 (01:38→21:47)
[2018-06-29] MEDS: LORAZEPAM 2 MG INJ IV PRN ×3 (04:01→22:08)
[2018-06-29] MEDS: PANTOPRAZOLE 40 MG INJ IV SCH (05:58)
[2018-06-29] MEDS: SEVELAMER CARBONATE 0.8 GM PKT PO SCH ×3 (09:59→17:23)
[2018-06-29] MEDS: LEVOTHYROXINE 25 MCG TAB PO SCH ×2 (09:59→13:32)
[2018-06-29] MEDS: HEPARIN 5,000 UNIT/1 ML VIAL SC SCH ×2 (10:04→21:58)
[2018-06-29] MEDS: METOPROLOL 25 MG TAB PO SCH ×2 (13:33→21:55)
[2018-06-29] MEDS: FOLIC ACID 1 MG TAB PO SCH (13:33)
[2018-06-29] MEDS: DOCUSATE SODIUM 100 MG CAP PO SCH (13:33)
[2018-06-29] MEDS: OLANZAPINE 5 MG TAB PO SCH ×2 (13:33→21:54)
--- NOTE | 2018-06-29 14:37 | CONS ---
Consult Date/Type/Reason Admit Date/Time Jun 24, 2018 at 17:49 Initial Consult Date Type of Consult Pulmonary Date/Time of Note DATE: 06/29/18 TIME: 14:32 Objective Vital Signs Date Temp Pulse Resp B/P (MAP) Pulse Ox O2 O2 Flow FiO2 Time Delivery Rate 06/29/18 3.0 13:40 06/29/18 93 22 98 Nasal 13:39 Cannula 06/29/18 103/55 12:25 (71) 06/29/18 98.7 12:00 06/27/18 32 16:49 Intake and Output 06/28/18 06/28/18 06/29/18 1515:00 23:00 07:00 IntakeIntake Total 830 ml 350 ml OutputOutput Total 750 ml BalanceBalance 830 ml -400 ml Vent Setting Fraction of Inspired Oxygen pe: 32 Results/Medications Result Diagram: 06/29/18 0802 06/29/18 0602 Results 24 hrs Laboratory Tests Test 06/29/18 01:00 06/29/18 06:02 06/29/18 08:02 Urine Color YELLOW Urine Clarity CLOUDY A Urine pH 5.0 Urine Specific Elizabeth 1.011 Urine Ketones TRACE A Urine Nitrite POSITIVE A Urine Bilirubin NEGATIVE Urine Urobilinogen NEGATIVE Urine Leukocyte Esterase NEGATIVE Urine Microscopic RBC 24 H Urine Microscopic WBC 12 H Urine Squamous Epithelial Cells FEW Urine Amorphous Crystals FEW A Urine Bacteria FEW A Urine Hemoglobin 2+ H Urine Glucose 1+ H Urine Total Protein 2+ H Sodium Level 137 Potassium Level 5.3 H Chloride Level 101 Carbon Dioxide Level 23 Anion Gap 13 Blood Urea Nitrogen 77 H Creatinine 8.59 H Est Glomerular Filtrat Rate mL/min Glucose Level 105 Calcium Level 9.2 Phosphorus Level 7.7 H Magnesium Level 2.3 White Blood Count 7.0 Red Blood Count 2.58 L Hemoglobin 8.0 L Hematocrit 26.2 L Mean Corpuscular Volume 101.6 H Mean Corpuscular Hemoglobin 31.0 Mean Corpuscular Hemoglobin Concent 30.5 L Red Cell Distribution Width 14.7 H Platelet Count 212 Mean Platelet Volume 10.0 Immature Granulocytes % 2.000 H Neutrophils % 81.3 H Lymphocytes % 7.3 L Monocytes % 8.7 Eosinophils % 0.6 Basophils % 0.1 Nucleated Red Blood Cells % 0.4 H Immature Granulocytes # 0.140 H Neutrophils # 5.7 Lymphocytes # 0.5 L Monocytes # 0.6 Eosinophils # 0.0 Basophils # 0.0 Nucleated Red Blood Cells # 0.0 Medications Current Medications Dextrose/Sodium Chloride 1,000 ml @ 35 mls/hr Q24H IV Last administered on 06/28/18 17:00; Admin Dose 35 MLS/HR; Start 06/24/18 at 19:46 IV Flush (NS 3 ml) 3 ml PER PROTOCOL IV ; Start 06/24/18 at 20:00 Lorazepam (Ativan) 0.5 mg Q3H PRN IV .ANXIETY Last administered on 06/29/18 04:01; Admin Dose 0.5 MG; Start 06/24/18 at 20:00 Ondansetron HCl (Zofran Inj) 4 mg Q6H PRN IV NAUSEA/VOMITING Last administered on 06/26/18at 00:28; Admin Dose 4 MG; Start 06/24/18 at 20:00 Acetaminophen (Tylenol Tab) 650 mg Q6H PRN PO .PAIN 1-3 OR TEMP; Start 06/24/18 at 20:00 Docusate Sodium (Colace) 100 mg Q12H PRN PO .CONSTIPATION; Start 06/24/18 at 20:00 Magnesium Hydroxide (Milk Of Mag) 30 ml DAILY PRN PO .CONSTIPATION; Start 06/24/18 at 20:00 Pantoprazole (Protonix Iv) 40 mg DAILY@06 IV Last administered on 06/29/18 05:58; Admin Dose 40 MG; Start 06/25/18 at 06:00 Heparin Sodium (Porcine) (Heparin (5000 Units/1ml)) 5,000 unit Q12 SC Last administered on 06/29/18at 10:04; Admin Dose 5,000 UNIT; Start 06/24/18 at 21:00 Albuterol/ Ipratropium (Duoneb) 3 ml Q4H RESP THERAPY NEB Last administered on 06/29/18at 13:38; Admin Dose 3 ML; Start 06/24/18 at 21:00 Albuterol/ Ipratropium (Duoneb) 3 ml Q2H RESP THERAPY PRN NEB SHORTNESS OF B REATH; Start 06/24/18 at 20:00 Atorvastatin Calcium (Lipitor) 10 mg QHS PO Last administered on 06/28/18 21:22; Admin Dose 10 MG; Start 06/24/18 at 21:00 Docusate Sodium (Colace) 100 mg DAILY PO Last administered on 06/29/18 13:33; Admin Dose 100 MG; Start 06/25/18 at 09:00 Folic Acid (Folic Acid) 1 mg DAILY PO Last administered on 06/29/18 13:33; Admin Dose 1 MG; Start 06/25/18 at 09:00 Levothyroxine Sodium (Synthroid) 25 mcg BEFORE BREAKFAST PO Last administered on 06/29/18 13:32; Admin Dose 25 MCG; Start 06/25/18 at 07:00 Metoprolol Tartrate (Lopressor) 12.5 mg BID PO Last administered on 06/29/18 13:33; Admin Dose 12.5 MG; Start 06/24/18 at 21:00 Mirtazapine (Remeron) 15 mg HS PO Last administered on 06/28/18 21:22; Admin Dose 15 MG; Start 06/24/18 at 21:00 Montelukast Sodium (Singulair) 10 mg QHS PO Last administered on 06/28/18 21:22; Admin Dose 10 MG; Start 06/24/18 at 21:00 Ropinirole HCl (Requip) 1 mg HS PO Last administered on 06/28/18 21:22; Admin Dose 1 MG; Start 06/24/18 at 21:00 Sevelamer Carbonate (Renvela) 1.6 gm WITH MEALS PO Last administered on 13:34; Admin Dose 1.6 GM; Start 06/25/18 at 07:55 Tamsulosin HCl (Flomax) 0.4 mg HS PO Last administered on 06/28/18 21:29; Admin Dose 0.4 MG; Start 06/24/18 at 21:00 Lorazepam (Ativan) 1 mg Q6H PRN PO anxiety; Start 06/24/18 at 20:00 Epoetin Jamar (Epogen (Esrd)) 10,000 units MoWeFr@17 SC Last administered on 06/26/18 18:46; Admin Dose 10,000 UNITS; Start 06/26/18 at 17:00 Hydralazine HCl (Apresoline) 10 mg Q6H PRN IV ELEVATED BLOOD PRESSURE; Start 06/26/18 at 00:00 Haloperidol (Haldol) 2 mg Q4H PRN IV AGITATION/ANXIETY Last administered on 06/29/18at 09:05; Admin Dose 2 MG; Start 06/26/18 at 01:00 Olanzapine (Zyprexa) 5 mg BID PO Last administered on 06/29/18at 13:33; Admin D ose 5 MG; Start 06/26/18 at 21:00 Assessment/Plan Hospital Course (Demo Recall) IMPRESSION 1. Acute on chronic hypoxemic and hypercapnic respiratory failure secondary to chronic obstructive pulmonary disease exacerbation. 2. Underlying significant encephalopathy complicated by likely dementia and psychiatric disease. 3. End-stage renal failure on hemodialysis; 4. Anemia. Plan 1. dc steroids 2. Bronchodilators. 3. P.r.n. noninvasive positive pressure ventilation. 4. Aspiration precautions. 5. DVT and GI prophylaxis. 6. Continue hemodialysis as tolerated consider psych eval. BIA VALDIVIA MD, [facility] Jun 29, 2018 14:37
--- NOTE | 2018-06-29 15:53 | PN ---
DATE: 06/29/2018 SUBJECTIVE: The patient remains confused, altered. No other acute events noted. OBJECTIVE: VITAL SIGNS: Blood pressure is 114/80, respiration 18, pulse 89, temperature 97.4. HEENT: Head is normocephalic. NECK: Supple. HEART: Regular rate. LUNGS: Show diminished breath sounds at base. ABDOMEN: Soft, nontender to palpation without rebound or guarding. EXTREMITIES: Negative for clubbing, cyanosis, no edema. DERMATOLOGIC: No rashes. MUSCULOSKELETAL: No joint effusion. NEUROLOGIC: No change in exam. MEDICATIONS: Reviewed. LABORATORY DATA: Shows sodium 137, potassium 5.3, BUN 77, creatinine 8.49, phosphorus 5.5. ASSESSMENT AND PLAN: 1. End-stage renal disease with access AV fistula. Plan is for hemodialysis today. We will dialyze 3 hours 2k bath, calcium 2.5. 2. Anemia. Continue to monitor hemoglobin and hematocrit levels. Will give Epogen as needed. 3. Mineral bone disorder. Monitor calcium and phosphorus levels. 4. Hypokalemia. Continue dialysis on 2 potassium bath. 5. Hypertension. Continue current blood pressure regimen. 6. Acute hypoxic respiratory failure secondary to chronic obstructive pulmonary disease exacerbation , possible pneumonia. Continue medical management. Continue nebulizers. 7. Encephalopathy, etiology toxic metabolic, possibly uremic. Continue medical management. Continu e hemodialysis. 8. Anxiety disorder. Continue current treatment plan. 9. Coronary artery disease. Continue current treatment plan. 10. History of restless leg syndrome. 11. Benign prostatic hypertrophy. Continue Flomax. 12. Hypothyroidism. Continue Synthroid. Dictated By: KITA OLIVEIRA/VIKTOR Conf#: [id number] DID#: [id number] CC: LEONORA LOUISE MD;*EndCC*
[2018-06-29] MEDS: EPOETIN 10000 UNITS/1 ML INJ (ESRD) SC SCH (17:24)
--- NOTE | 2018-06-29 18:51 | PN ---
DATE: 06/29/2018 SUBJECTIVE: The patient slightly more alert and less anxious, eating more. The patient, unfortunate ly, has high PVR in and out catheter was done and we will continue to monitor. The patient's urine a nalysis was done during this procedure and nitrate was positive blood, leukocyte esterase negative, W BC of 12. Urine was cloudy. Follow up urine culture results. The patient is currently off antibiot ics. It has been recently treated for pneumonia for prolonged period of time. PHYSICAL EXAMINATION: VITAL SIGNS: Temperature 98.7, pulse 62, respirations 22, blood pressure 103/55, saturation 98% on 3 liters. GENERAL: No acute distress. The patient is frail, pale. CARDIOVASCULAR: S1, S2. LUNGS: Faint wheezing anteriorly. ABDOMEN: Soft, nontender. EXTREMITIES: No clubbing, cyanosis, or edema. LABORATORY DATA: White count is 7, hemoglobin 8, hematocrit 26, platelets 212, neutrophils 81%, lymp hs 7%. Chemistry: Sodium 137, potassium 5.3, chloride 101, bicarbonate 23, BUN 27, creatinine 0.59, glucose 105. Renal ultrasound was done as well which did show limited study as the patient was comb ative. The left kidney could not be evaluated, atrophic echogenic appearing right kidney. There are multiple simple cysts in the right kidney. As per history, I believe he had a nephrectomy on the . MEDICATIONS: 1. Zyprexa 5 mg b.i.d. 2. Epogen as directed. 3. Haldol p.r.n. 4. Hydralazine p.r.n. 5. Colace 100 daily. 6. Folic acid daily. 7. Renvela 1.6 with meals. 8. Synthroid 25 mcg daily. 9. Heparin 5000 q.12h. 10. DuoNeb as directed q.4. 11. Lipitor 10 mg at bedtime. 12. Lopressor 12.5 b.i.d. 13. Remeron. 14. Singulair 10 mg at bedtime. 15. Requip 1 mg at bedtime. 16. Flomax 0.4 at bedtime. 17. Ativan. 18. Zofran p.r.n. 19. Tylenol p.r.n. 20. Colace p.r.n. 21. Milk of Magnesia. 22. DuoNeb. 23. The patient is on D5 half normal at 35 mL an hour with Hep-Lock as patient is now eating more. ASSESSMENT AND PLAN: A 72-year-old [place]-speaking male with history of end-stage renal disease, CO PD, anxiety disorder, presented with encephalopathy, hypercapnic respiratory failure. 1. Respiratory. Continue p.r.n. BiPAP. I discontinued steroids. Continue breathing treatment. 2. Cardiovascular. Remains on deep venous thrombosis prophylaxis. 3. Infectious disease, off antibiotics, status post recent treatment for pneumonia. 4. Urinary retention. We will consult urology. Will continue Flomax. 5. Hypothyroidism, on Synthroid. 6. Diet as tolerated. 7. Restless legs syndrome. Continue Requip. 8. Benign prostatic hypertrophy, on Flomax. 9. Anemia. Continue Epogen. Transfuse p.r.n. 10. End-stage renal disease, dialysis 3 times a week. Continue restraints or sitter and close monit oring especially because of his anxiety. We will follow. Dictated By: LEONORA SNIDER/VIKTOR Conf#: [id number] DID#: [id number]
--- NOTE | 2018-06-29 19:00 | CONS ---
Assessment/Plan Assessment/Plan Hospital Course (Demo Recall) 72-year-old Trinidadian-speaking male, was noted to be slightly more anxious and was found to be encephalopathic and confused and have shortness of breath. The patient is known to have a history of end-stage renal disease and has been on dialysis 3 days a week. He has had multiple admissions to the hospital because of anxiety pneumonia and respiratory failure. According to the daughter the pa elias does urinate small amount. 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 He also has been taking tamsulosin at home to help with his voiding. Earlier this morning he was found to be in urinary retention and was catheterized for 750 mL. Since then he has not voided and the bladder scan is showing less than 200 mL. Since he is on hemodialysis he does not make much urine. He was in retention earlier and was catheterized for 750 mL. Since then the bladder scan has been showing about 200 mL in his bladder. He is already on tamsulosin. I will order also pelvic ultrasound to check his prostate size and if he does not void we will do in and out cath once the bladder volume is over 500 mL. Consultation Date/Type/Reason Admit Date/Time Jun 24, 2018 at 17:49 Date of Consultation: Jun 29, 2018 Type of Consult Urology Reason for Consultation Urinary retention Requesting Provider: LEONORA LOUISE MD Date/Time of Note DATE: 06/29/18 TIME: 18:48 Hx of Present Illness 72-year-old Trinidadian-speaking male, was noted to be slightly more anxious and was found to be encephalopathic and confused and have shortness of breath. The patient is known to have a history of end-stage renal disease and has been on dialysis 3 days a week. He has had multiple admissions to the hospital because of anxiety pneumonia and respiratory failure. According to the daughter the patient does urinate small amount. 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 He also has been taking tamsulosin at home to help with his voiding. Earlier this morning he was found to be in urinary retention and was catheterized for 750 mL. Since then he has not voided and the bladder scan is showing less than 200 mL. Constitutional: other (Patient is anxious and agitated.) Eyes: no complaints ENT: no complaints Respiratory: shortness of breath Cardiovascular: No chest pain Gastrointestinal: no complaints; No nausea, No vomiting Genitourinary: other (Urinary retention earlier. He was voiding small amount prior to admission) Skin: other (Bedsores on his knees and sacral area) Neurologic: confusion Psychological: anxiety Past Medical History Medical History: high cholesterol, hypertension, hypothyroid, renal disease, other (COPD, gout) Home Meds Active Scripts Mirtazapine* (Mirtazapine*) 15 Mg Tablet, 15 MG PO HS for 30 Days, #60 TAB take 15mg for 1 week and increase to 30mg at night Prov:HANK LUO MD 06/12/18 Clonazepam* (Clonazepam*) 1 Mg Tablet, 1 MG PO BID PRN for ANXIETY for 10 Days, #20 TAB Prov:HANK LUO MD 06/12/18 Reported Medications Docusate Sodium* (Docusate Sodium*) 100 Mg Capsule, 100 MG PO DAILY, #30 CAP 06/01/18 Tamsulosin Hcl* (Flomax*) 0.4 Mg Cap.er.24h, 0.4 MG PO HS, CAP 06/01/18 Ropinirole Hcl* (Ropinirole Hcl*) 1 Mg Tablet, 1 MG PO HS, TAB 06/01/18 Metoprolol Tartrate* (Lopressor*) 25 Mg Tab, 12.5 MG PO BID, #60 TAB 06/01/18 Budesonide-Formoterol Fumarate* (Symbicort*) 160-4.5 Hfa.aer.ad, 2 PUFF INHALATION BID, #1 EACH 06/01/18 Atorvastatin Calcium (Atorvastatin Calcium) 10 Mg Tablet, 10 MG PO QHS, #30 TAB 06/01/18 Aspirin-Dipyridamole* (Aggrenox*) 25-200 Mg Cpmp.12hr, 1 CAP PO BID, CAP 05/11/18 Sevelamer Carbonate* (Renvela*) 800 Mg Tablet, 1600 MG PO WITH MEALS, TAB 05/11/18 Montelukast Sodium* (Montelukast Sodium*) 10 Mg Tablet, 10 MG PO QHS, #30 TAB 05/11/18 Folic Acid* (Folic Acid*) 1 Mg Tablet, 1 MG PO DAILY, TAB 05/11/18 Levothyroxine Sodium* (Levothyroxine Sodium*) 25 Mcg Tablet, 25 MCG PO BEFORE BREAKFAST, #30 TAB 05/11/18 Febuxostat* (Uloric*) 40 Mg Tablet, 40 MG PO DAILY, TAB 05/11/18 Discontinued Scripts Levofloxacin* (Levaquin*) 500 Mg Tablet, 500 MG PO Q48H for 1 Day, #1 TAB take on 06/14 Prov:HANK LUO MD 06/12/18 Albuterol Sulfate (Proair Respiclick) 90 Mcg Aer.pow.ba, 2 PUFFS INHALATION Q6 PRN for SHORTNESS OF BREATH, #1 BOTTLE 5 Refills Prov:JENELLE SIMPSON MD 05/14/18 Medications Current Medications Dextrose/Sodium Chloride 1,000 ml @ 35 mls/hr Q24H IV Last administered on 06/28/18at 17:00; Admin Dose 35 MLS/HR; Start 06/24/18 at 19:46 IV Flush (NS 3 ml) 3 ml PER PROTOCOL IV ; Start 06/24/18 at 20:00 Lorazepam (Ativan) 0.5 mg Q3H PRN IV .ANXIETY Last administered on 06/29/18at 15:55; Admin Dose 0.5 MG; Start 06/24/18 at 20:00 Ondansetron HCl (Zofran Inj) 4 mg Q6H PRN IV NAUSEA/VOMITING Last administered on 06/26/18at 00:28; Admin Dose 4 MG; Start 06/24/18 at 20:00 Acetaminophen (Tylenol Tab) 650 mg Q6H PRN PO .PAIN 1-3 OR TEMP; Start 06/24/18 at 20:00 Docusate Sodium (Colace) 100 mg Q12H PRN PO .CONSTIPATION; Start 06/24/18 at 20:00 Magnesium Hydroxide (Milk Of Mag) 30 ml DAILY PRN PO .CONSTIPATION; Start 06/24/18 at 20:00 Pantoprazole (Protonix Iv) 40 mg DAILY@06 IV Last administered on 06/29/18at 05:58; Admin Dose 40 MG; Start 06/25/18 at 06:00 Heparin Sodium (Porcine) (Heparin (5000 Units/1ml)) 5,000 unit Q12 SC Last administered on 06/29/18at 10:04; Admin Dose 5,000 UNIT; Start 06/24/18 at 21:00 Albuterol/ Ipratropium (Duoneb) 3 ml Q4H RESP THERAPY NEB Last administered on 06/29/18 16:34; Admin Dose 3 ML; Start 06/24/18 at 21:00 Albuterol/ Ipratropium (Duoneb) 3 ml Q2H RESP THERAPY PRN NEB SHORTNESS OF BREATH; Start 06/24/18 at 20:00 Atorvastatin Calcium (Lipitor) 10 mg QHS PO Last administered on 06/28/18 21:22; Admin Dose 10 MG; Start 06/24/18 at 21:00 Docusate Sodium (Colace) 100 mg DAILY PO Last administered on 06/29/18 13:33; Admin Dose 100 MG; Start 06/25/18 at 09:00 Folic Acid (Folic Acid) 1 mg DAILY PO Last administered on 06/29/18 13:33; Admin Dose 1 MG; Start 06/25/18 at 09:00 Levothyroxine Sodium (Synthroid) 25 mcg BEFORE BREAKFAST PO Last administered on 06/29/18 13:32; Admin Dose 25 MCG; Start 06/25/18 at 07:00 Metoprolol Tartrate (Lopressor) 12.5 mg BID PO Last administered on 06/29/18 13:33; Admin Dose 12.5 MG; Start 06/24/18 at 21:00 Mirtazapine (Remeron) 15 mg HS PO Last administered on 06/28/18 21:22; Admin Dose 15 MG; Start 06/24/18 at 21:00 Montelukast Sodium (Singulair) 10 mg QHS PO Last administered on 06/28/18 21:22; Admin Dose 10 MG; Start 06/24/18 at 21:00 Ropinirole HCl (Requip) 1 mg HS PO Last administered on 06/28/18 21:22; Admin Dose 1 MG; Start 06/24/18 at 21:00 Sevelamer Carbonate (Renvela) 1.6 gm WITH MEALS PO Last administered on 06/29/18 17:23; Admin Dose 1.6 GM; Start 06/25/18 at 07:55 Tamsulosin HCl (Flomax) 0.4 mg HS PO Last administered on 06/28/18 21:29; Admin Dose 0.4 MG; Start 06/24/18 at 21:00 Lorazepam (Ativan) 1 mg Q6H PRN PO anxiety; Start 06/24/18 at 20:00 Epoetin Jamar (Epogen (Esrd)) 10,000 units MoWeFr@17 SC Last administered on 06/29/18at 17:24; Admin Dose 10,000 UNITS; Start 06/26/18 at 17:00 Hydralazine HCl (Apresoline) 10 mg Q6H PRN IV ELEVATED BLOOD PRESSURE; Start 06/26/18 at 00:00 Haloperidol (Haldol) 2 mg Q4H PRN IV AGITATION/ANXIETY Last administered on 06/29/18at 09:05; Admin Dose 2 MG; Start 06/26/18 at 01:00 Olanzapine (Zyprexa) 5 mg BID PO Last administered on 06/29/18at 13:33; Admin Dose 5 MG; Start 06/26/18 at 21:00 Allergies: Coded Allergies: No Known Allergy (Unverified , 06/08/18) Past Surgical History Past Surgical Hx: other (Left nephrectomy) Social History Alcohol Use: none Smoking Status: Former smoker Exam/Review of Systems Exam Vitals Vital Signs Date Temp Pulse Resp B/P (MAP) Pulse Ox O2 O2 Flow FiO2 Time Delivery Rate 06/29/18 94 131/87 18:32 (102) 06/29/18 21 98 Nasal 3.0 16:34 Cannula 06/29/18 97.9 16:00 06/27/18 32 16:49 Intake and Output 06/28/18 06/28/18 06/29/18 1515:00 23:00 07:00 IntakeIntake Total 830 ml 350 ml OutputOutput Total 750 ml BalanceBalance 830 ml -400 ml Constitutional: frail Psych: anxiety Head: normocephalic Eyes: nl conjunctiva ENMT: nl external ears & nose Neck: supple, non-tender Respiratory: labored breathing Cardiovascular: No jugular venous distention (JVD) Gastrointestinal: soft, other (Bruises from the Lovenox ) Genitourinary - Male: nl penis, nl scrotum, other (Rectal exam: Prostate is mildly enlarged. He has constipation) Neurological: lethargic Skin: nl turgor Results Result Diagram: 06/29/18 0802 06/29/18 0602 Results 24hrs Laboratory Tests Test 06/29/18 01:00 06/29/18 06:02 06/29/18 08:02 Urine Color YELLOW Urine Clarity CLOUDY A Urine pH 5.0 Urine Specific [place] 1.011 Urine Ketones TRACE A Urine Nitrite POSITIVE A Urine Bilirubin NEGATIVE Urine Urobilinogen NEGATIVE Urine Leukocyte Esterase NEGATIVE Urine Microscopic RBC 24 H Urine Microscopic WBC 12 H Urine Squamous Epithelial Cells FEW Urine Amorphous Crystals FEW A Urine Bacteria FEW A Urine Hemoglobin 2+ H Urine Glucose 1+ H Urine Total Protein 2+ H Sodium Level 137 Potassium Level 5.3 H Chloride Level 101 Carbon Dioxide Level 23 Anion Gap 13 Blood Urea Nitrogen 77 H Creatinine 8.59 H Est Glomerular Filtrat Rate mL/min Glucose Level 105 Calcium Level 9.2 Phosphorus Level 7.7 H Magnesium Level 2.3 White Blood Count 7.0 Red Blood Count 2.58 L Hemoglobin 8.0 L Hematocrit 26.2 L Mean Corpuscular Volume 101.6 H Mean Corpuscular Hemoglobin 31.0 Mean Corpuscular Hemoglobin Concent 30.5 L Red Cell Distribution Width 14.7 H Platelet Count 212 Mean Platelet Volume 10.0 Immature Granulocytes % 2.000 H Neutrophils % 81.3 H Lymphocytes % 7.3 L Monocytes % 8.7 Eosinophils % 0.6 Basophils % 0.1 Nucleated Red Blood Cells % 0.4 H Immature Granulocytes # 0.140 H Neutrophils # 5.7 Lymphocytes # 0.5 L Monocytes # 0.6 Eosinophils # 0.0 Basophils # 0.0 Nucleated Red Blood Cells # 0.0 Medications Medication Current Medications Dextrose/Sodium Chloride 1,000 ml @ 35 mls/hr Q24H IV Last administered on 06/28/18at 17:00; Admin Dose 35 MLS/HR; Start 06/24/18 at 19:46 IV Flush (NS 3 ml) 3 ml PER PROTOCOL IV ; Start 06/24/18 at 20:00 Lorazepam (Ativan) 0.5 mg Q3H PRN IV .ANXIETY Last administered on 06/29/18at 15:55; Admin Dose 0.5 MG; Start 06/24/18 at 20:00 Ondansetron HCl (Zofran Inj) 4 mg Q6H PRN IV NAUSEA/VOMITING Last administered on 06/26/18at 00:28; Admin Dose 4 MG; Start 06/24/18 at 20:00 Acetaminophen (Tylenol Tab) 650 mg Q6H PRN PO .PAIN 1-3 OR TEMP; Start 06/24/18 at 20:00 Docusate Sodium (Colace) 100 mg Q12H PRN PO .CONSTIPATION; Start 06/24/18 at 20:00 Magnesium Hydroxide (Milk Of Mag) 30 ml DAILY PRN PO .CONSTIPATION; Start 06/24/18 at 20:00 Pantoprazole (Protonix Iv) 40 mg DAILY@06 IV Last administered on 06/29/18 05:58; Admin Dose 40 MG; Start 06/25/18 at 06:00 Heparin Sodium (Porcine) (Heparin (5000 Units/1ml)) 5,000 unit Q12 SC Last administered on 06/29/18 10:04; Admin Dose 5,000 UNIT; Start 06/24/18 at 21:00 Albuterol/ Ipratropium (Duoneb) 3 ml Q4H RESP THERAPY NEB Last administered on 06/29/18 16:34; Admin Dose 3 ML; Start 06/24/18 at 21:00 Albuterol/ Ipratropium (Duoneb) 3 ml Q2H RESP THERAPY PRN NEB SHORTNESS OF BREATH; Start 06/24/18 at 20:00 Atorvastatin Calcium (Lipitor) 10 mg QHS PO Last administered on 06/28/18 21:22; Admin Dose 10 MG; Start 06/24/18 at 21:00 Docusate Sodium (Colace) 100 mg DAILY PO Last administered on 06/29/18 13:33; Admin Dose 100 MG; Start 06/25/18 at 09:00 Folic Acid (Folic Acid) 1 mg DAILY PO Last administered on 06/29/18 13:33; Admin Dose 1 MG; Start 06/25/18 at 09:00 Levothyroxine Sodium (Synthroid) 25 mcg BEFORE BREAKFAST PO Last administered on 06/29/18 13:32; Admin Dose 25 MCG; Start 06/25/18 at 07:00 Metoprolol Tartrate (Lopressor) 12.5 mg BID PO Last administered on 06/29/18 13:33; Admin Dose 12.5 MG; Start 06/24/18 at 21:00 Mirtazapine (Remeron) 15 mg HS PO Last administered on 06/28/18 21:22; Admin Dose 15 MG; Start 06/24/18 at 21:00 Montelukast Sodium (Singulair) 10 mg QHS PO Last administered on 06/28/18 21:22; Admin Dose 10 MG; Start 06/24/18 at 21:00 Ropinirole HCl (Requip) 1 mg HS PO Last administered on 06/28/18 21:22; Admin Dose 1 MG; Start 06/24/18 at 21:00 Sevelamer Carbonate (Renvela) 1.6 gm WITH MEALS PO Last administered on 06/29/18 17:23; Admin Dose 1.6 GM; Start 06/25/18 at 07:55 Tamsulosin HCl (Flomax) 0.4 mg HS PO Last administered on 06/28/18 21:29; Admin Dose 0.4 MG; Start 06/24/18 at 21:00 Lorazepam (Ativan) 1 mg Q6H PRN PO anxiety; Start 06/24/18 at 20:00 Epoetin Jamar (Epogen (Esrd)) 10,000 units MoWeFr@17 SC Last administered on 06/29/18 17:24; Admin Dose 10,000 UNITS; Start 06/26/18 at 17:00 Hydralazine HCl (Apresoline) 10 mg Q6H PRN IV ELEVATED BLOOD PRESSURE; Start 06/26/18 at 00:00 Haloperidol (Haldol) 2 mg Q4H PRN IV AGITATION/ANXIETY Last administered on 06/29/18 09:05; Admin Dose 2 MG; Start 06/26/18 at 01:00 Olanzapine (Zyprexa) 5 mg BID PO Last administered on 06/29/18 13:33; Admin Dose 5 MG; Start 06/26/18 at 21:00 RICKY BUENROSTRO MD Jun 29, 2018 18:58
[2018-06-29] MEDS: DEXTROSE 5%-0.45% NACL 1,000 ML IV SCH (19:46)
[2018-06-29] MEDS: MIRTAZAPINE 15 MG TAB PO SCH (21:54)
[2018-06-29] MEDS: ATORVASTATIN 10 MG TAB PO SCH (21:54)
[2018-06-29] MEDS: MONTELUKAST 10 MG TAB PO SCH (21:54)
[2018-06-29] MEDS: ROPINIROLE 1 MG TAB PO SCH (21:54)
[2018-06-29] MEDS: TAMSULOSIN (SR) 0.4 MG CAP PO SCH (21:54)
[2018-06-30] VITALS (12 sets, daily range): BP systolic 89–150; BP diastolic 49–89; PULSE 20–89; RESP 18–22
[2018-06-30] MEDS: DEXTROSE 5%-0.45% NACL 1,000 ML IV SCH ×2 (00:33→21:52)
[2018-06-30] MEDS: HALOPERIDOL 5 MG INJ IV PRN (00:53)
[2018-06-30] MEDS: ALBUTEROL/IPRATROPIUM (NEB) 3 ML AMP NEB SCH ×6 (01:00→21:00)
[2018-06-30] MEDS: PANTOPRAZOLE 40 MG INJ IV SCH (05:56)
[2018-06-30] MEDS: SEVELAMER CARBONATE 0.8 GM PKT PO SCH ×3 (07:55→18:07)
--- NOTE | 2018-06-30 08:36 | PN ---
DATE: 06/30/2018 SUBJECTIVE: The patient had hemodialysis yesterday, tolerated well. The patient remains confused an d altered. No other events noted. OBJECTIVE: VITAL SIGNS: Blood pressure is 150/89, respiration is 22 pulse 20, temperature 98.3. HEENT: Head is normocephalic. NECK: Supple. HEART: Regular rate. LUNGS: Show diminished breath sounds at base. ABDOMEN: Soft, nontender to palpation. No rebound or guarding. EXTREMITIES: Negative for clubbing, cyanosis, no edema. DERMATOLOGIC: No rashes. MUSCULOSKELETAL: No joint effusion. NEUROLOGIC: No change in exam. MEDICATIONS: Reviewed. LABORATORY DATA: Shows white count 6.5, hemoglobin 9.8, platelet count is 228. Patient's BNP was re viewed. ASSESSMENT AND PLAN: 1. End-stage renal disease. The patient had hemodialysis yesterday. Plan for dialysis again tomorr ow. 2. Anemia. Monitor hemoglobin and hematocrit levels. Continue Epogen. 3. Mineral bone disorder. Monitor calcium and phosphorus levels. 4. Hypokalemia. Continue dialysis on a low potassium bath. 5. Hypertension. Continue current blood pressure regimen. 6. Acute hypoxemic respiratory failure secondary to chronic obstructive pulmonary disease exacerbati on. Continue medical management. 7. Encephalopathy. Etiology is toxic metabolic, possibly uremic. Continue current treatment plan. 8. Anxiety disorder. Continue current treatment plan. 9. Coronary artery disease. Continue medical management. 10. History of restless leg syndrome. 11. Benign prostatic hypertrophy. Continue Flomax. 12. Hypothyroidism. Continue Synthroid. 13. Urinary retention. Continue to monitor. Follow up with urology. Dictated By: KITA OLIVEIRA/NTS Conf#: [id number] DID#: [id number] CC: LEONORA LOUISE MD;*EndCC*
[2018-06-30] MEDS: HEPARIN 5,000 UNIT/1 ML VIAL SC SCH ×2 (10:31→21:58)
[2018-06-30] MEDS: DOCUSATE SODIUM 100 MG CAP PO SCH (10:58)
[2018-06-30] MEDS: METOPROLOL 25 MG TAB PO SCH ×2 (10:59→21:53)
[2018-06-30] MEDS: LEVOTHYROXINE 25 MCG TAB PO SCH (10:59)
[2018-06-30] MEDS: FOLIC ACID 1 MG TAB PO SCH (10:59)
[2018-06-30] MEDS: OLANZAPINE 5 MG TAB PO SCH ×2 (10:59→23:32)
--- NOTE | 2018-06-30 13:48 | PN ---
DATE: 06/30/2018 The patient seen, remains anxious, tried to get out of bed while in restraints. I asked the charge n taqueria to put the patient with a sitter and get a psychiatric evaluation as patient appears to be more agitated with restraints. Will try to see if that can be removed with close monitoring of his mental status. PHYSICAL EXAMINATION: VITAL SIGNS: Temperature 97.6, pulse 53, respirations 20, blood pressure 120/70 Saturation 97%. GENERAL: No acute distress. HEENT: Normocephalic, atraumatic, confused. CARDIOVASCULAR: S1, S2. LUNGS: Decreased bilaterally. ABDOMEN: Soft, nontender. EXTREMITIES: No clubbing, cyanosis, or edema. LABORATORY DATA: White count is 6.5, hemoglobin 8.8, hematocrit 29, platelet count 228, neutrophils 78%, 8%. Chemistry: Sodium 138, potassium is 4.7, chloride 103, bicarbonate 29, BUN 34, creat inine 5.59, glucose of 87. Patient's cultures, urine culture negative. MRSA screening negative. Scot griffin's pelvic ultrasound which was done shows a distended urinary bladder with volume of 724 mm. Th e patient could not urinate. Unremarkable prostate. No demonstration of pelvic masses or free fluid . MEDICATIONS: 1. Zyprexa 5 mg b.i.d. 2. Epogen as directed. 3. Haldol as directed. 4. Hydralazine p.r.n. 5. Colace 100 daily. 6. Folic acid 1 mg daily. 7. Renvela 1.6 with meals. 8. Synthroid 25 mcg daily. 9. Protonix 40 IV daily. 10. Heparin as directed 11. DuoNeb as directed. 12. Lipitor 10 mg at bedtime. 13. Lopressor 12.5 b.i.d. 14. Remeron 15 q.h.s. 15. Singulair 10 mg at bedtime. 16. Requip 1 mg at bedtime. 17. Flomax 0.4 at bedtime. P.r.n. meds were all reviewed. ASSESSMENT AND PLAN: This is a 72-year-old Dominican-speaking male with history of end-stage renal dis ease, COPD, anxiety disorder, presented with encephalopathy, hypercapnic respiratory failure. 1. Respiratory. Now off steroids due to increased confusion. Continue p.r.n. BiPAP. Pulmonary is following. Continue breathing treatments. 2. Cardiovascular. Remains on DVT prophylaxis. Vitals are stable. 3. Infectious disease, off antibiotics, status post recent treatment for pneumonia. 4. Urinary retention. Urine culture is negative. Urology is following. Catheterization in and out will be done p.r.n. Continue Flomax. 5. Hypothyroidism. Continue Synthroid. 6. Diet as tolerated. 7. Restless leg syndrome. Continue Requip. 8. Ongoing anxiety disorder and psychosis. Consult psychiatry. Continue Zyprexa. 9. Anemia, on Epogen. Transfuse p.r.n. 10. End-stage renal disease, dialysis 3 times a week. 11. The patient to be downgraded to medical/surgical floor with a sitter and close monitoring. We w ill follow. Dictated By: LEONORA SNIDER/VIKTOR Conf#: [id number] DID#: [id number] CC: LEONORA LOUISE MD;*EndCC*
--- NOTE | 2018-06-30 15:30 | CONS ---
Consult Date/Type/Reason Admit Date/Time Jun 24, 2018 at 17:49 Initial Consult Date Type of Consult Pulmonary Requesting Provider: LEONORA LOUISE MD Date/Time of Note DATE: 06/30/18 TIME: 15:30 Subjective Still has significant agitation. Objective Vital Signs Date Temp Pulse Resp B/P (MAP) Pulse Ox O2 O2 Flow FiO2 Time Delivery Rate 06/30/18 53 12:01 06/30/18 97.6 18 120/78 97 12:00 (92) 06/30/18 3.0 09:03 06/30/18 Nasal 09:03 Cannula 06/29/18 30 21:50 Intake and Output 06/29/18 06/29/18 06/30/18 1515:00 23:00 07:00 IntakeIntake Total 660 ml 120 ml OutputOutput Total 1000 ml 600 ml BalanceBalance -1000 ml 60 ml 120 ml Exam GENERAL: Well-nourished well-developed gentleman on mechanical ventilation VITAL SIGNS: per chart NECK: Supple. No JVD or lymphadenopathy. CARDIAC EXAM: S1, S2. No added sounds or murmurs. CHEST: clear bilaterally, No added sounds, rales or wheezes ABDOMEN: Soft, nontender. No guarding or rebound. EXTREMITIES: No cyanosis, clubbing or edema. NEUROLOGIC: Unresponsive on mechanical ventilation. Vent Setting Fraction of Inspired Oxygen pe: 30 Results/Medications Result Diagram: 06/30/18 0541 06/30/18 0541 Results 24 hrs Laboratory Tests Test 06/30/18 05:41 White Blood Count 6.5 Red Blood Count 2.83 L Hemoglobin 8.8 L Hematocrit 28.6 L Mean Corpuscular Volume 101.1 H Mean Corpuscular Hemoglobin 31.1 Mean Corpuscular Hemoglobin Concent 30.8 L Red Cell Distribution Width 14.6 H Platelet Count 228 Mean Platelet Volume 10.6 H Immature Granulocytes % 1.700 H Neutrophils % 78.7 H Lymphocytes % 7.6 L Monocytes % 8.8 Eosinophils % 2.9 Basophils % 0.3 Nucleated Red Blood Cells % 0.3 H Immature Granulocytes # 0.110 H Neutrophils # 5.1 Lymphocytes # 0.5 L Monocytes # 0.6 Eosinophils # 0.2 Basophils # 0.0 Nucleated Red Blood Cells # 0.0 Sodium Level 138 Potassium Level 4.7 Chloride Level 103 Carbon Dioxide Level 29 Anion Gap 6 Blood Urea Nitrogen 34 #H Creatinine 5.59 #H Est Glomerular Filtrat Rate mL/min Glucose Level 87 Calcium Level 8.9 Phosphorus Level 4.4 # Magnesium Level 2.2 Prostate Specific Antigen 1.4 Medications Current Medications Dextrose/Sodium Chloride 1,000 ml @ 35 mls/hr Q24H IV Last administered on 06/30/18at 00:33; Admin Dose 35 MLS/HR; Start 06/24/18 at 19:46 IV Flush (NS 3 ml) 3 ml PER PROTOCOL IV ; Start 06/24/18 at 20:00 Lorazepam (Ativan) 0.5 mg Q3H PRN IV .ANXIETY Last administered on 06/29/18at 22:08; Admin Dose 0.5 MG; Start 06/24/18 at 20:00 Ondansetron HCl (Zofran Inj) 4 mg Q6H PRN IV NAUSEA/VOMITING Last administered on 06/26/18at 00:28; Admin Dose 4 MG; Start 06/24/18 at 20:00 Acetaminophen (Tylenol Tab) 650 mg Q6H PRN PO .PAIN 1-3 OR TEMP; Start 06/24/18 at 20:00 Docusate Sodium (Colace) 100 mg Q12H PRN PO .CONSTIPATION; Start 06/24/18 at 20:00 Magnesium Hydroxide (Milk Of Mag) 30 ml DAILY PRN PO .CONSTIPATION; Start 06/24/18 at 20:00 Pantoprazole (Protonix Iv) 40 mg DAILY@06 IV Last administered on 06/30/18at 05:56; Admin Dose 40 MG; Start 06/25/18 at 06:00 Heparin Sodium (Porcine) (Heparin (5000 Units/1ml)) 5,000 unit Q12 SC Last administered on 06/30/18at 10:31; Admin Dose 5,000 UNIT; Start 06/24/18 at 21:00 Albuterol/ Ipratropium (Duoneb) 3 ml Q4H RESP THERAPY NEB Last administered on 06/30/18at 13:58; Admin Dose 3 ML; Start 06/24/18 at 21:00 Albuterol/ Ipratropium (Duoneb) 3 ml Q2H RESP THERAPY PRN NEB SHORTNESS OF BREATH; Start 06/24/18 at 20:00 Atorvastatin Calcium (Lipitor) 10 mg QHS PO Last administered on 06/29/18 21:54; Admin Dose 10 MG; Start 06/24/18 at 21:00 Docusate Sodium (Colace) 100 mg DAILY PO Last administered on 06/30/18 10:58; Admin Dose 100 MG; Start 06/25/18 at 09:00 Folic Acid (Folic Acid) 1 mg DAILY PO Last administered on 06/30/18 10:59; Admin Dose 1 MG; Start 06/25/18 at 09:00 Levothyroxine Sodium (Synthroid) 25 mcg BEFORE BREAKFAST PO Last administered on 06/30/18 10:59; Admin Dose 25 MCG; Start 06/25/18 at 07:00 Metoprolol Tartrate (Lopressor) 12.5 mg BID PO Last administered on 06/30/18 10:59; Admin Dose 12.5 MG; Start 06/24/18 at 21:00 Mirtazapine (Remeron) 15 mg HS PO Last administered on 06/29/18 21:54; Admin Dose 15 MG; Start 06/24/18 at 21:00 Montelukast Sodium (Singulair) 10 mg QHS PO Last administered on 06/29/18 21:54; Admin Dose 10 MG; Start 06/24/18 at 21:00 Ropinirole HCl (Requip) 1 mg HS PO Last administered on 06/29/18 21:54; Admin Dose 1 MG; Start 06/24/18 at 21:00 Sevelamer Carbonate (Renvela) 1.6 gm WITH MEALS PO Last administered on 06/30/18 11:00; Admin Dose 1.6 GM; Start 06/25/18 at 07:55 Tamsulosin HCl (Flomax) 0.4 mg HS PO Last administered on 06/29/18 21:54; Admin Dose 0.4 MG; Start 06/24/18 at 21:00 Lorazepam (Ativan) 1 mg Q6H PRN PO anxiety; Start 06/24/18 at 20:00 Epoetin Jamar (Epogen (Esrd)) 10,000 units MoWeFr@17 SC Last administered on 06/29/18 17:24; Admin Dose 10,000 UNITS; Start 06/26/18 at 17:00 Hydralazine HCl (Apresoline) 10 mg Q6H PRN IV ELEVATED BLOOD PRESSURE; Start 06/26/18 at 00:00 Haloperidol (Haldol) 2 mg Q4H PRN IV AGITATION/ANXIETY Last administered on 06/30/18at 00:53; Admin Dose 2 MG; Start 06/26/18 at 01:00 Olanzapine (Zyprexa) 5 mg BID PO Last administered on 06/30/18at 10:59; Admin Dose 5 MG; Start 06/26/18 at 21:00 Assessment/Plan Hospital Course (Demo Recall) IMPRESSION 1. Acute on chronic hypoxemic and hypercapnic respiratory failure secondary to chronic obstructive pulmonary disease exacerbation. 2. Underlying significant encephalopathy complicated by likely dementia and psychiatric disease. 3. End-stage renal failure on hemodialysis; 4. Anemia. Plan 1. dc steroids 2. Bronchodilators. 3. P.r.n. noninvasive positive pressure ventilation. 4. Aspiration precautions. 5. DVT and GI prophylaxis. 6. Continue hemodialysis as tolerated Consider MedSurg. BIA VALDIVIA MD, [facility] Jun 30, 2018 15:30
--- NOTE | 2018-06-30 19:59 | CONS ---
Consult Date/Type/Reason Admit Date/Time Jun 24, 2018 at 17:49 Initial Consult Date 06/29/18 Type of Consultation: Urology Reason for Consultation Urinary retention Requesting Provider: LEONORA LOUISE MD Date/Time of Note DATE: 06/30/18 TIME: 19:55 Subjective Patient is confused and walking around the floor. Objective Vitals Vital Signs Date Temp Pulse Resp B/P (MAP) Pulse Ox O2 O2 Flow FiO2 Time Delivery Rate 06/30/18 98.6 66 20 89/49 (62) 96 17:27 06/30/18 Nasal 3.0 17:19 Cannula 06/29/18 30 21:50 Intake and Output 06/29/18 06/29/18 06/30/18 1414:59 22:59 06:59 IntakeIntake Total 660 ml 120 ml OutputOutput Total 1000 ml 600 ml BalanceBalance -1000 ml 60 ml 120 ml Exam He has not voided today and his bladder is not distended. I did review the pelvic ultrasound that he had. The prostate is not large. And the bladder volume was 224ml and not the 724ml as dictated in the report by the radiologist. It probably was a typographical error. Therefore he is not in urinary retention at the present. Results/Medications Result Diagram: 06/30/18 0541 06/30/18 0541 Results 24 hrs Laboratory Tests Test 06/30/18 05:41 White Blood Count 6.5 Red Blood Count 2.83 L Hemoglobin 8.8 L Hematocrit 28.6 L Mean Corpuscular Volume 101.1 H Mean Corpuscular Hemoglobin 31.1 Mean Corpuscular Hemoglobin Concent 30.8 L Red Cell Distribution Width 14.6 H Platelet Count 228 Mean Platelet Volume 10.6 H Immature Granulocytes % 1.700 H Neutrophils % 78.7 H Lymphocytes % 7.6 L Monocytes % 8.8 Eosinophils % 2.9 Basophils % 0.3 Nucleated Red Blood Cells % 0.3 H Immature Granulocytes # 0.110 H Neutrophils # 5.1 Lymphocytes # 0.5 L Monocytes # 0.6 Eosinophils # 0.2 Basophils # 0.0 Nucleated Red Blood Cells # 0.0 Sodium Level 138 Potassium Level 4.7 Chloride Level 103 Carbon Dioxide Level 29 Anion Gap 6 Blood Urea Nitrogen 34 #H Creatinine 5.59 #H Est Glomerular Filtrat Rate mL/min Glucose Level 87 Calcium Level 8.9 Phosphorus Level 4.4 # Magnesium Level 2.2 Prostate Specific Antigen 1.4 Home Meds Active Scripts Mirtazapine* (Mirtazapine*) 15 Mg Tablet, 15 MG PO HS for 30 Days, #60 TAB take 15mg for 1 week and increase to 30mg at night Prov:HANK LUO MD 06/12/18 Clonazepam* (Clonazepam*) 1 Mg Tablet, 1 MG PO BID PRN for ANXIETY for 10 Days, #20 TAB Prov:HANK LUO MD 06/12/18 Reported Medications Docusate Sodium* (Docusate Sodium*) 100 Mg Capsule, 100 MG PO DAILY, #30 CAP 06/01/18 Tamsulosin Hcl* (Flomax*) 0.4 Mg Cap.er.24h, 0.4 MG PO HS, CAP 06/01/18 Ropinirole Hcl* (Ropinirole Hcl*) 1 Mg Tablet, 1 MG PO HS, TAB 06/01/18 Metoprolol Tartrate* (Lopressor*) 25 Mg Tab, 12.5 MG PO BID, #60 TAB 06/01/18 Budesonide-Formoterol Fumarate* (Symbicort*) 160-4.5 Hfa.aer.ad, 2 PUFF INHALATION BID, #1 EACH 06/01/18 Atorvastatin Calcium (Atorvastatin Calcium) 10 Mg Tablet, 10 MG PO QHS, #30 TAB 06/01/18 Aspirin-Dipyridamole* (Aggrenox*) 25-200 Mg Cpmp.12hr, 1 CAP PO BID, CAP 05/11/18 Sevelamer Carbonate* (Renvela*) 800 Mg Tablet, 1600 MG PO WITH MEALS, TAB 05/11/18 Montelukast Sodium* (Montelukast Sodium*) 10 Mg Tablet, 10 MG PO QHS, #30 TAB 05/11/18 Folic Acid* (Folic Acid*) 1 Mg Tablet, 1 MG PO DAILY, TAB 05/11/18 Levothyroxine Sodium* (Levothyroxine Sodium*) 25 Mcg Tablet, 25 MCG PO BEFORE BREAKFAST, #30 TAB 05/11/18 Febuxostat* (Uloric*) 40 Mg Tablet, 40 MG PO DAILY, TAB 05/11/18 Discontinued Scripts Levofloxacin* (Levaquin*) 500 Mg Tablet, 500 MG PO Q48H for 1 Day, #1 TAB take on 2/10 Prov:HANK LUO MD 06/12/18 Albuterol Sulfate (Proair Respiclick) 90 Mcg Aer.pow.ba, 2 PUFFS INHALATION Q6 PRN for SHORTNESS OF BREATH, #1 BOTTLE 5 Refills Prov:JENELLE SIMPSON MD 05/14/18 Medications Current Medications Dextrose/Sodium Chloride 1,000 ml @ 35 mls/hr Q24H IV Last administered on 06/30/18 00:33; Admin Dose 35 MLS/HR; Start 06/24/18 at 19:46 IV Flush (NS 3 ml) 3 ml PER PROTOCOL IV ; Start 06/24/18 at 20:00 Lorazepam (Ativan) 0.5 mg Q3H PRN IV .ANXIETY Last administered on 06/29/18 22:08; Admin Dose 0.5 MG; Start 06/24/18 at 20:00 Ondansetron HCl (Zofran Inj) 4 mg Q6H PRN IV NAUSEA/VOMITING Last administered on 06/26/18at 00:28; Admin Dose 4 MG; Start 06/24/18 at 20:00 Acetaminophen (Tylenol Tab) 650 mg Q6H PRN PO .PAIN 1-3 OR TEMP; Start 06/24/18 at 20:00 Docusate Sodium (Colace) 100 mg Q12H PRN PO .CONSTIPATION; Start 06/24/18 at 20:00 Magnesium Hydroxide (Milk Of Mag) 30 ml DAILY PRN PO .CONSTIPATION; Start 06/24/18 at 20:00 Heparin Sodium (Porcine) (Heparin (5000 Units/1ml)) 5,000 unit Q12 SC Last administered on 06/30/18 10:31; Admin Dose 5,000 UNIT; Start 06/24/18 at 21:00 Albuterol/ Ipratropium (Duoneb) 3 ml Q4H RESP THERAPY NEB Last administered on 06/30/18 17:18; Admin Dose 3 ML; Start 06/24/18 at 21:00 Albuterol/ Ipratropium (Duoneb) 3 ml Q2H RESP THERAPY PRN NEB SHORTNESS OF BREATH; Start 06/24/18 at 20:00 Atorvastatin Calcium (Lipitor) 10 mg QHS PO Last administered on 06/29/18 21:54; Admin Dose 10 MG; Start 06/24/18 at 21:00 Docusate Sodium (Colace) 100 mg DAILY PO Last administered on 06/30/18 10:58; Admin Dose 100 MG; Start 06/25/18 at 09:00 Folic Acid (Folic Acid) 1 mg DAILY PO Last administered on 06/30/18 10:59; Admin Dose 1 MG; Start 06/25/18 at 09:00 Levothyroxine Sodium (Synthroid) 25 mcg BEFORE BREAKFAST PO Last administered on 06/30/18 10:59; Admin Dose 25 MCG; Start 06/25/18 at 07:00 Metoprolol Tartrate (Lopressor) 12.5 mg BID PO Last administered on 06/30/18 10:59; Admin Dose 12.5 MG; Start 06/24/18 at 21:00 Mirtazapine (Remeron) 15 mg HS PO Last administered on 06/29/18 21:54; Admin Dose 15 MG; Start 06/24/18 at 21:00 Montelukast Sodium (Singulair) 10 mg QHS PO Last administered on 06/29/18 21:54; Admin Dose 10 MG; Start 06/24/18 at 21:00 Ropinirole HCl (Requip) 1 mg HS PO Last administered on 06/29/18 21:54; Admin Dose 1 MG; Start 06/24/18 at 21:00 Sevelamer Carbonate (Renvela) 1.6 gm WITH MEALS PO Last administered on 06/30/18 18:07; Admin Dose 1.6 GM; Start 06/25/18 at 07:55 Tamsulosin HCl (Flomax) 0.4 mg HS PO Last administered on 06/29/18 21:54; Admin Dose 0.4 MG; Start 06/24/18 at 21:00 Lorazepam (Ativan) 1 mg Q6H PRN PO anxiety; Start 06/24/18 at 20:00 Epoetin Jamar (Epogen (Esrd)) 10,000 units MoWeFr@17 SC Last administered on 06/29/18 17:24; Admin Dose 10,000 UNITS; Start 06/26/18 at 17:00 Hydralazine HCl (Apresoline) 10 mg Q6H PRN IV ELEVATED BLOOD PRESSURE; Start 06/26/18 at 00:00 Haloperidol (Haldol) 2 mg Q4H PRN IV AGITATION/ANXIETY Last administered on 06/30/18at 00:53; Admin Dose 2 MG; Start 06/26/18 at 01:00 Olanzapine (Zyprexa) 5 mg BID PO Last administered on 06/30/18at 10:59; Admin Dose 5 MG; Start 06/26/18 at 21:00 Pantoprazole (Protonix Tab) 40 mg DAILY@06 PO ; Start 07/01/18 at 06:00 Assessment/Plan Hospital Course (Demo Recall) 72-year-old Egyptian-speaking male, was noted to be slightly more anxious and was found to be encephalopathic and confused and have shortness of breath. The patient is known to have a history of end-stage renal disease and has been on dialysis 3 days a week. He has had multiple admissions to the hospital because of anxiety pneumonia and respiratory failure. According to the daughter the patient does urinate small amount. 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 He also has been taking tamsulosin at home to help with his voiding. Earlier this morning he was found to be in urinary retention and was catheterized for 750 mL. Since then he has not voided and the bladder scan is showing less than 200 mL. Since he is on hemodialysis he does not make much urine. He was in retention earlier and was catheterized for 750 mL. Since then the bladder scan has been showing about 200 mL in his bladder. He is already on tamsulosin. The pelvic ultrasound did not show an enlarged prostate. And the bladder volume was 224 mL which indicate that he is not in urinary retention. We will do bladder scan once daily and when the bladder volume is 500 mL or more do straight cath on him. RICKY BUENROSTRO MD Jun 30, 2018 19:58
[2018-06-30] MEDS ORDERED: OLANZAPINE (ODT) 5 MG TAB ONE (21:49)
[2018-06-30] MEDS: ATORVASTATIN 10 MG TAB PO SCH (21:52)
[2018-06-30] MEDS: TAMSULOSIN (SR) 0.4 MG CAP PO SCH (21:53)
[2018-06-30] MEDS ORDERED: ROPINIROLE 0.25 MG TAB ONE (21:56)
[2018-06-30] MEDS: LORAZEPAM 1 MG TAB PO PRN (22:42)
[2018-06-30] MEDS: MIRTAZAPINE 15 MG TAB PO SCH (23:32)
[2018-06-30] MEDS: ROPINIROLE 1 MG TAB PO SCH (23:32)
[2018-06-30] MEDS: MONTELUKAST 10 MG TAB PO SCH (23:32)
[2018-07-01] VITALS (17 sets, daily range): BP systolic 90–168; BP diastolic 40–107; PULSE 62–108; RESP 18–26
[2018-07-01] MEDS: ALBUTEROL/IPRATROPIUM (NEB) 3 ML AMP NEB SCH ×6 (01:00→22:13)
[2018-07-01] MEDS: LORAZEPAM 2 MG INJ IV PRN (01:15)
[2018-07-01] MEDS: HALOPERIDOL 5 MG INJ IV PRN (02:06)
[2018-07-01] MEDS ORDERED: PANTOPRAZOLE (EC) 40 MG TAB PO SCH ×2 (06:00→21:00)
[2018-07-01] MEDS: LEVOTHYROXINE 25 MCG TAB PO SCH (06:17)
[2018-07-01] MEDS: OLANZAPINE 5 MG TAB PO SCH ×2 (08:09→23:17)
[2018-07-01] MEDS: DOCUSATE SODIUM 100 MG CAP PO SCH ×2 (08:09→18:21)
[2018-07-01] MEDS: SEVELAMER CARBONATE 0.8 GM PKT PO SCH ×3 (08:09→18:21)
[2018-07-01] MEDS: METOPROLOL 25 MG TAB PO SCH ×2 (08:09→21:00)
[2018-07-01] MEDS: FOLIC ACID 1 MG TAB PO SCH (08:09)
[2018-07-01] MEDS: ACETAMINOPHEN 325 MG TAB PO PRN (08:10)
[2018-07-01] MEDS: HEPARIN 5,000 UNIT/1 ML VIAL SC SCH ×2 (08:15→23:26)
--- NOTE | 2018-07-01 09:16 | PN ---
DATE: 07/01/2018 SUBJECTIVE: The patient is stable, no events overnight. OBJECTIVE: VITAL SIGNS: Blood pressure is 105/60, respirations 18, pulse 97, temperature 98.7. HEENT: Head is normocephalic. NECK: Supple. HEART: Regular rate. LUNGS: Show diminished breath sounds at the base. ABDOMEN: Soft, nontender to palpation without rebound or guarding. EXTREMITIES: Negative for clubbing, cyanosis, no edema. DERMATOLOGIC: No rashes. MUSCULOSKELETAL: No joint effusion. NEUROLOGIC: No change in exam. MEDICATIONS: Reviewed. LABORATORY DATA: Laboratory data from 06/30/2018 was reviewed. Laboratory data from 07/01/2018 is p ending. ASSESSMENT AND PLAN: 1. End-stage renal disease. Plan is for dialysis today. We will dialyze for 3 hours 3k bath, calci um 2.5. 2. Anemia. Continue to monitor hemoglobin and hematocrit levels. Continue Epogen. 3. Mineral bone disorder, monitor calcium and phosphorus levels. 4. Acute hypoxemic respiratory failure secondary to chronic obstructive pulmonary disease exacerbati on, improving. Continue medical management. 5. Encephalopathy, etiology is multifactorial, toxic metabolic, possible dementia. Continue current medical management. Follow up with psychiatry. 6. Anxiety disorder. Continue current treatment plan. 7. Coronary artery disease. Continue current medical management. 8. History of restless leg syndrome. 9. Benign prostatic hypertrophy. Continue Flomax. 10. Hypothyroidism. Continue Synthroid. 11. Urinary retention. Continue to monitor. Follow up with Urology. Dictated By: KITA ALVAREZ DO NR/NTS Conf#: [id number] DID#: [id number] CC: LEONORA LOUISE MD; CINDY BOUDREAUX NP;*EndCC*
[2018-07-01] MEDS: ONDANSETRON 4 MG INJ IV PRN ×2 (12:04→20:42)
--- NOTE | 2018-07-01 12:57 | CONS ---
Consult Date/Type/Reason Admit Date/Time Jun 24, 2018 at 17:49 Initial Consult Date Type of Consult Pulmonary Requesting Provider: LEONORA LOUISE MD Date/Time of Note DATE: 07/01/18 TIME: 12:56 Subjective Patient remains agitated. Objective Vital Signs Date Temp Pulse Resp B/P (MAP) Pulse Ox O2 O2 Flow FiO2 Time Delivery Rate 07/01/18 21 09:01 07/01/18 98 22 90 09:01 07/01/18 98.2 98/50 (66) Room Air 08:06 07/01/18 2.0 08:00 Intake and Output 06/30/18 06/30/18 07/01/18 1515:00 23:00 07:00 IntakeIntake Total 890 ml BalanceBalance 890 ml Exam GENERAL: Well-nourished well-developed gentleman agitated. VITAL SIGNS: per chart NECK: Supple. No JVD or lymphadenopathy. CARDIAC EXAM: S1, S2. No added sounds or murmurs. CHEST: clear bilaterally, No added sounds, rales or wheezes ABDOMEN: Soft, nontender. No guarding or rebound. EXTREMITIES: No cyanosis, clubbing or edema. NEUROLOGIC: Unresponsive on mechanical ventilation. Vent Setting Fraction of Inspired Oxygen pe: 21 Results/Medications Result Diagram: 06/30/18 0541 06/30/18 0541 Medications Current Medications Dextrose/Sodium Chloride 1,000 ml @ 35 mls/hr Q24H IV Last administered on 06/30/18 21:52; Admin Dose 35 MLS/HR; Start 06/24/18 at 19:46 IV Flush (NS 3 ml) 3 ml PER PROTOCOL IV ; Start 06/24/18 at 20:00 Lorazepam (Ativan) 0.5 mg Q3H PRN IV .ANXIETY Last administered on 07/01/18 01:15; Admin Dose 0.5 MG; Start 06/24/18 at 20:00 Ondansetron HCl (Zofran Inj) 4 mg Q6H PRN IV NAUSEA/VOMITING Last administered on 07/01/18 12:04; Admin Dose 4 MG; Start 06/24/18 at 20:00 Acetaminophen (Tylenol Tab) 650 mg Q6H PRN PO .PAIN 1-3 OR TEMP Last administered on 07/01/18 08:10; Admin Dose 650 MG; Start 06/24/18 at 20:00 Docusate Sodium (Colace) 100 mg Q12H PRN PO .CONSTIPATION; Start 06/24/18 at 20:00 Magnesium Hydroxide (Milk Of Mag) 30 ml DAILY PRN PO .CONSTIPATION; Start 06/24/18 at 20:00 Heparin Sodium (Porcine) (Heparin (5000 Units/1ml)) 5,000 unit Q12 SC Last administered on 07/01/18 08:15; Admin Dose 5,000 UNIT; Start 06/24/18 at 21:00 Albuterol/ Ipratropium (Duoneb) 3 ml Q4H RESP THERAPY NEB Last administered on 07/01/18 09:01; Admin Dose 3 ML; Start 06/24/18 at 21:00 Albuterol/ Ipratropium (Duoneb) 3 ml Q2H RESP THERAPY PRN NEB SHORTNESS OF BREATH; Start 06/24/18 at 20:00 Atorvastatin Calcium (Lipitor) 10 mg QHS PO Last administered on 06/30/18 21:52; Admin Dose 10 MG; Start 06/24/18 at 21:00 Docusate Sodium (Colace) 100 mg DAILY PO Last administered on 07/01/18 08:09; Admin Dose 100 MG; Start 06/25/18 at 09:00 Folic Acid (Folic Acid) 1 mg DAILY PO Last administered on 07/01/18 08:09; Admin Dose 1 MG; Start 06/25/18 at 09:00 Levothyroxine Sodium (Synthroid) 25 mcg BEFORE BREAKFAST PO Last administered on 07/01/18 06:17; Admin Dose 25 MCG; Start 06/25/18 at 07:00 Metoprolol Tartrate (Lopressor) 12.5 mg BID PO Last administered on 06/30/18 21:53; Admin Dose 12.5 MG; Start 06/24/18 at 21:00 Mirtazapine (Remeron) 15 mg HS PO Last administered on 06/30/18 23:32; Admin Dose 15 MG; Start 06/24/18 at 21:00 Montelukast Sodium (Singulair) 10 mg QHS PO Last administered on 06/30/18 23:32; Admin Dose 10 MG; Start 06/24/18 at 21:00 Ropinirole HCl (Requip) 1 mg HS PO Last administered on 06/30/18 23:32; Admin Dose 1 MG; Start 06/24/18 at 21:00 Sevelamer Carbonate (Renvela) 1.6 gm WITH MEALS PO Last administered on 07/01/18 12:04; Admin Dose 1.6 GM; Start 06/25/18 at 07:55 Tamsulosin HCl (Flomax) 0.4 mg HS PO Last administered on 06/30/18 21:53; Admin Dose 0.4 MG; Start 06/24/18 at 21:00 Lorazepam (Ativan) 1 mg Q6H PRN PO anxiety Last administered on 06/30/18 22:42; Admin Dose 1 MG; Start 06/24/18 at 20:00 Epoetin Jamar (Epogen (Esrd)) 10,000 units MoWeFr@17 SC Last administered on 06/29/18 17:24; Admin Dose 10,000 UNITS; Start 06/26/18 at 17:00 Hydralazine HCl (Apresoline) 10 mg Q6H PRN IV ELEVATED BLOOD PRESSURE; Start 06/26/18 at 00:00 Haloperidol (Haldol) 2 mg Q4H PRN IV AGITATION/ANXIETY Last administered on 07/01/18 02:06; Admin Dose 2 MG; Start 06/26/18 at 01:00 Olanzapine (Zyprexa) 5 mg BID PO Last administered on 07/01/18 08:09; Admin Dose 5 MG; Start 06/26/18 at 21:00 Pantoprazole (Protonix Tab) 40 mg DAILY@06 PO Last administered on 07/01/18 06:17; Admin Dose 40 MG; Start 07/01/18 at 06:00 Assessment/Plan Hospital Course (Demo Recall) IMPRESSION 1. Acute on chronic hypoxemic and hypercapnic respiratory failure secondary to chronic obstructive pulmonary disease exacerbation. 2. Underlying significant encephalopathy complicated by likely dementia and psychiatric disease. 3. End-stage renal failure on hemodialysis; 4. Anemia. Plan 1. dc steroids 2. Bronchodilators. 3. P.r.n. noninvasive positive pressure ventilation. 4. Aspiration precautions. 5. DVT and GI prophylaxis. 6. Continue hemodialysis as tolerated Psychiatry recommendations BIA VALDIVIA MD, [facility] Jul 01, 2018 12:57
--- NOTE | 2018-07-01 17:18 | CONS ---
Date/Time of Note Date/Time of Note DATE: 07/01/18 TIME: 17:14 Consult Date/Type/Reason Admit Date Jun 24, 2018 at 17:49 Type of Consult Psych Ordering Provider: LEONORA LOUISE MD Subjective Patient is a 72 year old Martiniquais speaking male with a past medical history emphysema,ulcerative esophagitis, hypothyroidism, gout, end-stage renal disease on hemodialysis. Patient is alert with periods of disorganized thought, he paces back and forth requiring constant redirection, denies suicidal thoughts denies feeling of hopelessness. Objective Patient Appearance: Appropriate dress Voice Loudness: Mildly Soft/Quiet Mood and Affect Description: Cooperative Mood or Affect: Cooperative Speech Pattern: Clear Thought Process: Disorganized Hallucination Type: None Delusion Description: Not Present Assessment/Plan Recommendations Continue current medications KANIKA WHITE NP Jul 01, 2018 17:18
[2018-07-01] MEDS: MAGNESIUM HYDROXIDE 30ML CUP PO PRN (18:21)
--- NOTE | 2018-07-01 18:28 | CONS ---
Consult Date/Type/Reason Admit Date/Time Jun 24, 2018 at 17:49 Initial Consult Date 06/29/18 Type of Consultation: Urology Reason for Consultation Urinary retention Requesting Provider: LEONORA LOUISE MD Date/Time of Note DATE: 07/01/18 TIME: 18:25 Subjective The patient remains somehow confused. His family are at his bedside. Objective Vitals Vital Signs Date Temp Pulse Resp B/P (MAP) Pulse Ox O2 O2 Flow FiO2 Time Delivery Rate 07/01/18 67 20 90 21 16:54 07/01/18 98.6 97/48 (64) Room Air 14:00 07/01/18 2.0 08:00 Intake and Output 06/30/18 06/30/18 07/01/18 1515:00 23:00 07:00 IntakeIntake Total 890 ml BalanceBalance 890 ml Exam Abdomen is soft and the bladder is not distended. The bladder scan was not done because of lack of cooperation from the patient. He would not lay down to do it Results/Medications Result Diagram: 06/30/18 0541 06/30/18 0541 Home Meds Active Scripts Mirtazapine* (Mirtazapine*) 15 Mg Tablet, 15 MG PO HS for 30 Days, #60 TAB take 15mg for 1 week and increase to 30mg at night Prov:HANK LUO MD 06/12/18 Clonazepam* (Clonazepam*) 1 Mg Tablet, 1 MG PO BID PRN for ANXIETY for 10 Days, #20 TAB Prov:HANK LUO MD 06/12/18 Reported Medications Docusate Sodium* (Docusate Sodium*) 100 Mg Capsule, 100 MG PO DAILY, #30 CAP 06/01/18 Tamsulosin Hcl* (Flomax*) 0.4 Mg Cap.er.24h, 0.4 MG PO HS, CAP 06/01/18 Ropinirole Hcl* (Ropinirole Hcl*) 1 Mg Tablet, 1 MG PO HS, TAB 06/01/18 Metoprolol Tartrate* (Lopressor*) 25 Mg Tab, 12.5 MG PO BID, #60 TAB 06/01/18 Budesonide-Formoterol Fumarate* (Symbicort*) 160-4.5 Hfa.aer.ad, 2 PUFF INHALATION BID, #1 EACH 06/01/18 Atorvastatin Calcium (Atorvastatin Calcium) 10 Mg Tablet, 10 MG PO QHS, #30 TAB 06/01/18 Aspirin-Dipyridamole* (Aggrenox*) 25-200 Mg Cpmp.12hr, 1 CAP PO BID, CAP 05/11/18 Sevelamer Carbonate* (Renvela*) 800 Mg Tablet, 1600 MG PO WITH MEALS, TAB 05/11/18 Montelukast Sodium* (Montelukast Sodium*) 10 Mg Tablet, 10 MG PO QHS, #30 TAB 05/11/18 Folic Acid* (Folic Acid*) 1 Mg Tablet, 1 MG PO DAILY, TAB 05/11/18 Levothyroxine Sodium* (Levothyroxine Sodium*) 25 Mcg Tablet, 25 MCG PO BEFORE BREAKFAST, #30 TAB 05/11/18 Febuxostat* (Uloric*) 40 Mg Tablet, 40 MG PO DAILY, TAB 05/11/18 Discontinued Scripts Levofloxacin* (Levaquin*) 500 Mg Tablet, 500 MG PO Q48H for 1 Day, #1 TAB take on 06/14 Prov:HANK LUO MD 06/12/18 Albuterol Sulfate (Proair Respiclick) 90 Mcg Aer.pow.ba, 2 PUFFS INHALATION Q6 PRN for SHORTNESS OF BREATH, #1 BOTTLE 5 Refills Prov:JENELLE SIMPSON MD 05/14/18 Medications Current Medications Dextrose/Sodium Chloride 1,000 ml @ 35 mls/hr Q24H IV Last administered on 06/30/18at 21:52; Admin Dose 35 MLS/HR; Start 06/24/18 at 19:46 IV Flush (NS 3 ml) 3 ml PER PROTOCOL IV ; Start 06/24/18 at 20:00 Lorazepam (Ativan) 0.5 mg Q3H PRN IV .ANXIETY Last administered on 07/01/18at 01:15; Admin Dose 0.5 MG; Start 06/24/18 at 20:00 Ondansetron HCl (Zofran Inj) 4 mg Q6H PRN IV NAUSEA/VOMITING Last administered on 07/01/18at 12:04; Admin Dose 4 MG; Start 06/24/18 at 20:00 Acetaminophen (Tylenol Tab) 650 mg Q6H PRN PO .PAIN 1-3 OR TEMP Last administered on 07/01/18at 08:10; Admin Dose 650 MG; Start 06/24/18 at 20:00 Docusate Sodium (Colace) 100 mg Q12H PRN PO .CONSTIPATION; Start 06/24/18 at 20:00 Magnesium Hydroxide (Milk Of Mag) 30 ml DAILY PRN PO .CONSTIPATION Last administered on 07/01/18 18:21; Admin Dose 30 ML; Start 06/24/18 at 20:00 Heparin Sodium (Porcine) (Heparin (5000 Units/1ml)) 5,000 unit Q12 SC Last administered on 07/01/18 08:15; Admin Dose 5,000 UNIT; Start 06/24/18 at 21:00 Albuterol/ Ipratropium (Duoneb) 3 ml Q4H RESP THERAPY NEB Last administered on 07/01/18 16:53; Admin Dose 3 ML; Start 06/24/18 at 21:00 Albuterol/ Ipratropium (Duoneb) 3 ml Q2H RESP THERAPY PRN NEB SHORTNESS OF BREATH; Start 06/24/18 at 20:00 Atorvastatin Calcium (Lipitor) 10 mg QHS PO Last administered on 06/30/18 21:52; Admin Dose 10 MG; Start 06/24/18 at 21:00 Docusate Sodium (Colace) 100 mg DAILY PO Last administered on 07/01/18 18:21; Admin Dose 100 MG; Start 06/25/18 at 09:00 Folic Acid (Folic Acid) 1 mg DAILY PO Last administered on 07/01/18 08:09; Admin Dose 1 MG; Start 06/25/18 at 09:00 Levothyroxine Sodium (Synthroid) 25 mcg BEFORE BREAKFAST PO Last administered on 07/01/18 06:17; Admin Dose 25 MCG; Start 06/25/18 at 07:00 Metoprolol Tartrate (Lopressor) 12.5 mg BID PO Last administered on 06/30/18 21:53; Admin Dose 12.5 MG; Start 06/24/18 at 21:00 Mirtazapine (Remeron) 15 mg HS PO Last administered on 06/30/18 23:32; Admin Dose 15 MG; Start 06/24/18 at 21:00 Montelukast Sodium (Singulair) 10 mg QHS PO Last administered on 06/30/18 23:32; Admin Dose 10 MG; Start 06/24/18 at 21:00 Ropinirole HCl (Requip) 1 mg HS PO Last administered on 06/30/18 23:32; Admin Dose 1 MG; Start 06/24/18 at 21:00 Sevelamer Carbonate (Renvela) 1.6 gm WITH MEALS PO Last administered on 07/01/18 18:21; Admin Dose 1.6 GM; Start 06/25/18 at 07:55 Tamsulosin HCl (Flomax) 0.4 mg HS PO Last administered on 06/30/18 21:53; Admin Dose 0.4 MG; Start 06/24/18 at 21:00 Lorazepam (Ativan) 1 mg Q6H PRN PO anxiety Last administered on 06/30/18 22:42; Admin Dose 1 MG; Start 06/24/18 at 20:00 Epoetin Jamar (Epogen (Esrd)) 10,000 units MoWeFr@17 SC Last administered on 06/29/18 17:24; Admin Dose 10,000 UNITS; Start 06/26/18 at 17:00 Hydralazine HCl (Apresoline) 10 mg Q6H PRN IV ELEVATED BLOOD PRESSURE; Start 06/26/18 at 00:00 Haloperidol (Haldol) 2 mg Q4H PRN IV AGITATION/ANXIETY Last administered on 07/01/18 02:06; Admin Dose 2 MG; Start 06/26/18 at 01:00 Olanzapine (Zyprexa) 5 mg BID PO Last administered on 07/01/18 08:09; Admin Dose 5 MG; Start 06/26/18 at 21:00 Pantoprazole (Protonix Tab) 40 mg DAILY@06 PO Last administered on 07/01/18 06:17; Admin Dose 40 MG; Start 07/01/18 at 06:00 Trazodone HCl (Desyrel) 25 mg HS PO ; Start 07/01/18 at 21:00 Assessment/Plan Hospital Course (Demo Recall) 72-year-old Cambodian-speaking male, was noted to be slightly more anxious and was found to be encephalopathic and confused and have shortness of breath. The patient is known to have a history of end-stage renal disease and has been on dialysis 3 days a week. He has had multiple admissions to the hospital because of anxiety pneumonia and respiratory failure. According to the daughter the patient does urinate small amount. 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 He also has been taking tamsulosin at home to help with his voiding. Earlier this morning he was found to be in urinary retention and was catheterized for 750 mL. Since then he has not voided and the bladder scan is showing less than 200 mL. Since he is on hemodialysis he does not make much urine. He was in retention earlier and was catheterized for 750 mL. Since then the bladder scan has been showing about 200 mL in his bladder. He is already on tamsulosin. The pelvic ultrasound did not show an enlarged prostate. And the bladder volume was 224 mL which indicate that he is not in urinary retention. We will do bladder scan once daily hoping that he will cooperate and when the bladder volume is 500 mL or more do straight cath on him. RICKY BUENROSTRO MD Jul 01, 2018 18:28
[2018-07-01] MEDS: EPOETIN 10000 UNITS/1 ML INJ (ESRD) SC SCH (19:25)
[2018-07-01] MEDS: DEXTROSE 5%-0.45% NACL 1,000 ML IV SCH (19:46)
[2018-07-01] MEDS: CARISOPRODOL 350 MG TAB PO PRN (20:37)
[2018-07-01] MEDS: ROPINIROLE 1 MG TAB PO SCH (20:37)
[2018-07-01] MEDS: traZODone 50 MG TAB PO SCH (20:37)
[2018-07-01] MEDS ORDERED: HALOPERIDOL 5 MG INJ IM PRN (21:00)
[2018-07-01] MEDS ORDERED: CALCIUM CARBONATE 500 MG CHEW TAB PO PRN (21:00)
[2018-07-01] MEDS: TAMSULOSIN (SR) 0.4 MG CAP PO SCH (23:17)
[2018-07-01] MEDS: ATORVASTATIN 10 MG TAB PO SCH (23:17)
[2018-07-01] MEDS: MONTELUKAST 10 MG TAB PO SCH (23:17)
[2018-07-01] MEDS: MIRTAZAPINE 15 MG TAB PO SCH (23:18)
[2018-07-02] VITALS (7 sets, daily range): BP systolic 73–153; BP diastolic 31–65; PULSE 56–105; RESP 18–24
[2018-07-02] MEDS: ALBUTEROL/IPRATROPIUM (NEB) 3 ML AMP NEB SCH ×6 (00:19→21:58)
[2018-07-02] MEDS: LORAZEPAM 2 MG INJ IV PRN (00:19)
--- NOTE | 2018-07-02 00:34 | PN ---
DATE: 07/01/2018 SUBJECTIVE: The patient is transferred to the medical/surgical floor without restraints. The patien t has a sitter. Currently, receiving dialysis. The patient is definitely more calm and more coheren t. It is discussed with patient's daughter and nursing staff. PHYSICAL EXAMINATION: VITAL SIGNS: Temperature 98.6, pulse 67, respirations 20, blood pressure 97/48, saturation 90-94% on room air. GENERAL: No acute distress. HEENT: Normocephalic, atraumatic. Slightly anxious, pale. CARDIOVASCULAR: S1, S2. LUNGS: Decreased bilaterally, otherwise clear. ABDOMEN: Soft, nontender. EXTREMITIES: No clubbing, cyanosis, or edema. LABORATORY DATA: White count 6.5, hemoglobin 8.8, this was yesterday. No new labs today. MEDICATIONS: Reviewed and include; 1. Trazodone 25 mg at bedtime. 2. Protonix 20 mg daily. 3. Zyprexa 5 mg b.i.d. 4. Epogen 10,000, Friday, Friday and Friday. 5. Haldol 2 mg IV q.4h. p.r.n. 6. Hydralazine IV p.r.n. 7. Colace 100 daily. 8. Folic acid daily. 9. Renvela t.i.d. 10. Synthroid 25 mcg daily. 11. Heparin 5000 q.12h. 12. DuoNeb every 4 hours. 13. Lipitor 10 mg at bedtime. 14. Lopressor 12.5 mg b.i.d. 15. Remeron 15 mg at bedtime. 16. Singulair 10 mg at bedtime. 17. Requip 1 mg at bedtime. 18. Flomax 0.4 at bedtime. 19. Ativan p.r.n. 20. Zofran p.r.n. 21. Tylenol p.r.n. 22. Colace p.r.n. 23. Milk of magnesia p.r.n. 24. DuoNeb p.r.n. 25. Ativan p.r.n. 26. D5 half normal at 35 mL an hour. ASSESSMENT AND PLAN: This is a 72-year-old Guamanian-speaking male with history of end-stage renal dis ease, COPD, anxiety disorder, presents with encephalopathy, hypercapnic respiratory failure. 1. Respiratory. Continue p.r.n. BiPAP. O2 support, off steroids, breathing treatment as needed. Status post recent treatment for pneumonia. Currently, no evidence of infectious process and afebril e. 2. Cardiovascular. Continue deep venous thrombosis prophylaxis. 3. Infectious disease, off antibiotics. 4. Urinary retention. Urology is following in and out catheter p.r.n. Continue Flomax. 5. Hypothyroidism. Continue Synthroid. 6. Anxiety disorder. Appreciate psychiatry input. 7. Trazodone was added to patient's Zyprexa. Avoid benzodiazepine. 8. Restless leg syndrome. Continue Requip. 9. Anemia. Continue Epogen. Transfuse p.r.n. Follow up CBC tomorrow. 10. End-stage renal disease, dialysis every Friday, Friday, and Friday. currently receiving dialy sis. 11. Constipation. Continue stool softeners. 12. Continue to monitor closely. Consider placing on rehab, possibly at [facility] versus a residential facility. We will follow. Dictated By: LEONORA SNIDER/VIKTOR Conf#: [id number] DID#: [id number] CC: LEONORA LOUISE MD; CINDY BOUDREAUX NP;*End*
[2018-07-02] MEDS: CARISOPRODOL 350 MG TAB PO PRN (06:24)
[2018-07-02] MEDS: LEVOTHYROXINE 25 MCG TAB PO SCH (06:24)
[2018-07-02] MEDS: PANTOPRAZOLE (EC) 40 MG TAB PO SCH ×3 (06:24→20:31)
--- NOTE | 2018-07-02 08:40 | PN ---
DATE: 07/02/2018 SUBJECTIVE: The patient remains confused. No other events noted. OBJECTIVE: VITAL SIGNS: Blood pressure is 128/55, respirations 18, pulse 105, temperature 98.9. HEENT: Head is normocephalic. NECK: Supple. HEART: Regular rate. LUNGS: Show diminished breath sounds at the base. ABDOMEN: Soft, nontender to palpation without rebound or guarding. EXTREMITIES: Negative for clubbing, cyanosis, no edema. DERMATOLOGIC: No rashes. MUSCULOSKELETAL: No joint effusion. NEUROLOGIC: No change in exam. MEDICATIONS: The patient's medications have been reviewed. LABORATORY DATA: Shows white count 8.6, hemoglobin 7.2, platelet count is 236. ASSESSMENT AND PLAN: 1. End-stage renal disease. The patient had hemodialysis yesterday, tolerated well. Plan is for di alysis again tomorrow. 2. Anemia. Continue to monitor hemoglobin and hematocrit levels. Continue Epogen. 3. Mineral bone disorder, monitor calcium and phosphorus levels. 4. Acute hypoxemic respiratory failure secondary to chronic obstructive pulmonary disease exacerbati on, improving. Continue current treatment plan. 5. Encephalopathy. Etiology is multifactorial. Continue medical management. Follow up with [facility]. 6. Anxiety disorder. Continue current treatment plan. 7. Coronary artery disease. Continue medical management. 8. History of restless legs syndrome. 9. Benign prostatic hypertrophy. Continue Flomax. 10. Hypothyroidism. Continue Synthroid. 11. Urinary retention. Continue to monitor. Follow up with Urology. Dictated By: KITA OLIVEIRA/VIKTOR Conf#: [id number] DID#: [id number] CC: CINDY BOUDREAUX NP; LEONORA LOUISE MD;*EndCC*
[2018-07-02] MEDS: METOPROLOL 25 MG TAB PO SCH ×2 (09:00→20:32)
[2018-07-02] MEDS: HEPARIN 5,000 UNIT/1 ML VIAL SC SCH ×2 (10:14→20:31)
[2018-07-02] MEDS: SEVELAMER CARBONATE 0.8 GM PKT PO SCH ×3 (10:15→17:15)
[2018-07-02] MEDS: FOLIC ACID 1 MG TAB PO SCH (10:16)
[2018-07-02] MEDS: OLANZAPINE 5 MG TAB PO SCH ×2 (10:16→20:32)
--- NOTE | 2018-07-02 12:08 | CONS ---
Consult Date/Type/Reason Admit Date/Time Jun 24, 2018 at 17:49 Initial Consult Date Type of Consult Pulmonary Requesting Provider: LEONORA LOUISE MD Date/Time of Note DATE: 07/02/18 TIME: 11:24 Subjective Patient stable this morning no respiratory distress. Objective Vital Signs Date Temp Pulse Resp B/P (MAP) Pulse Ox O2 O2 Flow FiO2 Time Delivery Rate 07/02/18 96 20 98 Nasal 2.0 08:24 Cannula 07/02/18 97.9 99/35 (56) 08:00 07/02/18 21 04:03 Intake and Output 07/01/18 07/01/18 07/02/18 1515:00 23:00 07:00 IntakeIntake Total 400 ml 740 ml 210 ml OutputOutput Total 400 ml 900 ml BalanceBalance 0 ml -160 ml 210 ml Exam GENERAL: Well-nourished well-developed gentleman agitated. VITAL SIGNS: per chart NECK: Supple. No JVD or lymphadenopathy. CARDIAC EXAM: S1, S2. No added sounds or murmurs. CHEST: clear bilaterally, No added sounds, rales or wheezes ABDOMEN: Soft, nontender. No guarding or rebound. EXTREMITIES: No cyanosis, clubbing or edema. NEUROLOGIC: Unresponsive on mechanical ventilation. Vent Setting Fraction of Inspired Oxygen pe: 21 Results/Medications Result Diagram: 07/02/18 0655 07/02/18 0655 Results 24 hrs Laboratory Tests Test 07/02/18 06:55 White Blood Count 8.6 # Red Blood Count 2.32 L Hemoglobin 7.2 L Hematocrit 24.3 L Mean Corpuscular Volume 104.7 H Mean Corpuscular Hemoglobin 31.0 Mean Corpuscular Hemoglobin Concent 29.6 L Red Cell Distribution Width 15.7 H Platelet Count 236 Mean Platelet Volume 9.6 Immature Granulocytes % 1.400 H Neutrophils % 80.6 H Lymphocytes % 6.8 L Monocytes % 10.0 Eosinophils % 1.0 Basophils % 0.2 Nucleated Red Blood Cells % 0.3 H Immature Granulocytes # 0.120 H Neutrophils # 6.9 Lymphocytes # 0.6 L Monocytes # 0.9 Eosinophils # 0.1 Basophils # 0.0 Nucleated Red Blood Cells # 0.0 Sodium Level 139 Potassium Level 4.4 Chloride Level 99 Carbon Dioxide Level 33 H Anion Gap 7 Blood Urea Nitrogen 26 H Creatinine 4.85 H Est Glomerular Filtrat Rate mL/min Glucose Level 106 Calcium Level 8.8 Phosphorus Level 3.7 Magnesium Level 2.0 Medications Current Medications Dextrose/Sodium Chloride 1,000 ml @ 35 mls/hr Q24H IV Last administered on 06/30/18 21:52; Admin Dose 35 MLS/HR; Start 06/24/18 at 19:46 IV Flush (NS 3 ml) 3 ml PER PROTOCOL IV ; Start 06/24/18 at 20:00 Lorazepam (Ativan) 0.5 mg Q3H PRN IV .ANXIETY Last administered on 07/02/18 00:19; Admin Dose 0.5 MG; Start 06/24/18 at 20:00 Ondansetron HCl (Zofran Inj) 4 mg Q6H PRN IV NAUSEA/VOMITING Last administered on 07/01/18 20:42; Admin Dose 4 MG; Start 06/24/18 at 20:00 Acetaminophen (Tylenol Tab) 650 mg Q6H PRN PO .PAIN 1-3 OR TEMP Last administered on 07/01/18 08:10; Admin Dose 650 MG; Start 06/24/18 at 20:00 Docusate Sodium (Colace) 100 mg Q12H PRN PO .CONSTIPATION; Start 06/24/18 at 20:00 Magnesium Hydroxide (Milk Of Mag) 30 ml DAILY PRN PO .CONSTIPATION Last administered on 07/01/18 18:21; Admin Dose 30 ML; Start 06/24/18 at 20:00 Heparin Sodium (Porcine) (Heparin (5000 Units/1ml)) 5,000 unit Q12 SC Last administered on 07/02/18 10:14; Admin Dose 5,000 UNIT; Start 06/24/18 at 21:00 Albuterol/ Ipratropium (Duoneb) 3 ml Q4H RESP THERAPY NEB Last administered on 07/02/18 08:24; Admin Dose 3 ML; Start 06/24/18 at 21:00 Albuterol/ Ipratropium (Duoneb) 3 ml Q2H RESP THERAPY PRN NEB SHORTNESS OF BREATH; Start 06/24/18 at 20:00 Atorvastatin Calcium (Lipitor) 10 mg QHS PO Last administered on 07/01/18 23:17; Admin Dose 10 MG; Start 06/24/18 at 21:00 Docusate Sodium (Colace) 100 mg DAILY PO Last administered on 07/01/18 18:21; Admin Dose 100 MG; Start 06/25/18 at 09:00 Folic Acid (Folic Acid) 1 mg DAILY PO Last administered on 07/02/18 10:16; Admin Dose 1 MG; Start 06/25/18 at 09:00 Levothyroxine Sodium (Synthroid) 25 mcg BEFORE BREAKFAST PO Last administered on 07/02/18 06:24; Admin Dose 25 MCG; Start 06/25/18 at 07:00 Metoprolol Tartrate (Lopressor) 12.5 mg BID PO Last administered on 06/30/18 21:53; Admin Dose 12.5 MG; Start 06/24/18 at 21:00 Mirtazapine (Remeron) 15 mg HS PO Last administered on 07/01/18 23:18; Admin Dose 15 MG; Start 06/24/18 at 21:00 Montelukast Sodium (Singulair) 10 mg QHS PO Last administered on 07/01/18 23:17; Admin Dose 10 MG; Start 06/24/18 at 21:00 Ropinirole HCl (Requip) 1 mg HS PO Last administered on 07/01/18 20:37; Admin Dose 1 MG; Start 06/24/18 at 21:00 Sevelamer Carbonate (Renvela) 1.6 gm WITH MEALS PO Last administered on 07/02/18 10:15; Admin Dose 1.6 GM; Start 06/25/18 at 07:55 Tamsulosin HCl (Flomax) 0.4 mg HS PO Last administered on 07/01/18 23:17; Admin Dose 0.4 MG; Start 06/24/18 at 21:00 Lorazepam (Ativan) 1 mg Q6H PRN PO anxiety Last administered on 06/30/18 22:42; Admin Dose 1 MG; Start 06/24/18 at 20:00 Epoetin Jamar (Epogen (Esrd)) 10,000 units MoWeFr@17 SC Last administered on 07/01/18 19:25; Admin Dose 10,000 UNITS; Start 06/26/18 at 17:00 Hydralazine HCl (Apresoline) 10 mg Q6H PRN IV ELEVATED BLOOD PRESSURE; Start 06/26/18 at 00:00 Olanzapine (Zyprexa) 5 mg BID PO Last administered on 07/02/18 10:16; Admin Dose 5 MG; Start 06/26/18 at 21:00 Trazodone HCl (Desyrel) 25 mg HS PO Last administered on 07/01/18at 20:37; Admin Dose 25 MG; Start 07/01/18 at 21:00 Carisoprodol (Soma) 350 mg Q8H PRN PO muscle spasms Last administered on 07/02/18 06:24; Admin Dose 350 MG; Start 07/01/18 at 20:00 Haloperidol (Haldol) 2 mg Q4H PRN IM AGITATION/ANXIETY; Start 07/01/18 at 21:00 Calcium Carbonate (Tums) 500 mg Q4H PRN PO HEARTBURN; Start 07/01/18 at 21:00 Pantoprazole (Protonix Tab) 40 mg BID PO Last administered on 07/02/18at 10:16; Admin Dose 40 MG; Start 07/02/18 at 06:00 Assessment/Plan Hospital Course (Demo Recall) IMPRESSION 1. Acute on chronic hypoxemic and hypercapnic respiratory failure secondary to chronic obstructive pulmonary disease exacerbation. 2. Underlying significant encephalopathy complicated by likely dementia and psychiatric disease. 3. End-stage renal failure on hemodialysis; 4. Anemia. Plan 1. Aspiration precautions 2. Bronchodilators. 3. P.r.n. noninvasive positive pressure ventilation. O2 as needed 4. Hemodialysis per nephrology 5. DVT and GI prophylaxis. Psychiatry recommendations BIA VALDIVIA MD, [facility] Jul 02, 2018 12:08
[2018-07-02] MEDS: MAGNESIUM HYDROXIDE 30ML CUP PO PRN (17:15)
--- NOTE | 2018-07-02 17:40 | PN ---
DATE: 07/02/2018 SUBJECTIVE: The patient was seen, appears to be doing better. Noted the drop in his hemoglobin. We will continue to monitor as the patient is a dialysis patient. The patient is otherwise eating his meals. No acute events, off restraints, slightly less anxious. PHYSICAL EXAMINATION: VITAL SIGNS: Temperature 98.5, pulse 90, respirations 18, blood pressure 153/58, saturation 98%. GENERAL: In no acute distress. The patient is pale. CARDIOVASCULAR: S1, S2. Regular rate. LUNGS: Clear. The patient is slightly tachypneic. ABDOMEN: Soft, nontender. EXTREMITIES: No clubbing, cyanosis or edema. LABORATORY DATA: White count 8.6, hemoglobin 7.2, hematocrit 24, platelet count 236 with normal diff erential. Chemistry: Sodium 139, potassium 4.4, chloride 99, bicarb 33, BUN is 26, creatinine 4.85. The patient's urine culture of MRSA is negative. MEDICATIONS: All reviewed, include: 1. Protonix 40 mg daily. 2. Trazodone 25 at bedtime. 3. Haldol 2 mg p.r.n. 4. Tums p.r.n. 5. Soma p.r.n. 6. Zyprexa 5 mg b.i.d. 7. Epogen as directed. 8. Hydralazine p.r.n. 9. Colace 100 daily. 10. Folic acid 1 mg daily. 11. Renvela t.i.d. 12. Synthroid 25 mcg daily. 13. Heparin 5000 q.12. 14. DuoNeb as directed. 15. Lipitor 10 mg at bedtime. 16. Lopressor 12.5 b.i.d. 17. Remeron 15 at bedtime. 18. Singulair 10 mg at bedtime. 19. Requip 1 mg at bedtime. 20. Flomax 0.4 at bedtime. 21. Ativan p.r.n. 22. Zofran. 23. Tylenol. 24. Milk of Magnesia. ASSESSMENT AND PLAN: This is a 72-year-old Lithuanian-speaking male with history of end-stage renal dis ease chronic obstructive pulmonary disease, anxiety disorder, presented with encephalopathy, hypercap jose l respiratory failure. 1. Respiratory. Continue p.r.n. BiPAP. Continue O2 support, breathing treatments as needed. Statu s post recent treatment for pneumonia. 2. Cardiovascular. Continue deep venous thrombosis prophylaxis. Vitals are stable. 3. Infectious disease, off antibiotics. No evidence of infection. 4. Urinary retention. Continue Flomax. Urology is following. In and out catheter p.r.n. 5. Hypothyroidism. Continue Synthroid. 6. Anxiety disorder. I appreciate psychiatry input. Continue Zyprexa and Trazodone. Try to avoid benzodiazepines. 7. Restless leg syndrome. Continue Requip. 8. Anemia. Epogen and transfuse p.r.n. Follow up tomorrow H and H in the floor, definitely will tr ansfuse. 9. End-stage renal disease. Next dialysis tomorrow. 10. Constipation. Stool softeners. 11. Awaiting placement in the acute rehab at [facility] versus [facility]. We will follow. Dictated By: LEONORA SNIDER/VIKTOR Conf#: [id number] DID#: [id number] CC: CINDY BOUDREAUX RAMP AGENT;*EndCC*
[2018-07-02] MEDS: ROPINIROLE 1 MG TAB PO SCH (20:31)
[2018-07-02] MEDS: MIRTAZAPINE 15 MG TAB PO SCH (20:31)
[2018-07-02] MEDS: ATORVASTATIN 10 MG TAB PO SCH (20:31)
[2018-07-02] MEDS: MONTELUKAST 10 MG TAB PO SCH (20:31)
[2018-07-02] MEDS: TAMSULOSIN (SR) 0.4 MG CAP PO SCH (20:32)
[2018-07-02] MEDS ORDERED: SOD CHLORIDE 0.9% 500 ML IV ONE (21:00)
[2018-07-02] MEDS: ACETAMINOPHEN 325 MG TAB PO PRN (21:56)
[2018-07-03] VITALS (19 sets, daily range): BP systolic 95–154; BP diastolic 40–91; PULSE 82–99; RESP 18–22
[2018-07-03] MEDS: traZODone 50 MG TAB PO SCH ×2 (00:16→21:42)
[2018-07-03] MEDS: ALBUTEROL/IPRATROPIUM (NEB) 3 ML AMP NEB SCH ×6 (02:15→20:52)
[2018-07-03] MEDS: LEVOTHYROXINE 25 MCG TAB PO SCH (06:27)
[2018-07-03] MEDS: SEVELAMER CARBONATE 0.8 GM PKT PO SCH ×3 (08:00→16:33)
[2018-07-03] MEDS: LORAZEPAM 1 MG TAB PO PRN ×2 (08:51→18:28)
[2018-07-03] MEDS: OLANZAPINE 5 MG TAB PO SCH ×2 (08:51→21:46)
[2018-07-03] MEDS: PANTOPRAZOLE (EC) 40 MG TAB PO SCH ×2 (09:00→21:42)
[2018-07-03] MEDS: METOPROLOL 25 MG TAB PO SCH ×2 (09:00→21:43)
[2018-07-03] MEDS: DOCUSATE SODIUM 100 MG CAP PO SCH (09:00)
[2018-07-03] MEDS: FOLIC ACID 1 MG TAB PO SCH (09:00)
--- NOTE | 2018-07-03 09:14 | PN ---
DATE: 07/03/2018 SUBJECTIVE: The patient is stable, no acute events overnight. No fevers, chills, nausea, or vomitin g. OBJECTIVE: VITAL SIGNS: Blood pressure is 140/64, pulse 89, respirations 20, temperature 99.0. HEENT: Head is normocephalic. NECK: Supple. HEART: Regular rate. LUNGS: Show diminished breath sounds at the base. ABDOMEN: Soft, nontender to palpation without rebound or guarding. EXTREMITIES: Negative for clubbing, cyanosis, no edema. DERMATOLOGIC: No rashes. MUSCULOSKELETAL: No joint effusion. NEUROLOGIC: No change in exam. MEDICATIONS: Reviewed. LABORATORY DATA: Shows sodium 142, potassium 4.6, BUN 40, creatinine 6.98. White count 8.8, hemoglo bin 8.5, platelet count is 229. ASSESSMENT AND PLAN: 1. End-stage renal disease. The patient is scheduled for dialysis today. We will dialyze 3 hours 3 k bath, calcium 2.5. 2. Anemia. Continue to monitor hemoglobin and hematocrit levels. We will give Epogen with dialysis . 3. Mineral bone disorder, monitor calcium and phosphorus levels. 4. Acute hypoxemic respiratory failure secondary to chronic obstructive pulmonary disease exacerbati on, improving. Continue medical management. 5. Encephalopathy, etiology is multifactorial. Continue to monitor. Follow up with psychiatry. 6. Anxiety disorder. Continue current treatment plan. 7. Coronary artery disease. Continue medical management. 8. History of restless legs syndrome. 9. Benign prostatic hypertrophy. Continue Flomax. 10. Hypothyroidism. Continue Synthroid. 11. Urinary retention. Continue to monitor. Continue Flomax. Dictated By: KITA ALVAREZ DO NR/NTS Conf#: [id number] DID#: [id number] CC: LEONORA LOUISE MD; CINDY BOUDREAUX NP;*EndCC*
[2018-07-03] MEDS: HEPARIN 5,000 UNIT/1 ML VIAL SC SCH ×2 (10:06→21:47)
--- NOTE | 2018-07-03 19:39 | PN ---
DATE: 07/03/2018 SUBJECTIVE: The patient was seen. He is currently receiving dialysis. He is status post 1 unit of PRBC. Yesterday, I received a call that patient is hypotensive. I ordered a 500 mL bolus of fluids and 1 unit of PRBC. Hemoglobin improved from 7.2 to 8.5 this morning, and patient's blood pressure h as remained stable since. PHYSICAL EXAMINATION: VITAL SIGNS: Temperature 98.8, pulse 94, respirations 20, blood pressure 138/67, saturation 97% on 2 L. GENERAL: The patient is in no acute distress. HEENT: Normocephalic, atraumatic. SKIN: Pale. CARDIOVASCULAR: S1, S2. Regular rate. LUNGS: Clear. ABDOMEN: Soft, nontender. EXTREMITIES: No clubbing, cyanosis or edema. LABORATORY DATA: Labs today: White count 8.8, hemoglobin 8.5, hematocrit 29, platelet count 229. N eutrophils 80%, lymphocytes 7%. Chemistry: Sodium 142, potassium 4.6, chloride 105, bicarb 29, BUN is 40, creatinine 6.98 and glucose of 92. MEDICATIONS: 1. Protonix 40 b.i.d. Dose was increased. 2. Trazodone 25 at bedtime. 3. Haldol p.r.n. 4. Tums p.r.n. 5. Soma 350 q.8 p.r.n. 6. Zyprexa 5 mg b.i.d. 7. Epogen every Friday, Friday, Friday. 8. Hydralazine p.r.n. 9. Colace 100 daily. 10. Folic acid 1 mg daily. 11. Renvela 1.6 with meals. 12. Synthroid 25 mcg daily. 13. Heparin as directed. 14. DuoNeb as directed. 15. Lipitor 10 mg at bedtime. 16. Lopressor 12.5 b.i.d. 17. Remeron 15 at bedtime. 18. Singulair 10 mg at bedtime. 19. Requip 1 mg at bedtime. 20. Flomax 0.4 at bedtime. 21. Zofran. 22. Tylenol. 23. Milk of Magnesia. 24. Ativan p.r.n. ASSESSMENT AND PLAN: This is a 72-year-old Peruvian-speaking male with history of end-stage renal dis ease, chronic obstructive pulmonary disease, anxiety disorder, who presents with encephalopathy, hype rcapnic respiratory failure. 1. Respiratory. Continue p.r.n. BiPAP, O2 support and breathing treatment as needed. Status post t reatment for pneumonia. 2. Cardiovascular. Continue deep venous thrombosis prophylaxis. Vitals are stable. 3. Infectious disease. Off antibiotics. 4. Urinary retention. Continue Flomax. Urology is following. 5. Hypothyroidism. Continue Synthroid. 6. Anemia, status post 1 unit of PRBC. Check stool for occult blood. Continue Epogen and transfuse p.r.n. 7. Restless legs syndrome. Continue Requip. 8. End-stage renal disease. Dialysis is currently being done. 9. Constipation. Continue stool softeners. 10. assistant manager of operations is assisting with placement. Options include SNF placement versus acute rehab eval . This case is discussed at bedside briefly with family. We will follow. Dictated By: LEONORA SNIDER/VIKTOR Conf#: [id number] DID#: [id number]
[2018-07-03] MEDS: MIRTAZAPINE 15 MG TAB PO SCH (21:42)
[2018-07-03] MEDS: ROPINIROLE 1 MG TAB PO SCH (21:42)
[2018-07-03] MEDS: ATORVASTATIN 10 MG TAB PO SCH (21:42)
[2018-07-03] MEDS: TAMSULOSIN (SR) 0.4 MG CAP PO SCH (21:42)
[2018-07-03] MEDS: MONTELUKAST 10 MG TAB PO SCH (21:42)
[2018-07-03] MEDS: EPOETIN 10000 UNITS/1 ML INJ (ESRD) SC SCH (21:44)
[2018-07-04] MEDS: ALBUTEROL/IPRATROPIUM (NEB) 3 ML AMP NEB SCH ×6 (00:02→21:00)
[2018-07-04 02:00] VITALS: BP 125/58; PULSE 84; RESP 18
[2018-07-04] MEDS: LORAZEPAM 1 MG TAB PO PRN (03:02)
[2018-07-04] MEDS: LEVOTHYROXINE 25 MCG TAB PO SCH (06:31)
[2018-07-04] MEDS: PANTOPRAZOLE (EC) 40 MG TAB PO SCH ×2 (06:31→20:12)
[2018-07-04 07:58] VITALS: BP 123/58; PULSE 89; RESP 32
--- NOTE | 2018-07-04 09:04 | PN ---
Date/Time of Note Date/Time of Note DATE: 07/04/18 TIME: 09:03 Assessment/Plan VTE Prophylaxis Risk score (from Nsg)>0 risk: 3 SCD applied (from Nsg): No SCD contraindicated: other Pharmacological prophylaxis: other Lines/Catheters IV Catheter Type (from Nrs): Saline Lock Urinary Cath still in place: No Assessment/Plan Hospital Course SUBJECTIVE: The patient is stable, no acute events overnight. No fevers, chills, nausea, or vomiting. last hd was yesterday there is a sitter at the bedside OBJECTIVE: HEENT: Head is normocephalic. NECK: Supple. HEART: Regular rate. LUNGS: Show diminished breath sounds at the base. ABDOMEN: Soft, nontender to palpation without rebound or guarding. EXTREMITIES: Negative for clubbing, cyanosis, no edema. DERMATOLOGIC: No rashes. MUSCULOSKELETAL: No joint effusion. NEUROLOGIC: No change in exam. MEDICATIONS: Reviewed. ASSESSMENT AND PLAN: 1. End-stage renal disease. The patient will remain on MWF dialysis schedule. next hd in 2 days 2. Anemia. Continue to monitor hemoglobin and hematocrit levels. We will give Epogen with dialysis. 3. Mineral bone disorder, monitor calcium and phosphorus levels. 4. Acute hypoxemic respiratory failure secondary to chronic obstructive pulmonary disease exacerbation, improving. Continue medical management. 5. Encephalopathy, etiology is multifactorial. Continue to monitor. Follow up with psychiatry. 6. Anxiety disorder. Continue current treatment plan. 7. Coronary artery disease. Continue medical management. 8. History of restless legs syndrome. 9. Benign prostatic hypertrophy. Continue Flomax. 10. Hypothyroidism. Continue Synthroid. 11. Urinary retention. Continue to monitor. Continue Flomax. Result Diagram: 07/03/18 0443 07/03/18 0443 Exam/Review of Systems Exam Vitals Vital Signs Date Temp Pulse Resp B/P (MAP) Pulse Ox O2 O2 Flow FiO2 Time Delivery Rate 07/04/18 98.6 89 32 123/58 96 07:58 (79) 07/04/18 Nasal 2.0 04:53 Cannula 07/02/18 21 04:03 Intake and Output 07/03/18 07/03/18 07/04/18 1515:00 23:00 07:00 IntakeIntake Total 240 ml 560 ml 300 ml OutputOutput Total 2400 ml BalanceBalance 240 ml -1840 ml 300 ml Medications Medication Current Medications IV Flush (NS 3 ml) 3 ml PER PROTOCOL IV ; Start 06/24/18 at 20:00 Lorazepam (Ativan) 0.5 mg Q3H PRN IV .ANXIETY Last administered on 07/02/18 00:19; Admin Dose 0.5 MG; Start 06/24/18 at 20:00 Ondansetron HCl (Zofran Inj) 4 mg Q6H PRN IV NAUSEA/VOMITING Last administered on 07/01/18 20:42; Admin Dose 4 MG; Start 06/24/18 at 20:00 Acetaminophen (Tylenol Tab) 650 mg Q6H PRN PO .PAIN 1-3 OR TEMP Last administered on 07/02/18 21:56; Admin Dose 650 MG; Start 06/24/18 at 20:00 Docusate Sodium (Colace) 100 mg Q12H PRN PO .CONSTIPATION Last administered on 07/02/18 17:15; Admin Dose 100 MG; Start 06/24/18 at 20:00 Magnesium Hydroxide (Milk Of Mag) 30 ml DAILY PRN PO .CONSTIPATION Last admin istered on 07/02/18 17:15; Admin Dose 30 ML; Start 06/24/18 at 20:00 Heparin Sodium (Porcine) (Heparin (5000 Units/1ml)) 5,000 unit Q12 SC Last administered on 07/03/18 21:47; Admin Dose 5,000 UNIT; Start 06/24/18 at 21:00 Albuterol/ Ipratropium (Duoneb) 3 ml Q4H RESP THERAPY NEB Last administered on 07/04/18 04:52; Admin Dose 3 ML; Start 06/24/18 at 21:00 Albuterol/ Ipratropium (Duoneb) 3 ml Q2H RESP THERAPY PRN NEB SHORTNESS OF BREATH; Start 06/24/18 at 20:00 Atorvastatin Calcium (Lipitor) 10 mg QHS PO Last administered on 07/03/18 21:42; Admin Dose 10 MG; Start 06/24/18 at 21:00 Docusate Sodium (Colace) 100 mg DAILY PO Last administered on 07/01/18 18:21; Admin Dose 100 MG; Start 06/25/18 at 09:00 Folic Acid (Folic Acid) 1 mg DAILY PO Last administered on 07/02/18 10:16; Admin Dose 1 MG; Start 06/25/18 at 09:00 Levothyroxine Sodium (Synthroid) 25 mcg BEFORE BREAKFAST PO Last administered on 07/04/18 06:31; Admin Dose 25 MCG; Start 06/25/18 at 07:00 Metoprolol Tartrate (Lopressor) 12.5 mg BID PO Last administered on 07/03/18 21:43; Admin Dose 12.5 MG; Start 06/24/18 at 21:00 Mirtazapine (Remeron) 15 mg HS PO Last administered on 07/03/18 21:42; Admin Dose 15 MG; Start 06/24/18 at 21:00 Montelukast Sodium (Singulair) 10 mg QHS PO Last administered on 07/03/18 21: 42; Admin Dose 10 MG; Start 06/24/18 at 21:00 Ropinirole HCl (Requip) 1 mg HS PO Last administered on 07/03/18 21:42; Admin Dose 1 MG; Start 06/24/18 at 21:00 Sevelamer Carbonate (Renvela) 1.6 gm WITH MEALS PO Last administered on 07/03/18 12:37; Admin Dose 1.6 GM; Start 06/25/18 at 07:55 Tamsulosin HCl (Flomax) 0.4 mg HS PO Last administered on 07/03/18 21:42; Admin Dose 0.4 MG; Start 06/24/18 at 21:00 Lorazepam (Ativan) 1 mg Q6H PRN PO anxiety Last administered on 07/04/18 03:02; Admin Dose 1 MG; Start 06/24/18 at 20:00 Epoetin Jamar (Epogen (Esrd)) 10,000 units MoWeFr@17 SC Last administered on 07/03/18 21:44; Admin Dose 10,000 UNITS; Start 06/26/18 at 17:00 Hydralazine HCl (Apresoline) 10 mg Q6H PRN IV ELEVATED BLOOD PRESSURE; Start 06/26/18 at 00:00 Olanzapine (Zyprexa) 5 mg BID PO Last administered on 07/03/18 21:46; Admin Dose 5 MG; Start 06/26/18 at 21:00 Trazodone HCl (Desyrel) 25 mg HS PO Last administered on 07/03/18at 21:42; Admin Dose 25 MG; Start 07/01/18 at 21:00 Carisoprodol (Soma) 350 mg Q8H PRN PO muscle spasms Last administered on 07/02/18at 06:24; Admin Dose 350 MG; Start 07/01/18 at 20:00 Haloperidol (Haldol) 2 mg Q4H PRN IM AGITATION/ANXIETY; Start 07/01/18 at 21:00 Calcium Carbonate (Tums) 500 mg Q4H PRN PO HEARTBURN; Start 07/01/18 at 21:00 Pantoprazole (Protonix Tab) 40 mg BID PO Last administered on 07/04/18at 06:31; Admin Dose 40 MG; Start 07/02/18 at 06:00 SANKET SOLIMAN DO Jul 04, 2018 09:04
[2018-07-04] MEDS: DOCUSATE SODIUM 100 MG CAP PO SCH (09:13)
[2018-07-04] MEDS: FOLIC ACID 1 MG TAB PO SCH (09:13)
[2018-07-04] MEDS: OLANZAPINE 5 MG TAB PO SCH ×2 (09:13→22:42)
[2018-07-04] MEDS: METOPROLOL 25 MG TAB PO SCH ×2 (09:13→20:15)
[2018-07-04] MEDS: SEVELAMER CARBONATE 0.8 GM PKT PO SCH ×3 (09:17→17:58)
[2018-07-04] MEDS: HEPARIN 5,000 UNIT/1 ML VIAL SC SCH ×2 (09:19→20:17)
--- NOTE | 2018-07-04 13:10 | CONS ---
Consult Date/Type/Reason Admit Date/Time Jun 24, 2018 at 17:49 Initial Consult Date 06/29/18 Type of Consultation: Pulm Requesting Provider: LEONORA LOUISE MD Date/Time of Note DATE: 07/04/18 TIME: 13:08 Subjective No events. On 1-2 L NC Objective Vitals Vital Signs Date Temp Pulse Resp B/P (MAP) Pulse Ox O2 O2 Flow FiO2 Time Delivery Rate 07/04/18 88 16 96 Nasal 2.0 09:31 Cannula 07/04/18 98.6 123/58 07:58 (79) 07/02/18 21 04:03 Intake and Output 07/03/18 07/03/18 07/04/18 1515:00 23:00 07:00 IntakeIntake Total 240 ml 560 ml 300 ml OutputOutput Total 2400 ml BalanceBalance 240 ml -1840 ml 300 ml Exam GENERAL: Well-nourished well-developed gentleman agitated. VITAL SIGNS: per chart NECK: Supple. No JVD or lymphadenopathy. CARDIAC EXAM: S1, S2. No added sounds or murmurs. CHEST: clear bilaterally, No added sounds, rales or wheezes ABDOMEN: Soft, nontender. No guarding or rebound. EXTREMITIES: No cyanosis, clubbing or edema. Results/Medications Result Diagram: 07/03/1844207/03/18 0443 Home Meds Active Scripts Mirtazapine* (Mirtazapine*) 15 Mg Tablet, 15 MG PO HS for 30 Days, #60 TAB take 15mg for 1 week and increase to 30mg at night Prov:HANK LUO MD 06/12/18 Clonazepam* (Clonazepam*) 1 Mg Tablet, 1 MG PO BID PRN for ANXIETY for 10 Days, #20 TAB Prov:HANK LUO MD 06/12/18 Reported Medications Docusate Sodium* (Docusate Sodium*) 100 Mg Capsule, 100 MG PO DAILY, #30 CAP 06/01/18 Tamsulosin Hcl* (Flomax*) 0.4 Mg Cap.er.24h, 0.4 MG PO HS, CAP 06/01/18 Ropinirole Hcl* (Ropinirole Hcl*) 1 Mg Tablet, 1 MG PO HS, TAB 06/01/18 Metoprolol Tartrate* (Lopressor*) 25 Mg Tab, 12.5 MG PO BID, #60 TAB 06/01/18 Budesonide-Formoterol Fumarate* (Symbicort*) 160-4.5 Hfa.aer.ad, 2 PUFF INHALATION BID, #1 EACH 06/01/18 Atorvastatin Calcium (Atorvastatin Calcium) 10 Mg Tablet, 10 MG PO QHS, #30 TAB 06/01/18 Aspirin-Dipyridamole* (Aggrenox*) 25-200 Mg Cpmp.12hr, 1 CAP PO BID, CAP 05/11/18 Sevelamer Carbonate* (Renvela*) 800 Mg Tablet, 1600 MG PO WITH MEALS, TAB 05/11/18 Montelukast Sodium* (Montelukast Sodium*) 10 Mg Tablet, 10 MG PO QHS, #30 TAB 05/11/18 Folic Acid* (Folic Acid*) 1 Mg Tablet, 1 MG PO DAILY, TAB 05/11/18 Levothyroxine Sodium* (Levothyroxine Sodium*) 25 Mcg Tablet, 25 MCG PO BEFORE BREAKFAST, #30 TAB 05/11/18 Febuxostat* (Uloric*) 40 Mg Tablet, 40 MG PO DAILY, TAB 05/11/18 Medications Current Medications IV Flush (NS 3 ml) 3 ml PER PROTOCOL IV ; Start 06/24/18 at 20:00 Lorazepam (Ativan) 0.5 mg Q3H PRN IV .ANXIETY Last administered on 07/02/18at 0 0:19; Admin Dose 0.5 MG; Start 06/24/18 at 20:00 Ondansetron HCl (Zofran Inj) 4 mg Q6H PRN IV NAUSEA/VOMITING Last administered on 07/01/18at 20:42; Admin Dose 4 MG; Start 06/24/18 at 20:00 Acetaminophen (Tylenol Tab) 650 mg Q6H PRN PO .PAIN 1-3 OR TEMP Last administered on 07/02/18at 21:56; Admin Dose 650 MG; Start 06/24/18 at 20:00 Docusate Sodium (Colace) 100 mg Q12H PRN PO .CONSTIPATION Last administered on 07/02/18at 17:15; Admin Dose 100 MG; Start 06/24/18 at 20:00 Magnesium Hydroxide (Milk Of Mag) 30 ml DAILY PRN PO .CONSTIPATION Last administered on 07/02/18at 17:15; Admin Dose 30 ML; Start 06/24/18 at 20:00 Heparin Sodium (Porcine) (Heparin (5000 Units/1ml)) 5,000 unit Q12 SC Last administered on 07/04/18 09:19; Admin Dose 5,000 UNIT; Start 06/24/18 at 21:00 Albuterol/ Ipratropium (Duoneb) 3 ml Q4H RESP THERAPY NEB Last administered on 07/04/18 09:27; Admin Dose 3 ML; Start 06/24/18 at 21:00 Albuterol/ Ipratropium (Duoneb) 3 ml Q2H RESP THERAPY PRN NEB SHORTNESS OF BREATH; Start 06/24/18 at 20:00 Atorvastatin Calcium (Lipitor) 10 mg QHS PO Last administered on 07/03/18 21:42; Admin Dose 10 MG; Start 06/24/18 at 21:00 Docusate Sodium (Colace) 100 mg DAILY PO Last administered on 07/04/18 09:13; Admin Dose 100 MG; Start 06/25/18 at 09:00 Folic Acid (Folic Acid) 1 mg DAILY PO Last administered on 07/04/18 09:13; Admin Dose 1 MG; Start 06/25/18 at 09:00 Levothyroxine Sodium (Synthroid) 25 mcg BEFORE BREAKFAST PO Last administered on 07/04/18 06:31; Admin Dose 25 MCG; Start 06/25/18 at 07:00 Metoprolol Tartrate (Lopressor) 12.5 mg BID PO Last administered on 07/04/18 09:13; Admin Dose 12.5 MG; Start 06/24/18 at 21:00 Mirtazapine (Remeron) 15 mg HS PO Last administered on 07/03/18 21:42; Admin Dose 15 MG; Start 06/24/18 at 21:00 Montelukast Sodium (Singulair) 10 mg QHS PO Last administered on 07/03/18 21:42; Admin Dose 10 MG; Start 06/24/18 at 21:00 Ropinirole HCl (Requip) 1 mg HS PO Last administered on 07/03/18 21:42; Admin Dose 1 MG; Start 06/24/18 at 21:00 Sevelamer Carbonate (Renvela) 1.6 gm WITH MEALS PO Last administered on 07/04/18 12:42; Admin Dose 1.6 GM; Start 06/25/18 at 07:55 Tamsulosin HCl (Flomax) 0.4 mg HS PO Last administered on 07/03/18 21:42; Admin Dose 0.4 MG; Start 06/24/18 at 21:00 Lorazepam (Ativan) 1 mg Q6H PRN PO anxiety Last administered on 07/04/18 03:02; Admin Dose 1 MG; Start 06/24/18 at 20:00 Epoetin Jamar (Epogen (Esrd)) 10,000 units MoWeFr@17 SC Last administered on 07/03/18 21:44; Admin Dose 10,000 UNITS; Start 06/26/18 at 17:00 Hydralazine HCl (Apresoline) 10 mg Q6H PRN IV ELEVATED BLOOD PRESSURE; Start 06/26/18 at 00:00 Olanzapine (Zyprexa) 5 mg BID PO Last administered on 07/04/18 09:13; Admin Dose 5 MG; Start 06/26/18 at 21:00 Trazodone HCl (Desyrel) 25 mg HS PO Last administered on 07/03/18 21:42; Admin Dose 25 MG; Start 07/01/18 at 21:00 Carisoprodol (Soma) 350 mg Q8H PRN PO muscle spasms Last administered on 07/02/18 06:24; Admin Dose 350 MG; Start 07/01/18 at 20:00 Haloperidol (Haldol) 2 mg Q4H PRN IM AGITATION/ANXIETY; Start 07/01/18 at 21:00 Calcium Carbonate (Tums) 500 mg Q4H PRN PO HEARTBURN; Start 07/01/18 at 21:00 Pantoprazole (Protonix Tab) 40 mg BID PO Last administered on 07/04/18 06:31; Admin Dose 40 MG; Start 07/02/18 at 06:00 Assessment/Plan Assessment/Plan (Daily) IMP: 1. Acute on chronic hypoxemic and hypercapnic respiratory failure secondary to chronic obstructive pulmonary disease exacerbation. 2. Underlying significant encephalopathy complicated by likely dementia and psychiatric disease. 3. End-stage renal failure on hemodialysis; 4. Anemia. RECS: 1. Aspiration precautions 2. Bronchodilators 3. BiPAP prn 4. Hemodialysis per nephrology 5. DVT and GI prophylaxis. FATIMAH ALCARAZ MD Jul 04, 2018 13:10
[2018-07-04 14:00] VITALS: BP 137/67; PULSE 90; RESP 22
--- NOTE | 2018-07-04 14:27 | PN ---
Date/Time of Note Date/Time of Note DATE: 07/04/18 TIME: 14:22 Subjective Patient still has a sitter watching him. He has been voiding small amount and his urine is clear Objective Vitals Vital Signs Date Temp Pulse Resp B/P (MAP) Pulse Ox O2 O2 Flow FiO2 Time Delivery Rate 07/04/18 82 16 95 Nasal 2.0 13:14 Cannula 07/04/18 98.6 123/58 07:58 (79) 07/02/18 21 04:03 Intake and Output 07/03/18 07/03/18 07/04/18 1515:00 23:00 07:00 IntakeIntake Total 240 ml 560 ml 300 ml OutputOutput Total 2400 ml BalanceBalance 240 ml -1840 ml 300 ml Abdomen is soft and the bladder is not distended. Results Result Diagram: 07/03/18 0443 07/03/18 0443 Imaging Bladder scan has been showing 68 mL, 18 mL and 13 mL postvoid residual Medications Medications Current Medications IV Flush (NS 3 ml) 3 ml PER PROTOCOL IV ; Start 06/24/18 at 20:00 Lorazepam (Ativan) 0.5 mg Q3H PRN IV .ANXIETY Last administered on 07/02/18 00:19; Admin Dose 0.5 MG; Start 06/24/18 at 20:00 Ondansetron HCl (Zofran Inj) 4 mg Q6H PRN IV NAUSEA/VOMITING Last administered on 07/01/18 20:42; Admin Dose 4 MG; Start 06/24/18 at 20:00 Acetaminophen (Tylenol Tab) 650 mg Q6H PRN PO .PAIN 1-3 OR TEMP Last administered on 07/02/18 21:56; Admin Dose 650 MG; Start 06/24/18 at 20:00 Docusate Sodium (Colace) 100 mg Q12H PRN PO .CONSTIPATION Last administered on 07/02/18 17:15; Admin Dose 100 MG; Start 06/24/18 at 20:00 Magnesium Hydroxide (Milk Of Mag) 30 ml DAILY PRN PO .CONSTIPATION Last administered on 07/02/18 17:15; Admin Dose 30 ML; Start 06/24/18 at 20:00 Heparin Sodium (Porcine) (Heparin (5000 Units/1ml)) 5,000 unit Q12 SC Last administered on 07/04/18 09:19; Admin Dose 5,000 UNIT; Start 06/24/18 at 21:00 Albuterol/ Ipratropium (Duoneb) 3 ml Q4H RESP THERAPY NEB Last administered on 07/04/18 13:14; Admin Dose 3 ML; Start 06/24/18 at 21:00 Albuterol/ Ipratropium (Duoneb) 3 ml Q2H RESP THERAPY PRN NEB SHORTNESS OF BREATH; Start 06/24/18 at 20:00 Atorvastatin Calcium (Lipitor) 10 mg QHS PO Last administered on 07/03/18 21:42; Admin Dose 10 MG; Start 06/24/18 at 21:00 Docusate Sodium (Colace) 100 mg DAILY PO Last administered on 07/04/18 09:13; Admin Dose 100 MG; Start 06/25/18 at 09:00 Folic Acid (Folic Acid) 1 mg DAILY PO Last administered on 07/04/18 09:13; Admin Dose 1 MG; Start 06/25/18 at 09:00 Levothyroxine Sodium (Synthroid) 25 mcg BEFORE BREAKFAST PO Last administered on 07/04/18 06:31; Admin Dose 25 MCG; Start 06/25/18 at 07:00 Metoprolol Tartrate (Lopressor) 12.5 mg BID PO Last administered on 07/04/18 09:13; Admin Dose 12.5 MG; Start 06/24/18 at 21:00 Mirtazapine (Remeron) 15 mg HS PO Last administered on 07/03/18 21:42; Admin Dose 15 MG; Start 06/24/18 at 21:00 Montelukast Sodium (Singulair) 10 mg QHS PO Last administered on 07/03/18 21:42; Admin Dose 10 MG; Start 06/24/18 at 21:00 Ropinirole HCl (Requip) 1 mg HS PO Last administered on 07/03/18 21:42; Admin Dose 1 MG; Start 06/24/18 at 21:00 Sevelamer Carbonate (Renvela) 1.6 gm WITH MEALS PO Last administered on 07/04/18 12:42; Admin Dose 1.6 GM; Start 06/25/18 at 07:55 Tamsulosin HCl (Flomax) 0.4 mg HS PO Last administered on 07/03/18 21:42; Admin Dose 0.4 MG; Start 06/24/18 at 21:00 Lorazepam (Ativan) 1 mg Q6H PRN PO anxiety Last administered on 07/04/18 03:02; Admin Dose 1 MG; Start 06/24/18 at 20:00 Epoetin Jamar (Epogen (Esrd)) 10,000 units MoWeFr@17 SC Last administered on 07/03/18 21:44; Admin Dose 10,000 UNITS; Start 06/26/18 at 17:00 Hydralazine HCl (Apresoline) 10 mg Q6H PRN IV ELEVATED BLOOD PRESSURE; Start 06/26/18 at 00:00 Olanzapine (Zyprexa) 5 mg BID PO Last administered on 07/04/18 09:13; Admin Dose 5 MG; Start 06/26/18 at 21:00 Trazodone HCl (Desyrel) 25 mg HS PO Last administered on 07/03/18 21:42; Admin Dose 25 MG; Start 07/01/18 at 21:00 Carisoprodol (Soma) 350 mg Q8H PRN PO muscle spasms Last administered on 07/02/18 06:24; Admin Dose 350 MG; Start 07/01/18 at 20:00 Haloperidol (Haldol) 2 mg Q4H PRN IM AGITATION/ANXIETY; Start 07/01/18 at 21:00 Calcium Carbonate (Tums) 500 mg Q4H PRN PO HEARTBURN; Start 07/01/18 at 21:00 Pantoprazole (Protonix Tab) 40 mg BID PO Last administered on 07/04/18 06:31; Admin Dose 40 MG; Start 07/02/18 at 06:00 VTE Prophylaxis Risk score (from Nsg)>0 risk: 3 SCD applied (from Nsg): Yes Lines/Catheters IV Catheter Type: Caraballo in Place: No Assessment/Plan Hospital Course 72-year-old male on hemodialysis, had urinary retention on admission and he un derwent straight cath. Since then he has been voiding and the postvoid residual by bladder scan has ranged between 68 mL and 13 mL the last time today. We will continue to check his bladder with a bladder scan once a day to make sure he does not go a retention and if the bladder is distended do straight cath on. BEJJANI,RICKY K MD Jul 04, 2018 14:27
[2018-07-04 19:10] VITALS: BP 150/60; PULSE 96; RESP 21
[2018-07-04] MEDS: ROPINIROLE 1 MG TAB PO SCH (20:14)
[2018-07-04] MEDS: MIRTAZAPINE 15 MG TAB PO SCH (20:14)
[2018-07-04] MEDS: TAMSULOSIN (SR) 0.4 MG CAP PO SCH (20:14)
[2018-07-04] MEDS: traZODone 50 MG TAB PO SCH (20:14)
[2018-07-04] MEDS: ATORVASTATIN 10 MG TAB PO SCH (20:15)
[2018-07-04] MEDS: MONTELUKAST 10 MG TAB PO SCH (20:16)
--- NOTE | 2018-07-04 21:14 | PN ---
DATE: 07/04/2018 SUBJECTIVE: The patient is seen, alert, less confused. He is comfortable. The patient has a sitter . OBJECTIVE: VITAL SIGNS: Temperature 98.4, pulse 90, respirations 16, blood pressure 137/67, saturation 98% on 2 liters. GENERAL: No acute distress. HEENT: Atraumatic and normocephalic. CARDIOVASCULAR: S1, S2, regular rate. LUNGS: Clear. ABDOMEN: Soft, nontender. EXTREMITIES: No clubbing, cyanosis, or edema. LABORATORY DATA: Done on 07/03/2018 shows white count 3.8, hemoglobin 8.5. Chemistries: BUN 40, cr eatinine 6.98. This was yesterday. Urine culture and MRSA screening negative. MEDICATIONS: 1. Protonix. 2. Trazodone 3. Haldol. 4. Calcium carbonate. 5. Soma. 6. Zyprexa. 7. Epogen. 8. Hydralazine. 9. Colace. 10. Folic acid. 11. Renvela. 12. Synthroid. 13. Heparin. 14. DuoNeb. 15. Lipitor. 16. Lopressor. 17. Remeron. 18. Singulair. 19. Requip. 20. Flomax. 21. Ativan. 22. Zofran. 23. Tylenol. 24. Milk of magnesia. Noted pulmonary recommendations. Update form. Awaiting again case management for placement. ASSESSMENT AND PLAN: This is a 72-year-old [place]-speaking male with history of end-stage renal dis ease, COPD, anxiety disorder, presents with acute encephalopathy, hypercapnic respiratory failure. 1. Respiratory. Continue p.r.n. BiPAP. O2 support, breathing treatment. Status post treatment fo r pneumonia. 2. Cardiovascular. Continue deep vein thrombosis prophylaxis. Vitals are stable. 3. Infectious disease, off antibiotics. 4. Urinary retention. Continue Flomax. In and out catheter p.r.n. 5. Urology is following. 6. Hypothyroidism, on Synthroid. 7. Anemia, status post 1 unit of PRBC. Follow up hemoglobin and hematocrit. Continue Epogen. 8. Restless leg syndrome. Continue Requip. 9. End-stage renal disease, dialysis 3 times a week. 10. Constipation. Stool softeners. 11. packaging manager assisting with placement as the patient currently has a sitter, which makes it more challenging, but overall patient is improving and medically stable for discharge. We will follow up . Dictated By: LEONORA SNIDER/VIKTOR Conf#: [id number] DID#: [id number] CC: CINDY BOUDREAUX GRADING SUPERVISOR; LEONORA LOUISE MD;*EndCC*
[2018-07-04 21:45] VITALS: BP 140/69; PULSE 84; RESP 22
[2018-07-05] MEDS: ALBUTEROL/IPRATROPIUM (NEB) 3 ML AMP NEB SCH ×6 (01:01→20:37)
[2018-07-05 02:00] VITALS: BP 139/69; PULSE 84; RESP 22
[2018-07-05] MEDS: LEVOTHYROXINE 25 MCG TAB PO SCH (06:00)
[2018-07-05 07:34] VITALS: BP 141/62; PULSE 92; RESP 18
[2018-07-05] MEDS: SEVELAMER CARBONATE 0.8 GM PKT PO SCH ×3 (08:26→17:35)
[2018-07-05] MEDS: HEPARIN 5,000 UNIT/1 ML VIAL SC SCH ×2 (08:30→20:56)
[2018-07-05] MEDS: METOPROLOL 25 MG TAB PO SCH ×2 (08:32→20:46)
[2018-07-05] MEDS: DOCUSATE SODIUM 100 MG CAP PO SCH (08:32)
[2018-07-05] MEDS: OLANZAPINE 5 MG TAB PO SCH ×2 (08:32→20:45)
[2018-07-05] MEDS: PANTOPRAZOLE (EC) 40 MG TAB PO SCH ×2 (08:33→20:46)
[2018-07-05] MEDS: FOLIC ACID 1 MG TAB PO SCH (08:33)
--- NOTE | 2018-07-05 09:19 | PN ---
Date/Time of Note Date/Time of Note DATE: 07/05/18 TIME: 09:19 Assessment/Plan VTE Prophylaxis Risk score (from Nsg)>0 risk: 4 SCD applied (from Nsg): No SCD contraindicated: other Pharmacological prophylaxis: other Lines/Catheters IV Catheter Type (from Nrs): Peripheral IV Urinary Cath still in place: No Assessment/Plan Hospital Course SUBJECTIVE: The patient is stable, no acute events overnight. No fevers, chills, nausea, or vomiting. last hd was 2 days ago there is a sitter at the bedside OBJECTIVE: HEENT: Head is normocephalic. NECK: Supple. HEART: Regular rate. LUNGS: Show diminished breath sounds at the base. ABDOMEN: Soft, nontender to palpation without rebound or guarding. EXTREMITIES: Negative for clubbing, cyanosis, no edema. DERMATOLOGIC: No rashes. MUSCULOSKELETAL: No joint effusion. NEUROLOGIC: No change in exam. MEDICATIONS: Reviewed. ASSESSMENT AND PLAN: 1. End-stage renal disease. The patient will remain on MWF dialysis schedule. next hd in am 2. Anemia. Continue to monitor hemoglobin and hematocrit levels. We will give Epogen with dialysis. 3. Mineral bone disorder, monitor calcium and phosphorus levels. 4. Acute hypoxemic respiratory failure secondary to chronic obstructive pulmonary disease exacerbation, improving. Continue medical management. 5. Encephalopathy, etiology is multifactorial. Continue to monitor. Follow up with psychiatry. 6. Anxiety disorder. Continue current treatment plan. 7. Coronary artery disease. Continue medical management. 8. History of restless legs syndrome. 9. Benign prostatic hypertrophy. Continue Flomax. 10. Hypothyroidism. Continue Synthroid. 11. Urinary retention. Continue to monitor. Continue Flomax. Result Diagram: 07/03/18 0443 07/03/18 0443 Results 24hrs Laboratory Tests Test 07/04/18 15:00 07/05/18 06:42 Stool Occult Blood NEGATIVE Lab Scanned Report BLOOD TRANSFUSION Exam/Review of Systems Exam Vitals Vital Signs Date Temp Pulse Resp B/P (MAP) Pulse Ox O2 O2 Flow FiO2 Time Delivery Rate 07/05/18 98.0 92 18 141/62 97 Mechanical 07:34 (88) Ventilator Nasal Cannula 07/05/18 2.0 06:25 07/05/18 28 06:25 Intake and Output 07/04/18 07/04/18 07/05/18 1515:00 23:00 07:00 IntakeIntake Total 640 ml 240 ml BalanceBalance 640 ml 240 ml Results Results 24hrs Laboratory Tests Test 07/04/18 15:00 07/05/18 06:42 Stool Occult Blood NEGATIVE Lab Scanned Report BLOOD TRANSFUSION Medications Medication Current Medications IV Flush (NS 3 ml) 3 ml PER PROTOCOL IV ; Start 06/24/18 at 20:00 Lorazepam (Ativan) 0.5 mg Q3H PRN IV .ANXIETY Last administered on 07/02/18 00:19; Admin Dose 0.5 MG; Start 06/24/18 at 20:00 Ondansetron HCl (Zofran Inj) 4 mg Q6H PRN IV NAUSEA/VOMITING Last administered on 07/01/18 20:42; Admin Dose 4 MG; Start 06/24/18 at 20:00 Acetaminophen (Tylenol Tab) 650 mg Q6H PRN PO .PAIN 1-3 OR TEMP Last administered on 07/02/18 21:56; Admin Dose 650 MG; Start 06/24/18 at 20:00 Docusate Sodium (Colace) 100 mg Q12H PRN PO .CONSTIPATION Last administered on 07/02/18 17:15; Admin Dose 100 MG; Start 06/24/18 at 20:00 Magnesium Hydroxide (Milk Of Mag) 30 ml DAILY PRN PO .CONSTIPATION Last administered on 07/02/18 17:15; Admin Dose 30 ML; Start 06/24/18 at 20:00 Heparin Sodium (Porcine) (Heparin (5000 Units/1ml)) 5,000 unit Q12 SC Last administered on 07/05/18 08:30; Admin Dose 5,000 UNIT; Start 06/24/18 at 21:00 Albuterol/ Ipratropium (Duoneb) 3 ml Q4H RESP THERAPY NEB Last administered on 07/05/18 06:30; Admin Dose 3 ML; Start 06/24/18 at 21:00 Albuterol/ Ipratropium (Duoneb) 3 ml Q2H RESP THERAPY PRN NEB SHORTNESS OF BREATH; Start 06/24/18 at 20:00 Atorvastatin Calcium (Lipitor) 10 mg QHS PO Last administered on 07/04/18 20:15; Admin Dose 10 MG; Start 06/24/18 at 21:00 Docusate Sodium (Colace) 100 mg DAILY PO Last administered on 07/05/18 08:32; Admin Dose 100 MG; Start 06/25/18 at 09:00 Folic Acid (Folic Acid) 1 mg DAILY PO Last administered on 07/05/18 08:33; Admin Dose 1 MG; Start 06/25/18 at 09:00 Levothyroxine Sodium (Synthroid) 25 mcg BEFORE BREAKFAST PO Last administered on 07/05/18 06:00; Admin Dose 25 MCG; Start 06/25/18 at 07:00 Metoprolol Tartrate (Lopressor) 12.5 mg BID PO Last administered on 07/05/18 08:32; Admin Dose 12.5 MG; Start 06/24/18 at 21:00 Mirtazapine (Remeron) 15 mg HS PO Last administered on 07/04/18 20:14; Admin Dose 15 MG; Start 06/24/18 at 21:00 Montelukast Sodium (Singulair) 10 mg QHS PO Last administered on 07/04/18 20:16; Admin Dose 10 MG; Start 06/24/18 at 21:00 Ropinirole HCl (Requip) 1 mg HS PO Last administered on 07/04/18 20:14; Admin Dose 1 MG; Start 06/24/18 at 21:00 Sevelamer Carbonate (Renvela) 1.6 gm WITH MEALS PO Last administered on 07/05/18 08:26; Admin Dose 1.6 GM; Start 06/25/18 at 07:55 Tamsulosin HCl (Flomax) 0.4 mg HS PO Last administered on 07/04/18 20:14; Admin Dose 0.4 MG; Start 06/24/18 at 21:00 Lorazepam (Ativan) 1 mg Q6H PRN PO anxiety Last administered on 07/04/18 03:02; Admin Dose 1 MG; Start 06/24/18 at 20:00 Epoetin Jamar (Epogen (Esrd)) 10,000 units MoWeFr@17 SC Last administered on 07/03/18 21:44; Admin Dose 10,000 UNITS; Start 06/26/18 at 17:00 Hydralazine HCl (Apresoline) 10 mg Q6H PRN IV ELEVATED BLOOD PRESSURE; Start 06/26/18 at 00:00 Olanzapine (Zyprexa) 5 mg BID PO Last administered on 07/05/18 08:32; Admin Dose 5 MG; Start 06/26/18 at 21:00 Trazodone HCl (Desyrel) 25 mg HS PO Last administered on 07/04/18 20:14; Admin Dose 25 MG; Start 07/01/18 at 21:00 Carisoprodol (Soma) 350 mg Q8H PRN PO muscle spasms Last administered on 07/02/18 06:24; Admin Dose 350 MG; Start 07/01/18 at 20:00 Haloperidol (Haldol) 2 mg Q4H PRN IM AGITATION/ANXIETY; Start 07/01/18 at 21:00 Calcium Carbonate (Tums) 500 mg Q4H PRN PO HEARTBURN; Start 07/01/18 at 21:00 Pantoprazole (Protonix Tab) 40 mg BID PO Last administered on 07/05/18 08:33; Admin Dose 40 MG; Start 07/02/18 at 06:00 Simethicone (Mylicon) 80 mg Q6H PRN PO DISTENSION/GAS/BLOATING Last administered on 07/04/18 22:42; Admin Dose 80 MG; Start 07/04/18 at 22:00 SANKET SOLIMAN DO Jul 05, 2018 09:19
[2018-07-05] MEDS: LORAZEPAM 2 MG INJ IV PRN ×3 (10:35→20:41)
--- NOTE | 2018-07-05 11:47 | CONS ---
Consult Date/Type/Reason Admit Date/Time Jun 24, 2018 at 17:49 Initial Consult Date 06/29/18 Type of Consultation: Urology Reason for Consultation Urinary retention Requesting Provider: LEONORA LOUISE MD Date/Time of Note DATE: 07/05/18 TIME: 11:37 Subjective Patient appears to be better and more cooperative. He is ambulating around. Objective Vitals Vital Signs Date Temp Pulse Resp B/P (MAP) Pulse Ox O2 O2 Flow FiO2 Time Delivery Rate 07/05/18 98.0 92 18 141/62 97 Mechanical 07:34 (88) Ventilator Nasal Cannula 07/05/18 2.0 06:25 07/05/18 28 06:25 Intake and Output 07/04/18 07/04/18 07/05/18 1515:00 23:00 07:00 IntakeIntake Total 640 ml 240 ml BalanceBalance 640 ml 240 ml Exam The abdomen is soft. Results/Medications Result Diagram: 07/03/18 0443 07/03/18 0443 Results 24 hrs Laboratory Tests Test 07/04/18 15:00 07/05/18 06:42 Stool Occult Blood NEGATIVE Lab Scanned Report BLOOD TRANSFUSION Home Meds Active Scripts Mirtazapine* (Mirtazapine*) 15 Mg Tablet, 15 MG PO HS for 30 Days, #60 TAB take 15mg for 1 week and increase to 30mg at night Prov:HANK LUO MD 06/12/18 Clonazepam* (Clonazepam*) 1 Mg Tablet, 1 MG PO BID PRN for ANXIETY for 10 Days, #20 TAB Prov:HANK LUO MD 06/12/18 Reported Medications Docusate Sodium* (Docusate Sodium*) 100 Mg Capsule, 100 MG PO DAILY, #30 CAP 06/01/18 Tamsulosin Hcl* (Flomax*) 0.4 Mg Cap.er.24h, 0.4 MG PO HS, CAP 06/01/18 Ropinirole Hcl* (Ropinirole Hcl*) 1 Mg Tablet, 1 MG PO HS, TAB 06/01/18 Metoprolol Tartrate* (Lopressor*) 25 Mg Tab, 12.5 MG PO BID, #60 TAB 06/01/18 Budesonide-Formoterol Fumarate* (Symbicort*) 160-4.5 Hfa.aer.ad, 2 PUFF INHALATION BID, #1 EACH 06/01/18 Atorvastatin Calcium (Atorvastatin Calcium) 10 Mg Tablet, 10 MG PO QHS, #30 TAB 06/01/18 Aspirin-Dipyridamole* (Aggrenox*) 25-200 Mg Cpmp.12hr, 1 CAP PO BID, CAP 05/11/18 Sevelamer Carbonate* (Renvela*) 800 Mg Tablet, 1600 MG PO WITH MEALS, TAB 05/11/18 Montelukast Sodium* (Montelukast Sodium*) 10 Mg Tablet, 10 MG PO QHS, #30 TAB 05/11/18 Folic Acid* (Folic Acid*) 1 Mg Tablet, 1 MG PO DAILY, TAB 05/11/18 Levothyroxine Sodium* (Levothyroxine Sodium*) 25 Mcg Tablet, 25 MCG PO BEFORE BREAKFAST, #30 TAB 05/11/18 Febuxostat* (Uloric*) 40 Mg Tablet, 40 MG PO DAILY, TAB 05/11/18 Medications Current Medications IV Flush (NS 3 ml) 3 ml PER PROTOCOL IV ; Start 06/24/18 at 20:00 Lorazepam (Ativan) 0.5 mg Q3H PRN IV .ANXIETY Last administered on 07/05/18 10:35; Admin Dose 0.5 MG; Start 06/24/18 at 20:00 Ondansetron HCl (Zofran Inj) 4 mg Q6H PRN IV NAUSEA/VOMITING Last administered on 07/01/18 20:42; Admin Dose 4 MG; Start 06/24/18 at 20:00 Acetaminophen (Tylenol Tab) 650 mg Q6H PRN PO .PAIN 1-3 OR TEMP Last administered on 07/02/18 21:56; Admin Dose 650 MG; Start 06/24/18 at 20:00 Docusate Sodium (Colace) 100 mg Q12H PRN PO .CONSTIPATION Last administered on 07/02/18 17:15; Admin Dose 100 MG; Start 06/24/18 at 20:00 Magnesium Hydroxide (Milk Of Mag) 30 ml DAILY PRN PO .CONSTIPATION Last administered on 07/02/18 17:15; Admin Dose 30 ML; Start 06/24/18 at 20:00 Heparin Sodium (Porcine) (Heparin (5000 Units/1ml)) 5,000 unit Q12 SC Last administered on 07/05/18 08:30; Admin Dose 5,000 UNIT; Start 06/24/18 at 21:00 Albuterol/ Ipratropium (Duoneb) 3 ml Q4H RESP THERAPY NEB Last administered on 07/05/18 06:30; Admin Dose 3 ML; Start 06/24/18 at 21:00 Albuterol/ Ipratropium (Duoneb) 3 ml Q2H RESP THERAPY PRN NEB SHORTNESS OF BREATH; Start 06/24/18 at 20:00 Atorvastatin Calcium (Lipitor) 10 mg QHS PO Last administered on 07/04/18 20:15; Admin Dose 10 MG; Start 06/24/18 at 21:00 Docusate Sodium (Colace) 100 mg DAILY PO Last administered on 07/05/18 08:32; Admin Dose 100 MG; Start 06/25/18 at 09:00 Folic Acid (Folic Acid) 1 mg DAILY PO Last administered on 07/05/18 08:33; Admin Dose 1 MG; Start 06/25/18 at 09:00 Levothyroxine Sodium (Synthroid) 25 mcg BEFORE BREAKFAST PO Last administered on 07/05/18 06:00; Admin Dose 25 MCG; Start 06/25/18 at 07:00 Metoprolol Tartrate (Lopressor) 12.5 mg BID PO Last administered on 07/05/18 08:32; Admin Dose 12.5 MG; Start 06/24/18 at 21:00 Mirtazapine (Remeron) 15 mg HS PO Last administered on 07/04/18 20:14; Admin Dose 15 MG; Start 06/24/18 at 21:00 Montelukast Sodium (Singulair) 10 mg QHS PO Last administered on 07/04/18 20:16; Admin Dose 10 MG; Start 06/24/18 at 21:00 Ropinirole HCl (Requip) 1 mg HS PO Last administered on 07/04/18 20:14; Admin Dose 1 MG; Start 06/24/18 at 21:00 Sevelamer Carbonate (Renvela) 1.6 gm WITH MEALS PO Last administered on 07/05/18 08:26; Admin Dose 1.6 GM; Start 06/25/18 at 07:55 Tamsulosin HCl (Flomax) 0.4 mg HS PO Last administered on 07/04/18 20:14; Admin Dose 0.4 MG; Start 06/24/18 at 21:00 Lorazepam (Ativan) 1 mg Q6H PRN PO anxiety Last administered on 07/04/18 03:02; Admin Dose 1 MG; Start 06/24/18 at 20:00 Epoetin Jamar (Epogen (Esrd)) 10,000 units MoWeFr@17 SC Last administered on 07/03/18 21:44; Admin Dose 10,000 UNITS; Start 06/26/18 at 17:00 Hydralazine HCl (Apresoline) 10 mg Q6H PRN IV ELEVATED BLOOD PRESSURE; Start 06/26/18 at 00:00 Olanzapine (Zyprexa) 5 mg BID PO Last administered on 07/05/18 08:32; Admin Dose 5 MG; Start 06/26/18 at 21:00 Trazodone HCl (Desyrel) 25 mg HS PO Last administered on 07/04/18 20:14; Admin Dose 25 MG; Start 07/01/18 at 21:00 Carisoprodol (Soma) 350 mg Q8H PRN PO muscle spasms Last administered on 07/02/18 06:24; Admin Dose 350 MG; Start 07/01/18 at 20:00 Haloperidol (Haldol) 2 mg Q4H PRN IM AGITATION/ANXIETY; Start 07/01/18 at 21:00 Calcium Carbonate (Tums) 500 mg Q4H PRN PO HEARTBURN; Start 07/01/18 at 21:00 Pantoprazole (Protonix Tab) 40 mg BID PO Last administered on 07/05/18 08:33; Admin Dose 40 MG; Start 07/02/18 at 06:00 Simethicone (Mylicon) 80 mg Q6H PRN PO DISTENSION/GAS/BLOATING Last administered on 07/04/18 22:42; Admin Dose 80 MG; Start 07/04/18 at 22:00 Assessment/Plan Hospital Course (Demo Recall) 72-year-old Croatian-speaking male, was noted to be slightly more anxious and was found to be encephalopathic and confused and have shortness of breath. The patient is known to have a history of end-stage renal disease and has been on dialysis 3 days a week. He has had multiple admissions to the hospital because of anxiety pneumonia and respiratory failure. According to the daughter the patient does urinate small amount. 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 He also has been taking tamsulosin at home to help with his voiding. On admission he was found to be in urinary retention and was catheterized for 750 mL. Since then he is being monitored with the bladder scan and when the bladder volume is over 500 then to straight cath on him. Presently the bladder scan is showing about 50 mL therefore there is no need for straight catheterization RICKY BUENROSTRO MD Jul 05, 2018 11:47
--- NOTE | 2018-07-05 13:40 | CONS ---
Consult Date/Type/Reason Admit Date/Time Jun 24, 2018 at 17:49 Initial Consult Date 06/29/18 Type of Consultation: Pulm Requesting Provider: LEONORA LOUISE MD Date/Time of Note DATE: 07/05/18 TIME: 13:33 Subjective No events. Sitter a bedside. No c/o. Objective Vitals Vital Signs Date Temp Pulse Resp B/P (MAP) Pulse Ox O2 O2 Flow FiO2 Time Delivery Rate 07/05/18 Nasal 2.0 08:00 Cannula 07/05/18 98.0 92 18 141/62 97 07:34 (88) 07/05/18 28 06:25 Intake and Output 07/04/18 07/04/18 07/05/18 1515:00 23:00 07:00 IntakeIntake Total 640 ml 240 ml BalanceBalance 640 ml 240 ml Exam GENERAL: Well-nourished well-developed gentleman agitated. VITAL SIGNS: per chart NECK: Supple. No JVD or lymphadenopathy. CARDIAC EXAM: S1, S2. No added sounds or murmurs. CHEST: clear bilaterally, No added sounds, rales or wheezes ABDOMEN: Soft, nontender. No guarding or rebound. EXTREMITIES: No cyanosis, clubbing or edema. Results/Medications Result Diagram: 07/03/18 0443 07/03/18 0443 Results 24 hrs Laboratory Tests Test 07/04/18 15:00 07/05/18 06:42 Stool Occult Blood NEGATIVE Lab Scanned Report BLOOD TRANSFUSION Home Meds Active Scripts Mirtazapine* (Mirtazapine*) 15 Mg Tablet, 15 MG PO HS for 30 Days, #60 TAB take 15mg for 1 week and increase to 30mg at night Prov:HANK LUO MD 06/12/18 Clonazepam* (Clonazepam*) 1 Mg Tablet, 1 MG PO BID PRN for ANXIETY for 10 Days, #20 TAB Prov:HANK LUO MD 06/12/18 Reported Medications Docusate Sodium* (Docusate Sodium*) 100 Mg Capsule, 100 MG PO DAILY, #30 CAP 06/01/18 Tamsulosin Hcl* (Flomax*) 0.4 Mg Cap.er.24h, 0.4 MG PO HS, CAP 06/01/18 Ropinirole Hcl* (Ropinirole Hcl*) 1 Mg Tablet, 1 MG PO HS, TAB 06/01/18 Metoprolol Tartrate* (Lopressor*) 25 Mg Tab, 12.5 MG PO BID, #60 TAB 06/01/18 Budesonide-Formoterol Fumarate* (Symbicort*) 160-4.5 Hfa.aer.ad, 2 PUFF INHALATION BID, #1 EACH 06/01/18 Atorvastatin Calcium (Atorvastatin Calcium) 10 Mg Tablet, 10 MG PO QHS, #30 TAB 06/01/18 Aspirin-Dipyridamole* (Aggrenox*) 25-200 Mg Cpmp.12hr, 1 CAP PO BID, CAP 05/11/18 Sevelamer Carbonate* (Renvela*) 800 Mg Tablet, 1600 MG PO WITH MEALS, TAB 05/11/18 Montelukast Sodium* (Montelukast Sodium*) 10 Mg Tablet, 10 MG PO QHS, #30 TAB 05/11/18 Folic Acid* (Folic Acid*) 1 Mg Tablet, 1 MG PO DAILY, TAB 05/11/18 Levothyroxine Sodium* (Levothyroxine Sodium*) 25 Mcg Tablet, 25 MCG PO BEFORE BREAKFAST, #30 TAB 05/11/18 Febuxostat* (Uloric*) 40 Mg Tablet, 40 MG PO DAILY, TAB 05/11/18 Medications Current Medications IV Flush (NS 3 ml) 3 ml PER PROTOCOL IV ; Start 06/24/18 at 20:00 Lorazepam (Ativan) 0.5 mg Q3H PRN IV .ANXIETY Last administered on 07/05/18at 10:35; Admin Dose 0.5 MG; Start 06/24/18 at 20:00 Ondansetron HCl (Zofran Inj) 4 mg Q6H PRN IV NAUSEA/VOMITING Last administered on 07/01/18at 20:42; Admin Dose 4 MG; Start 06/24/18 at 20:00 Acetaminophen (Tylenol Tab) 650 mg Q6H PRN PO .PAIN 1-3 OR TEMP Last administered on 07/02/18at 21:56; Admin Dose 650 MG; Start 06/24/18 at 20:00 Docusate Sodium (Colace) 100 mg Q12H PRN PO .CONSTIPATION Last administered on 07/02/18at 17:15; Admin Dose 100 MG; Start 06/24/18 at 20:00 Magnesium Hydroxide (Milk Of Mag) 30 ml DAILY PRN PO .CONSTIPATION Last administered on 07/02/18 17:15; Admin Dose 30 ML; Start 06/24/18 at 20:00 Heparin Sodium (Porcine) (Heparin (5000 Units/1ml)) 5,000 unit Q12 SC Last administered on 07/05/18 08:30; Admin Dose 5,000 UNIT; Start 06/24/18 at 21:00 Albuterol/ Ipratropium (Duoneb) 3 ml Q4H RESP THERAPY NEB Last administered on 07/05/18 06:30; Admin Dose 3 ML; Start 06/24/18 at 21:00 Albuterol/ Ipratropium (Duoneb) 3 ml Q2H RESP THERAPY PRN NEB SHORTNESS OF BREATH; Start 06/24/18 at 20:00 Atorvastatin Calcium (Lipitor) 10 mg QHS PO Last administered on 07/04/18 20:15; Admin Dose 10 MG; Start 06/24/18 at 21:00 Docusate Sodium (Colace) 100 mg DAILY PO Last administered on 07/05/18 08:32; Admin Dose 100 MG; Start 06/25/18 at 09:00 Folic Acid (Folic Acid) 1 mg DAILY PO Last administered on 07/05/18 08:33; Admin Dose 1 MG; Start 06/25/18 at 09:00 Levothyroxine Sodium (Synthroid) 25 mcg BEFORE BREAKFAST PO Last administered on 07/05/18 06:00; Admin Dose 25 MCG; Start 06/25/18 at 07:00 Metoprolol Tartrate (Lopressor) 12.5 mg BID PO Last administered on 07/05/18 08:32; Admin Dose 12.5 MG; Start 06/24/18 at 21:00 Mirtazapine (Remeron) 15 mg HS PO Last administered on 07/04/18 20:14; Admin Dose 15 MG; Start 06/24/18 at 21:00 Montelukast Sodium (Singulair) 10 mg QHS PO Last administered on 07/04/18 20:16; Admin Dose 10 MG; Start 06/24/18 at 21:00 Ropinirole HCl (Requip) 1 mg HS PO Last administered on 07/04/18 20:14; Admin Dose 1 MG; Start 06/24/18 at 21:00 Sevelamer Carbonate (Renvela) 1.6 gm WITH MEALS PO Last administered on 07/05/18 12:14; Admin Dose 1.6 GM; Start 06/25/18 at 07:55 Tamsulosin HCl (Flomax) 0.4 mg HS PO Last administered on 07/04/18 20:14; Admin Dose 0.4 MG; Start 06/24/18 at 21:00 Lorazepam (Ativan) 1 mg Q6H PRN PO anxiety Last administered on 07/04/18 03:02; Admin Dose 1 MG; Start 06/24/18 at 20:00 Epoetin Jamar (Epogen (Esrd)) 10,000 units MoWeFr@17 SC Last administered on 07/03/18 21:44; Admin Dose 10,000 UNITS; Start 06/26/18 at 17:00 Hydralazine HCl (Apresoline) 10 mg Q6H PRN IV ELEVATED BLOOD PRESSURE; Start 06/26/18 at 00:00 Olanzapine (Zyprexa) 5 mg BID PO Last administered on 07/05/18 08:32; Admin Dose 5 MG; Start 06/26/18 at 21:00 Trazodone HCl (Desyrel) 25 mg HS PO Last administered on 07/04/18 20:14; Admin Dose 25 MG; Start 07/01/18 at 21:00 Carisoprodol (Soma) 350 mg Q8H PRN PO muscle spasms Last administered on 07/02/18 06:24; Admin Dose 350 MG; Start 07/01/18 at 20:00 Haloperidol (Haldol) 2 mg Q4H PRN IM AGITATION/ANXIETY; Start 07/01/18 at 21:00 Calcium Carbonate (Tums) 500 mg Q4H PRN PO HEARTBURN; Start 07/01/18 at 21:00 Pantoprazole (Protonix Tab) 40 mg BID PO Last administered on 07/05/18 08:33; Admin Dose 40 MG; Start 07/02/18 at 06:00 Simethicone (Mylicon) 80 mg Q6H PRN PO DISTENSION/GAS/BLOATING Last admini stered on 07/04/18 22:42; Admin Dose 80 MG; Start 07/04/18 at 22:00 Assessment/Plan Assessment/Plan (Daily) IMP: 1. Acute on chronic hypoxemic and hypercapnic respiratory failure secondary to chronic obstructive pulmonary disease exacerbation. 2. Underlying significant encephalopathy complicated by likely dementia and psychiatric disease. 3. End-stage renal failure on hemodialysis; 4. Anemia. RECS: 1. Aspiration precautions 2. Bronchodilators 3. BiPAP prn 4. HD/UF 5. DVT and GI prophylaxis. FATIMAH ALCARAZ MD Jul 05, 2018 13:40
[2018-07-05] MEDS: MAGNESIUM HYDROXIDE 30ML CUP PO PRN (14:30)
[2018-07-05] MEDS: LORAZEPAM 1 MG TAB PO PRN (17:35)
--- NOTE | 2018-07-05 18:07 | PN ---
DATE: 07/05/2018 SUBJECTIVE: The patient was seen, remains agitated slightly. The patient has not been sleeping much , sitting in the chair, overall comfortable, is using oxygen. PHYSICAL EXAMINATION: VITAL SIGNS: Temperature 98, pulse 85, respiration 18 to 26, blood pressure 141/62, saturation 95% o n 2 liters. GENERAL: No acute distress. HEENT: Normocephalic, atraumatic, pale. CARDIOVASCULAR: S1, S2, regular rate. LUNGS: Clear, slightly tachypneic. ABDOMEN: Soft. EXTREMITIES: No clubbing, cyanosis or edema. LABORATORY DATA: No new labs today. MEDICATIONS: 1. Simethicone. 2. Protonix. 3. Trazodone. 4. Haldol. 5. Calcium carbonate. 6. Soma. 7. Zyprexa. 8. Epogen. 9. Hydralazine. 10. Colace. 11. Folic acid. 12. Renvela. 13. Synthroid. 14. Heparin. 15. DuoNeb. 16. Lipitor. 17. Lopressor. 18. Remeron. 19. Singulair. 20. Requip. 21. Flomax. 22. Ativan. 23. Zofran. 24. Tylenol. 25. Milk of Magnesia. ASSESSMENT AND PLAN: This is a 72-year-old [place] Islander-speaking male with history of end-stage renal dis ease, chronic obstructive pulmonary disease, anxiety disorder, presented with encephalopathy, hyperca pnic respiratory failure. 1. Respiratory. Continue p.r.n. BiPAP, O2 support, breathing treatment. Try to avoid steroids, sta tus post treatment for pneumonia. 2. Cardiovascular. Continue deep venous thrombosis prophylaxis. 3. Infectious disease, off antibiotics. 4. Urinary retention on Flomax. Urology is following. 5. Hypothyroidism, on Synthroid. 6. Anemia. Transfuse p.r.n. Follow up labs tomorrow. 7. Restless leg syndrome, on Requip. 8. End-stage renal disease. Next dialysis is due tomorrow, otherwise on Friday, Friday and y. 9. Constipation. Continue stool softener. 10. hospital manager is assisting with placement and preferably to a [place] Islander speaking facility. We will follow. Dictated By: LEONORA SNIDER/VIKTOR Conf#: [id number] [facility]#: [id number] CC: CINDY BOUDREAUX APPLICATION INTEGRATION SPECIALIST;*EndCC*
[2018-07-05 19:44] VITALS: BP 147/71; PULSE 86; RESP 18
[2018-07-05] MEDS: ATORVASTATIN 10 MG TAB PO SCH (20:45)
[2018-07-05] MEDS: ROPINIROLE 1 MG TAB PO SCH (20:45)
[2018-07-05] MEDS: MIRTAZAPINE 15 MG TAB PO SCH (20:45)
[2018-07-05] MEDS: traZODone 50 MG TAB PO SCH (20:46)
[2018-07-05] MEDS: MONTELUKAST 10 MG TAB PO SCH (20:46)
[2018-07-05] MEDS: TAMSULOSIN (SR) 0.4 MG CAP PO SCH (21:00)
[2018-07-05] MEDS ORDERED: traZODone 50 MG TAB PO SCH (21:00)
[2018-07-06] VITALS (18 sets, daily range): BP systolic 106–140; BP diastolic 45–89; PULSE 65–98; RESP 17–22
[2018-07-06] MEDS: LORAZEPAM 2 MG INJ IV PRN (00:20)
[2018-07-06] MEDS: ALBUTEROL/IPRATROPIUM (NEB) 3 ML AMP NEB SCH ×6 (01:14→22:11)
[2018-07-06] MEDS: LEVOTHYROXINE 25 MCG TAB PO SCH (05:11)
[2018-07-06] MEDS: LORAZEPAM 1 MG TAB PO PRN (05:11)
[2018-07-06] MEDS: PANTOPRAZOLE (EC) 40 MG TAB PO SCH ×2 (08:51→21:12)
[2018-07-06] MEDS: OLANZAPINE 5 MG TAB PO SCH ×2 (08:51→21:11)
[2018-07-06] MEDS: METOPROLOL 25 MG TAB PO SCH ×2 (08:51→21:12)
[2018-07-06] MEDS: DOCUSATE SODIUM 100 MG CAP PO SCH (08:51)
[2018-07-06] MEDS: SEVELAMER CARBONATE 0.8 GM PKT PO SCH ×3 (08:52→19:00)
[2018-07-06] MEDS: FOLIC ACID 1 MG TAB PO SCH (08:52)
--- NOTE | 2018-07-06 08:53 | PN ---
DATE: 07/06/2018 SUBJECTIVE: The patient is stable, no events overnight. OBJECTIVE: VITAL SIGNS: Blood pressure is 140/61, respiration 18, pulse 81, temperature 98.6. HEENT: Head is normocephalic. NECK: Supple. HEART: Regular rate. LUNGS: Show diminished breath sounds at base. ABDOMEN: Soft, nontender to palpation without rebound or guarding. EXTREMITIES: Negative for clubbing, cyanosis, no edema. DERMATOLOGIC: No rashes. MUSCULOSKELETAL: No joint effusion. NEUROLOGIC: No change in exam. MEDICATIONS: Reviewed. LABORATORY DATA: Has been reviewed. ASSESSMENT AND PLAN: 1. End-stage renal disease. The patient is on hemodialysis. Plan for dialysis today. We will dial yze 3 hours 2k bath, calcium 2.5. 2. Anemia. Continue to monitor hemoglobin and hematocrit levels. Will give Epogen with hemodialysi s. 2. Mineral bone disorder, monitor calcium and phosphatase levels. 3. Acute hypoxemic respiratory failure secondary to chronic obstructive pulmonary disease exacerbati on, improved. Continue to monitor. 4. Encephalopathy. Etiology is multifactorial. Continue to monitor. Follow up with psychiatry. 5. Anxiety disorder. Continue current treatment plan. 6. Coronary artery disease. Continue medical management. 7. History of restless leg syndrome. 8. Benign prostatic hypertrophy. Continue Flomax. 9. Hyperthyroidism. Continue Synthroid. Dictated By: KITA OLIVEIRA/VIKTOR Conf#: [id number] [facility]#: [id number]
[2018-07-06] MEDS: HEPARIN 5,000 UNIT/1 ML VIAL SC SCH ×2 (08:55→21:14)
--- NOTE | 2018-07-06 18:14 | PN ---
DATE: 07/06/2018 SUBJECTIVE: The patient is currently on hemodialysis. is at bedside. He is slightly less anxi ous. Slightly more drop in hemoglobin from 8.5 to 7.8. We will continue to monitor. PHYSICAL EXAMINATION: VITAL SIGNS: Temperature is 97.5, pulse 74, respirations 22, blood pressure 125/73, saturation 98%. GENERAL: In no acute distress. HEENT: Normocephalic, atraumatic, pale. CARDIOVASCULAR: S1, S2, regular rate. LUNGS: Clear. ABDOMEN: Soft, nontender. EXTREMITIES: No clubbing, cyanosis or edema. LABORATORY DATA: White count 5.5, hemoglobin 7.81, hematocrit 26, platelets 192 with normal differen tial. Chemistry: Sodium 142, potassium 5.3, chloride 107, bicarbonate 26, BUN is 66, creatinine 8.9 9, glucose of 80. MEDICATIONS: All meds were reviewed and include: 1. Simethicone. 2. Protonix. 3. Trazodone. 4. Haldol. 5. Calcium. 6. Soma. 7. Zyprexa. 8. Epogen. 9. Hydralazine. 10. Colace. 11. Folic acid. 12. Renvela. 13. Synthroid. 14. Heparin. 15. DuoNeb. 16. Lipitor. 17. Lopressor. 18. Remeron. 19. Singulair. 20. Requip. 21. Flomax. 22. Ativan. 23. Zofran. 24. Tylenol. 25. Milk of Magnesia. ASSESSMENT AND PLAN: This is a 72-year-old Bahamian-speaking male with history of end-stage renal dis ease, chronic obstructive pulmonary disease, anxiety disorder who presented with encephalopathy, hype rcapnic respiratory failure. 1. Respiratory. Continue p.r.n. BiPAP. O2 support, breathing treatments, stable status post treate d for pneumonia. 2. Cardiovascular. Continue deep venous thrombosis prophylaxis. May need to consider stopping the heparin due to anemia. 3. Infectious disease, off antibiotics. 4. Urinary retention. Continue Flomax. Urology has been following up. P.r.n. in and out catheteri zation for high residual. 5. Hypothyroidism. Continue Synthroid. 6. Anemia. Transfuse p.r.n. Epogen with dialysis. 7. Restless leg syndrome. Continue Requip. 8. End-stage renal disease. Dialysis today is being done and then he gets it every Friday, and Friday. 9. Constipation. Stool softeners. 10. Anxiety disorder. The patient is on trazodone, Haldol p.r.n., Zyprexa 5 mg b.i.d. The psychiat rist is seeing the patient as well intermittently. rehabilitation services manager is assisting with placement. We will follow. Dictated By: LEONORA SNIDER/VIKTOR Conf#: [id number] DID#: [id number] CC: CINDY BOUDREAUX MULTICULTURAL SERVICES LIBRARIAN;*EndCC*
[2018-07-06] MEDS: ROPINIROLE 1 MG TAB PO SCH (21:11)
[2018-07-06] MEDS: TAMSULOSIN (SR) 0.4 MG CAP PO SCH (21:11)
[2018-07-06] MEDS: MONTELUKAST 10 MG TAB PO SCH (21:11)
[2018-07-06] MEDS: MIRTAZAPINE 15 MG TAB PO SCH (21:12)
[2018-07-06] MEDS: ATORVASTATIN 10 MG TAB PO SCH (21:12)
[2018-07-06] MEDS: traZODone 50 MG TAB PO SCH (21:12)
[2018-07-06] MEDS: EPOETIN 10000 UNITS/1 ML INJ (ESRD) SC SCH (21:14)
[2018-07-07 02:12] VITALS: BP 135/65; PULSE 92; RESP 19
[2018-07-07] MEDS: ALBUTEROL/IPRATROPIUM (NEB) 3 ML AMP NEB SCH ×6 (02:16→22:28)
[2018-07-07] MEDS: LORAZEPAM 1 MG TAB PO PRN ×2 (03:51→23:46)
[2018-07-07] MEDS: LEVOTHYROXINE 25 MCG TAB PO SCH (06:26)
[2018-07-07 07:48] VITALS: BP 154/87; PULSE 91; RESP 22
--- NOTE | 2018-07-07 08:47 | PN ---
DATE: 07/07/2018 SUBJECTIVE: The patient is stable, no events overnight. OBJECTIVE: VITAL SIGNS: Blood pressure is 134/87, respirations 22, pulse 91, temperature 98.2. HEENT: Head is normocephalic. NECK: Supple. HEART: Regular rate. LUNGS: Show diminished breath sounds at the base. ABDOMEN: Soft, nontender to palpation without rebound or guarding. EXTREMITIES: Negative for clubbing, cyanosis, no edema. DERMATOLOGIC: No rashes. MUSCULOSKELETAL: No joint effusion. NEUROLOGIC: No change in exam. MEDICATIONS: Reviewed. LABORATORY DATA: From 07/06/2018 was reviewed. ASSESSMENT AND PLAN: 1. End-stage renal disease. The patient had hemodialysis yesterday, tolerated well. Plan is for di alysis again tomorrow. 2. Anemia. Continue to monitor hemoglobin and hematocrit levels. Continue Epogen with hemodialysis . 3. Mineral bone disorder, monitor calcium and phosphorus levels. 4. Hyperkalemia. Continue dialysis on low potassium bath. 5. Acute respiratory failure secondary to chronic obstructive pulmonary disease exacerbation, formerly [facility] ed. Continue to monitor. 6. Encephalopathy, etiology is multifactorial. Continue to monitor. Follow up with psychiatry. 7. Anxiety disorder. Continue current treatment plan. 8. Coronary artery disease. 9. History of restless leg syndrome. 10. Benign prostatic hypertrophy. Continue Flomax. 11. Hypothyroidism. Continue Synthroid. Dictated By: KITA OLIVEIRA/VIKTOR Conf#: [id number] DID#: [id number] CC: CINDY BOUDREAUX NP; LEONORA LOUISE MD;*End*
[2018-07-07] MEDS: FOLIC ACID 1 MG TAB PO SCH (09:19)
[2018-07-07] MEDS: OLANZAPINE 5 MG TAB PO SCH ×2 (09:19→20:29)
[2018-07-07] MEDS: PANTOPRAZOLE (EC) 40 MG TAB PO SCH ×2 (09:19→20:27)
[2018-07-07] MEDS: DOCUSATE SODIUM 100 MG CAP PO SCH (09:19)
[2018-07-07] MEDS: METOPROLOL 25 MG TAB PO SCH ×2 (09:20→20:29)
[2018-07-07] MEDS: HEPARIN 5,000 UNIT/1 ML VIAL SC SCH ×2 (09:25→20:33)
[2018-07-07] MEDS: SEVELAMER CARBONATE 0.8 GM PKT PO SCH ×3 (09:27→18:18)
[2018-07-07 14:29] VITALS: BP 141/62; PULSE 92; RESP 19
--- NOTE | 2018-07-07 18:01 | PN ---
DATE: 07/07/2018 SUBJECTIVE: The patient was seen, appears to be comfortable standing and walking ____ Portuguese transl ator and the patient complained of mild abdominal pain, otherwise feeling well. [facility]. PHYSICAL EXAMINATION: VITAL SIGNS: Temperature 98.1, pulse 85, respirations 16, blood pressure 141/63, saturation 96% on 2 liters. GENERAL: No acute distress. HEENT: Normocephalic, atraumatic, pale. CARDIOVASCULAR: S1 and S2, regular rate. LUNGS: Clear. ABDOMEN: Soft, nondistended, nontender. EXTREMITIES: No clubbing, cyanosis or edema. LABORATORY DATA: No new labs today. Labs on 07/06/2018 were reviewed. The patient is pending dialy sis tomorrow. MEDICATIONS: All reviewed. Most of them are p.r.n. They include: 1. Simethicone. 2. Protonix. 3. Trazodone. 4. Haldol. 5. Tums. 6. Soma. 7. Zyprexa. 8. Epogen. 9. Hydralazine. 10. Colace. 11. Folic acid. 12. Renvela. 13. Synthroid. 14. Heparin. 15. DuoNeb. 16. Lipitor. 17. ____. 18. Lopressor. 19. Remeron. 20. Singulair. 21. Requip. 22. Flomax. 23. Ativan. 24. Zofran. 25. Tylenol. 26. Colace. 27. Milk of Magnesia. ASSESSMENT AND PLAN: This is a 72-year-old Portuguese-speaking male with history of end-stage renal dis ease, chronic obstructive pulmonary disease, anxiety disorder, presented with encephalopathy, hyperca pnic respiratory failure. 1. Respiratory. Continue p.r.n. BiPAP, O2 support, status post treatment for pneumonia. May consid er putting him on long-acting bronchodilators. 2. Cardiovascular, on deep venous thrombosis prophylaxis. Monitor vitals. 3. Anemia. Transfuse p.r.n. Follow up CBC tomorrow. 4. Infectious disease, off antibiotics. 5. Urinary retention. Continue Flomax. Urology is following. 6. Hypothyroidism, on Synthroid. Epogen per the nephrology. 7. Restless leg syndrome, on Requip. 8. End-stage renal disease. Dialysis is planned for tomorrow. 9. Anxiety disorder. Continue Zyprexa, Trazodone and Haldol p.r.n. Clinically improving. manager club is assisting with placement. We will follow. Dictated By: LEONORA SNIDER/VIKTOR Conf#: [id number] DID#: [id number] CC: CINDY BOUDREAUX ZONE MAINTENANCE TECHNICIAN;*EndCC*
[2018-07-07 19:35] VITALS: BP 143/65; PULSE 94; RESP 20
[2018-07-07] MEDS: MIRTAZAPINE 15 MG TAB PO SCH (20:27)
[2018-07-07] MEDS: ROPINIROLE 1 MG TAB PO SCH (20:27)
[2018-07-07] MEDS: ATORVASTATIN 10 MG TAB PO SCH (20:29)
[2018-07-07] MEDS: TAMSULOSIN (SR) 0.4 MG CAP PO SCH (20:29)
[2018-07-07] MEDS: traZODone 50 MG TAB PO SCH (20:30)
[2018-07-07] MEDS: MONTELUKAST 10 MG TAB PO SCH (20:39)
[2018-07-08] VITALS (16 sets, daily range): BP systolic 112–185; BP diastolic 55–109; PULSE 73–109; RESP 18–22
[2018-07-08] MEDS: ALBUTEROL/IPRATROPIUM (NEB) 3 ML AMP NEB SCH ×7 (01:00→20:55)
[2018-07-08] MEDS: LEVOTHYROXINE 25 MCG TAB PO SCH (05:41)
[2018-07-08] MEDS: LORAZEPAM 2 MG INJ IV PRN ×2 (07:25→07:42)
[2018-07-08] MEDS: SEVELAMER CARBONATE 0.8 GM PKT PO SCH ×3 (08:00→17:12)
--- NOTE | 2018-07-08 08:40 | PN ---
DATE: 07/08/2018 SUBJECTIVE: The patient remains confused. No other acute events noted. No hemoptysis, hematemesis, or hematochezia. OBJECTIVE: VITAL SIGNS: Blood pressure is 151/70, respirations 20, pulse 93, temperature 98.1. HEENT: Head is normocephalic. NECK: Supple. HEART: Regular rate. LUNGS: Show diminished breath sounds at the base. ABDOMEN: Soft, nontender to palpation without rebound or guarding. EXTREMITIES: Negative for clubbing, cyanosis, no edema. DERMATOLOGIC: No rashes. MUSCULOSKELETAL: No joint effusion. NEUROLOGIC: No change in exam. MEDICATIONS: Reviewed. LABORATORY DATA: From 07/08/2018 was reviewed. ASSESSMENT AND PLAN: 1. End-stage renal disease. The patient is scheduled for dialysis today. We will dialyze for 3 lexii rs 2k bath, calcium 2.5. 2. Anemia. Continue to monitor hemoglobin and hematocrit levels. Continue Epogen with hemodialysis . 3. Mineral bone disorder, monitor calcium and phosphorus levels. 4. Hyperkalemia. Continue dialysis on low potassium bath. 5. Acute respiratory failure secondary to chronic obstructive pulmonary disease exacerbation, [facility] ed. 6. Encephalopathy, etiology is multifactorial. Continue to monitor. Follow up with psychiatry. 7. Anxiety disorder. Continue current treatment plan. 8. Coronary artery disease. 9. Restless legs syndrome. 10. Benign prostatic hypertrophy. Continue Flomax. 11. Hypothyroidism. Continue Synthroid. Dictated By: KITA ALVAREZ DO NR/NTS Conf#: [id number] DID#: [id number] CC: LEONORA LOUISE MD; CINDY BOUDREAUX NP;*EndCC*
[2018-07-08] MEDS: HEPARIN 5,000 UNIT/1 ML VIAL SC SCH ×2 (09:00→21:43)
[2018-07-08] MEDS: METOPROLOL 25 MG TAB PO SCH ×2 (09:00→21:40)
[2018-07-08] MEDS: FOLIC ACID 1 MG TAB PO SCH (09:00)
[2018-07-08] MEDS: DOCUSATE SODIUM 100 MG CAP PO SCH (09:00)
[2018-07-08] MEDS: PANTOPRAZOLE (EC) 40 MG TAB PO SCH ×2 (09:00→21:45)
[2018-07-08] MEDS: OLANZAPINE 5 MG TAB PO SCH ×2 (09:34→21:42)
[2018-07-08] MEDS: CARISOPRODOL 350 MG TAB PO PRN (09:34)
[2018-07-08] MEDS: LORAZEPAM 1 MG TAB PO PRN (10:04)
[2018-07-08] MEDS: EPOETIN 10000 UNITS/1 ML INJ (ESRD) SC SCH (17:13)
--- NOTE | 2018-07-08 18:35 | PN ---
DATE: 07/08/2018 SUBJECTIVE: The patient was seen, anxious, awaiting placement. software sales manager is assisting. PHYSICAL EXAMINATION: VITAL SIGNS: Temperature 97.9, pulse 98, respirations 22, saturation documented at 89% earlier to 96 %. This was on room air. GENERAL: In no acute distress. HEENT: Normocephalic, atraumatic. Anxious. CARDIOVASCULAR: S1, S2, regular rate. LUNGS: Clear. ABDOMEN: Soft, nontender. EXTREMITIES: Slight pitting edema. LABORATORY DATA: White count 4.6, hemoglobin 8.7, hematocrit 28, platelet count of 169. Chemistry: Sodium 145, potassium 5.3, chloride 107, bicarbonate 28, BUN is 66, creatinine 8.27, glucose 127. MEDICATIONS: All reviewed includin. Simethicone. 2. Protonix b.i.d. 3. Desyrel. 4. Haldol. 5. Tums. 6. Soma. 7. Zyprexa. 8. Epogen. 9. Hydralazine. 10. Colace. 11. Folic acid. 12. Renvela. 13. Synthroid. 14. Heparin. 15. DuoNeb. 16. Lipitor. 17. Lopressor. 18. Remeron. 19. Singulair. 20. Requip. 21. Flomax. 22. Ativan. 23. Zofran. 24. Tylenol. 25. Milk of Magnesia. ASSESSMENT AND PLAN: This is a 72-year-old Danish-speaking male with history of end-stage renal dis ease, chronic obstructive pulmonary disease, anxiety disorder, presented with encephalopathy, hyperca pnic respiratory failure. 1. Respiratory. Continue p.r.n. BiPAP. I recommend oxygen, status post treatment for pneumonia. T he patient unfortunately has advanced chronic obstructive pulmonary disease. 2. Cardiovascular. The patient is on deep venous thrombosis prophylaxis. 3. Anemia. Transfuse p.r.n. 4. Infectious disease, off antibiotics. No evidence of infection. 5. Urinary retention. Continue Flomax. Urology is following. In and out catheter p.r.n. 6. Hypothyroidism. Continue Synthroid. 7. Restless leg syndrome. Continue Requip. 8. End-stage renal disease. Dialysis today. 9. Anxiety disorder, on Zyprexa, Trazodone and Haldol. software sales manager is assisting with placement. Disposition is soon. We will follow. Dictated By: LEONORA SNIDER/VIKTOR Conf#: [id number] DID#: [id number] CC: CINDY BOUDREAUX SHRINK PIT OPERATOR;*End*
[2018-07-08] MEDS: traZODone 50 MG TAB PO SCH (21:38)
[2018-07-08] MEDS: ATORVASTATIN 10 MG TAB PO SCH (21:39)
[2018-07-08] MEDS: TAMSULOSIN (SR) 0.4 MG CAP PO SCH (21:39)
[2018-07-08] MEDS: MONTELUKAST 10 MG TAB PO SCH (21:41)
[2018-07-08] MEDS: ROPINIROLE 1 MG TAB PO SCH (21:41)
[2018-07-08] MEDS: MIRTAZAPINE 15 MG TAB PO SCH (21:41)
[2018-07-09 01:47] VITALS: BP 122/60; PULSE 84; RESP 22
[2018-07-09] MEDS: ALBUTEROL/IPRATROPIUM (NEB) 3 ML AMP NEB SCH ×2 (01:51→05:48)
[2018-07-09] MEDS: LEVOTHYROXINE 25 MCG TAB PO SCH (06:01)
[2018-07-09 08:00] VITALS: BP 121/75; PULSE 86; RESP 20
[2018-07-09] MEDS: SEVELAMER CARBONATE 0.8 GM PKT PO SCH ×2 (08:58→12:27)
[2018-07-09] MEDS: PANTOPRAZOLE (EC) 40 MG TAB PO SCH (08:59)
[2018-07-09] MEDS: FOLIC ACID 1 MG TAB PO SCH (08:59)
[2018-07-09] MEDS: OLANZAPINE 5 MG TAB PO SCH (08:59)
[2018-07-09] MEDS: DOCUSATE SODIUM 100 MG CAP PO SCH (08:59)
[2018-07-09] MEDS: METOPROLOL 25 MG TAB PO SCH (09:00)
[2018-07-09] MEDS: HEPARIN 5,000 UNIT/1 ML VIAL SC SCH (09:03)
--- NOTE | 2018-07-09 09:11 | PN ---
DATE: 07/09/2018 SUBJECTIVE: The patient remains confused. The patient had hemodialysis yesterday, tolerated well. OBJECTIVE: VITAL SIGNS: Blood pressure is 122/60, respirations 20, pulse 84, temperature 97.9. HEENT: Head is normocephalic. NECK: Supple. HEART: Regular rate. LUNGS: Show diminished breath sounds at the base. ABDOMEN: Soft, nontender to palpation. No rebound or guarding. EXTREMITIES: Negative for clubbing, cyanosis, no edema. DERMATOLOGIC: No rashes. MUSCULOSKELETAL: No joint effusions. NEUROLOGIC: No change in exam. MEDICATIONS: The patient's medications have been reviewed. LABORATORY DATA: Shows white count 4.6, hemoglobin 8.7, platelet count is 169. BMP for 07/09 is pending. ASSESSMENT AND PLAN: 1. End-stage renal disease. The patient had hemodialysis yesterday, tolerated well. Plan for dialy sis tomorrow. 2. Anemia. Continue to monitor hemoglobin and hematocrit levels. Continue Epogen with hemodialysis . 3. Mineral bone disorder, monitor calcium and phosphorus levels. 4. Hyperkalemia. Continue dialysis on a low potassium bath. 5. Acute respiratory failure secondary to chronic obstructive pulmonary disease exacerbation, replaced by [facility] ed. 6. Encephalopathy. Etiology is multifactorial. Continue to monitor. Follow up with psychiatry. 7. Anxiety disorder. Continue current treatment plan. 8. Coronary artery disease. 9. Restless leg syndrome. 10. Benign prostatic hypertrophy. Continue Flomax. 11. Hypothyroidism. Continue Synthroid. Dictated By: KITA OLIVEIRA/VIKTOR Conf#: [id number] DID#: [id number] CC: LEONORA LOUISE MD;*EndCC*
[2018-07-09 14:00] VITALS: BP 143/72; PULSE 82; RESP 20
--- NOTE | 2018-07-09 15:07 | PDOCDIS ---
Discharge Instructions CONDITION [id number] Patient Condition: [id number] Stable HOME CARE INSTRUCTIONS: [id number] Diet Instructions: [id number] Renal ACTIVITY: [id number] Activity Restrictions: Chptp7c No Restrictions Slowly Increase Activity [id number] Bathing Restrictions: [id number] Shower FOLLOW UP/APPOINTMENTS Follow-up Plan follow up with dialysis, see reconciliation LEONORA LOUISE MD Jul 09, 2018 15:07
--- NOTE | 2018-07-09 15:37 | PN ---
DATE: 07/09/2018 SUBJECTIVE: The patient was seen, appears to be comfortable, slightly anxious, awaiting placement. Case was discussed with staff. PHYSICAL EXAMINATION: VITAL SIGNS: Temperature 97.7, pulse 96, respirations 20, blood pressure 121/75, saturation 96%. GENERAL: In no acute distress. HEENT: Head is normocephalic, atraumatic. CARDIOVASCULAR: S1 and S2, regular rate. LUNGS: Clear. ABDOMEN: Soft, nontender. EXTREMITIES: No clubbing, cyanosis or edema. LABORATORY DATA: No new labs today. Yesterday, white count was 4.6, hemoglobin 8.7. MEDICATIONS: All reviewed. ASSESSMENT AND PLAN: A 72-year-old [place]ankan-speaking male with history of end-stage renal disease, ch ronic obstructive pulmonary disease, anxiety disorder, presented with encephalopathy, hypercapnic res piratory failure. 1. Respiratory: The patient has hypercapnic respiratory failure. O2 support as needed. Status pos t treated for pneumonia. 2. Cardiovascular: Continue deep venous thrombosis prophylaxis. 3. Anemia. Transfuse p.r.n. Epogen per nephrology. 4. Infectious disease: Off antibiotics. No evidence of infection. Status post recent treatment fo r pneumonia. 5. Urinary retention. Continue Flomax. Monitor PVR. 6. Hypothyroidism. Continue Synthroid. 7. Restless leg syndrome, on Requip. 8. End-stage renal disease. Dialysis planned every Friday, Friday, Friday. 9. Anxiety, on Zyprexa, Trazodone and Haldol. 10. Mood appears to be more stable. 11. [facility] Case management is discussing this with mariah perry. Anticipate discharge today or tomorrow. We will follow. Dictated By: LEONORA SNIDER/VIKTOR Conf#: [id number] DID#: [id number] CC: CINDY BOUDREAUX JIGMAKER;*End*
== END 2018-07-09 16:35 | DRG 189 ==
LOC: E/R 14:41 → TEL 17:49 → CANRESERV 19:51 → 5EC 06-30 18:48
PROVIDERS: ADMIT Internal Medicine; ATTEND Internal Medicine
PROC: 5A1D70Z Performance of Urinary Filtration, Intermittent, Less than 6 Hours Per Day (ICD-10-PCS; principal; 2018-06-25)
PROC: 30233N1 Transfusion of Nonautologous Red Blood Cells into Peripheral Vein, Percutaneous Approach (ICD-10-PCS; 2018-07-02)
DX: J96.22 Acute and chronic respiratory failure with hypercapnia (principal); G92 Toxic encephalopathy; N18.6 End stage renal disease; J44.1 Chronic obstructive pulmonary disease with (acute) exacerbation; I12.0 Hypertensive chronic kidney disease with stage 5 chronic kidney disease or end stage renal disease; J96.21 Acute and chronic respiratory failure with hypoxia; D63.1 Anemia in chronic kidney disease; E03.9 Hypothyroidism, unspecified; E87.5 Hyperkalemia; F41.9 Anxiety disorder, unspecified; F29 Unspecified psychosis not due to a substance or known physiological condition; G25.81 Restless legs syndrome; I25.10 Atherosclerotic heart disease of native coronary artery without angina pectoris; K59.00 Constipation, unspecified; M10.9 Gout, unspecified; N40.0 Benign prostatic hyperplasia without lower urinary tract symptoms; R33.9 Retention of urine, unspecified; Z87.891 Personal history of nicotine dependence; Z91.81 History of falling; Z90.5 Acquired absence of kidney
CPT/HCPCS: 36415; 36430; 36600; 71045; 76775; 76856; 80048; 80053; 81001; 82270; 82803; 82962; 83036; 83605; 83735; 83880; 84100; 84153; 84154; 84443; 84484; 85025; 85610; 85730; 86644; 86803; 86850; 86900; 86901; 86920; 87081; 87086; 87340; 90935; 92526; 92610; 93005; 94640; 94660; 94664; 96374; 96375; 97116; 97161; 97530; C9113; J1630; J1644; J2060; J2270; J2405; J2920; J7040; J7042; P9016; Q4081